=== PATIENT | male | born 1945 | race Caucasian/White ===

== ENCOUNTER 2016-10-18 18:37 | Inpatient (IN) ==
[2016-10-18] MEDS ORDERED: 0.9 % Sodium Chloride 1,000 ML IVC ONE (18:53)
[2016-10-18 19:10] LABS: Basophils # 0.1 K/mcL (0.0-0.2); Basophils % 0.4 %; Eosinophils # 0.1 K/mcL (0.0-0.6); Eosinophils % 0.6 %; Hematocrit 34.2 % (37.5-50.1); Hemoglobin 11.6 g/dL (12.9-16.9); Immature Granulocytes % 0.7 % (0-4); Mean Corpuscular HGB Conc 33.9 g/dL (31.6-35.5); Mean Corpuscular Hemoglobin 29.2 pg (28.0-33.3); Mean Corpuscular Volume 86.1 fL (83.0-100.0); Mean Platelet Volume 9.6 fL (9.4-12.4); Monocytes # 1.3 K/mcL (0.0-1.3); Monocytes % 10.4 %; Platelet Count 388 K/mcL (140-400); Red Blood Count 3.97 M/mcL (4.19-5.50); Red Cell Distribution Width 19.1 % (11.5-14.5); Segmented Neutrophils % 79.9 %
[2016-10-18 19:15] LABS: INR 1.2; Prothrombin Time 12.7 Seconds (9.4-12.1)
[2016-10-18 19:18] LABS: Activated Partial Thrombo Time 31.5 Seconds (26.0-36.0)
[2016-10-18 19:29] LABS: Alanine Aminotransferase 184 Units/L (0-55); Albumin/Globulin Ratio 0.5 (1.1-2.2); Alkaline Phosphatase 1223 Units/L (38-126); Amylase 83 Units/L (25-125); Aspartate Amino Transferase 176 Units/L (5-34); BUN/Creatinine Ratio 30 (6-26); Bilirubin,Direct 13.4 mg/dL (0.0-0.5); Bilirubin,Indirect 4.9 mg/dL (0.0-1.2); Bilirubin,Total 18.3 mg/dL (0.2-1.2); Blood Urea Nitrogen 30 mg/dL (8-26); Calcium 9.1 mg/dL (8.6-10.8); Carbon Dioxide 21 mEq/L (19-29); Chloride 102 mEq/L (98-109); Globulin 4.4 g/dL (2.4-3.5); Glucose 223 mg/dL (70-99); Lipase 175 Units/L (8-78); Osmolality,Calculated 283 (280-300); Sodium 130 mEq/L (136-145); Total Protein 6.4 g/dL (6.0-8.3); eGFR For African Americans > 60 (> 60); eGFR For Non-African Americans > 60 (> 60)
--- NOTE | 2016-10-18 20:09 | Emergency Department Note ---
Disposition Clinical Impression: Transaminitis, Jaundice Disposition: Admitted As Inpatient Condition: Critical [facility] Care Provider[facility] - Forms: ED Satisfaction Letter General Adult HPI - General Chief complaint: ED Recheck/Abnormal Lab/Rx Stated complaint: abnormal labs, ill Time Seen by Provider: 10/18/16 18:45 Source: patient Nursing Notes Reviewed: Yes Vital Signs Reviewed: Yes - History of Present Illness HPI Narrative: 71-year-old male who presents with concern for painless jaundice. Apparently he has been monitored at the [facility] for painless jaundice which has been worsening for approximately one month. He has no abdominal pain at this time. His family actually reported that his blood work has been worsening and the family does have a physician who reviewed the lab work and recommended the patient come to the emergency department. The patient is significantly jaundiced on arrival, pain free, vital signs stable. Pain Scale: 0 - Related Data Allergies Allergy/AdvReac Type Severity Reaction Status Date / Time No Known Allergies Allergy Verified 10/18/16 18:43 All systems ED: reviewed and negative except as stated. Past Medical History - Past Medical History Medical history: Reports: diabetes, hypertension Psychiatric history: Reports: no psych history - Social History Smoking Status: Current every day smoker Alcohol use: Reports: heavy Physical Exam Pupils equal round reactive to light extract illness movements normal Mucous membranes are moist Trachea is midline Cardiovascular exam is without murmur, rub, gallop Pulmonary exams without rales, rhonchi, wheezing Abdomen is soft and nontender without peritonitis Extremities are well perfused without edema Neurologic exams without focal neurological deficit Systemic jaundice noted scleral icterus noted - General General appearance: alert, in no apparent distress Course Vital Signs Temperature 97.4 F L 10/18/16 18:38 Pulse Rate 104 10/18/16 18:38 Respiratory Rate 14 10/18/16 18:38 Blood Pressure 145/79 10/18/16 18:38 O2 Sat by Pulse Oximetry 99 10/18/16 18:38 Temperature 97.4 F L 10/18/16 18:38 Pulse Rate 88 10/18/16 21:47 Respiratory Rate 16 10/18/16 21:47 Blood Pressure 158/72 10/18/16 21:47 O2 Sat by Pulse Oximetry 97 10/18/16 21:47 Oxygen Delivery Oxygen Delivery Room Air Medical Decision Making - MDM Narrative Medical decision making narrative: Systemic jaundice, concern for pancreatic mass, etiology is broad but could include stricture versus pancreatic cancer versus gallbladder dysfunction. I am concerned about possible pancreatic mass at this point. He does have significant transaminitis and elevated bilirubin levels. IV fluids were provided. CT scan shows mass versus stricture. There is ongoing transaminitis. Patient will need admission for MRCP. Discussed results with family. - Lab Data Result diagrams: 10/18/16 19:01 10/18/16 19:01 Lab Results 10/18/16 10/18/16 10/18/16 Range/Units 19:01 19:01 19:01 WBC 12.6 H (4.3-11.1) K/mcL RBC 3.97 L (4.19-5.50) M/mcL Hgb 11.6 L (12.9-16.9) g/dL Hct 34.2 L (37.5-50.1) % MCV 86.1 (83.0-100.0) fL MCH 29.2 (28.0-33.3) pg MCHC 33.9 (31.6-35.5) g/dL RDW 19.1 H (11.5-14.5) % Plt Count 388 (140-400) K/mcL MPV 9.6 (9.4-12.4) fL Immature Gran % 0.7 (0-4) % Seg Neutrophils % 79.9 % Lymphocytes % 8.0 % Monocytes % 10.4 % Eosinophils % 0.6 % Basophils % 0.4 % Neutrophils # 10.0 H (1.6-8.9) K/mcL Lymphocytes # 1.0 (0.6-4.6) K/mcL Monocytes # 1.3 (0.0-1.3) K/mcL Eosinophils # 0.1 (0.0-0.6) K/mcL Basophils # 0.1 (0.0-0.2) K/mcL PT 12.7 H (9.4-12.1) Seconds INR 1.2 APTT 31.5 (26.0-36.0) Seconds Sodium 130 L (136-145) mEq/L Potassium 4.0 (3.5-4.5) mEq/L Chloride 102 (98-109) mEq/L Carbon Dioxide 21 (19-29) mEq/L BUN 30 H (8-26) mg/dL Creatinine 1.00 (0.72-1.25) mg/dL Est GFR ( Amer) > 60 (> 60) Est GFR (Non-Af Amer) > 60 (> 60) BUN/Creatinine Ratio 30 H (6-26) Glucose 223 H (70-99) mg/dL Calculated Osmolality 283 (280-300) Lactic Acid (0.5-2.2) mmol/L Calcium 9.1 (8.6-10.8) mg/dL Total Bilirubin 18.3 H (0.2-1.2) mg/dL Direct Bilirubin 13.4 H (0.0-0.5) mg/dL Indirect Bilirubin 4.9 H (0.0-1.2) mg/dL AST 176 H (5-34) Units/L ALT 184 H (0-55) Units/L Alkaline Phosphatase 1223 H (38-126) Units/L Ammonia (18-72) mcmol/L Troponin I (0-0.03) ng/mL Serum Total Protein 6.4 (6.0-8.3) g/dL Albumin 2.0 L (3.5-5.0) g/dL Globulin 4.4 H (2.4-3.5) g/dL Albumin/Globulin Ratio 0.5 L (1.1-2.2) Amylase 83 (25-125) Units/L Lipase 175 H (8-78) Units/L Urine Color (Yellow) Urine Clarity (Clear) Urine pH (5.0-8.0) pH Units Ur Specific Milton (1.010-1.025) Urine Protein (Neg-Trace) mg/dL Urine Glucose (UA) (Normal) mg/dL Urine Ketones (Negative) mg/dL Urine Blood (Negative) Urine Nitrite (Negative) Urine Bilirubin (Negative) Urine Urobilinogen (Normal) mg/dL Ur Leukocyte Esterase (Negative) Urine Microscopic RBC (0-3) per hpf Urine Microscopic WBC (0-3) per hpf Ur Squamous Epith Cells (None-Few) per lpf Ur Transition Epith Cell (None-Few) per hpf Ur Renal Epithelial Cell (None-Few) per hpf Urine Bacteria (None-Few) per hpf Hyaline Casts (None-Few) per lpf Urine Mucus (Few) Ur Culture Indicated? (NO) 03/26/17 03/26/17 03/26/17 Range/Units 19:01 19:01 19:01 WBC (4.3-11.1) K/mcL RBC (4.19-5.50) M/mcL Hgb (12.9-16.9) g/dL Hct (37.5-50.1) % MCV (83.0-100.0) fL MCH (28.0-33.3) pg MCHC (31.6-35.5) g/dL RDW (11.5-14.5) % Plt Count (140-400) K/mcL MPV (9.4-12.4) fL Immature Gran % (0-4) % Seg Neutrophils % % Lymphocytes % % Monocytes % % Eosinophils % % Basophils % % Neutrophils # (1.6-8.9) K/mcL Lymphocytes # (0.6-4.6) K/mcL Monocytes # (0.0-1.3) K/mcL Eosinophils # (0.0-0.6) K/mcL Basophils # (0.0-0.2) K/mcL PT (9.4-12.1) Seconds INR APTT (26.0-36.0) Seconds Sodium (136-145) mEq/L Potassium (3.5-4.5) mEq/L Chloride (98-109) mEq/L Carbon Dioxide (19-29) mEq/L BUN (8-26) mg/dL Creatinine (0.72-1.25) mg/dL Est GFR ( Amer) (> 60) Est GFR (Non-Af Amer) (> 60) BUN/Creatinine Ratio (6-26) Glucose (70-99) mg/dL Calculated Osmolality (280-300) Lactic Acid 0.6 (0.5-2.2) mmol/L Calcium (8.6-10.8) mg/dL Total Bilirubin (0.2-1.2) mg/dL Direct Bilirubin (0.0-0.5) mg/dL Indirect Bilirubin (0.0-1.2) mg/dL AST (5-34) Units/L ALT (0-55) Units/L Alkaline Phosphatase (38-126) Units/L Ammonia 17 L (18-72) mcmol/L Troponin I 0.00 (0-0.03) ng/mL Serum Total Protein (6.0-8.3) g/dL Albumin (3.5-5.0) g/dL Globulin (2.4-3.5) g/dL Albumin/Globulin Ratio (1.1-2.2) Amylase (25-125) Units/L Lipase (8-78) Units/L Urine Color (Yellow) Urine Clarity (Clear) Urine pH (5.0-8.0) pH Units Ur Specific Milton (1.010-1.025) Urine Protein (Neg-Trace) mg/dL Urine Glucose (UA) (Normal) mg/dL Urine Ketones (Negative) mg/dL Urine Blood (Negative) Urine Nitrite (Negative) Urine Bilirubin (Negative) Urine Urobilinogen (Normal) mg/dL Ur Leukocyte Esterase (Negative) Urine Microscopic RBC (0-3) per hpf Urine Microscopic WBC (0-3) per hpf Ur Squamous Epith Cells (None-Few) per lpf Ur Transition Epith Cell (None-Few) per hpf Ur Renal Epithelial Cell (None-Few) per hpf Urine Bacteria (None-Few) per hpf Hyaline Casts (None-Few) per lpf Urine Mucus (Few) Ur Culture Indicated? (NO) 10/18/16 Range/Units 20:42 WBC (4.3-11.1) K/mcL RBC (4.19-5.50) M/mcL Hgb (12.9-16.9) g/dL Hct (37.5-50.1) % MCV (83.0-100.0) fL MCH (28.0-33.3) pg MCHC (31.6-35.5) g/dL RDW (11.5-14.5) % Plt Count (140-400) K/mcL MPV (9.4-12.4) fL Immature Gran % (0-4) % Seg Neutrophils % % Lymphocytes % % Monocytes % % Eosinophils % % Basophils % % Neutrophils # (1.6-8.9) K/mcL Lymphocytes # (0.6-4.6) K/mcL Monocytes # (0.0-1.3) K/mcL Eosinophils # (0.0-0.6) K/mcL Basophils # (0.0-0.2) K/mcL PT (9.4-12.1) Seconds INR APTT (26.0-36.0) Seconds Sodium (136-145) mEq/L Potassium (3.5-4.5) mEq/L Chloride (98-109) mEq/L Carbon Dioxide (19-29) mEq/L BUN (8-26) mg/dL Creatinine (0.72-1.25) mg/dL Est GFR ( Amer) (> 60) Est GFR (Non-Af Amer) (> 60) BUN/Creatinine Ratio (6-26) Glucose (70-99) mg/dL Calculated Osmolality (280-300) Lactic Acid (0.5-2.2) mmol/L Calcium (8.6-10.8) mg/dL Total Bilirubin (0.2-1.2) mg/dL Direct Bilirubin (0.0-0.5) mg/dL Indirect Bilirubin (0.0-1.2) mg/dL AST (5-34) Units/L ALT (0-55) Units/L Alkaline Phosphatase (38-126) Units/L Ammonia (18-72) mcmol/L Troponin I (0-0.03) ng/mL Serum Total Protein (6.0-8.3) g/dL Albumin (3.5-5.0) g/dL Globulin (2.4-3.5) g/dL Albumin/Globulin Ratio (1.1-2.2) Amylase (25-125) Units/L Lipase (8-78) Units/L Urine Color Alexander A (Yellow) Urine Clarity Clear (Clear) Urine pH 6.0 (5.0-8.0) pH Units Ur Specific Milton 1.022 (1.010-1.025) Urine Protein 30 H (Neg-Trace) mg/dL Urine Glucose (UA) 500 H (Normal) mg/dL Urine Ketones Negative (Negative) mg/dL Urine Blood Negative (Negative) Urine Nitrite Negative (Negative) Urine Bilirubin Large H (Negative) Urine Urobilinogen Normal (Normal) mg/dL Ur Leukocyte Esterase Negative (Negative) Urine Microscopic RBC 3-5 H (0-3) per hpf Urine Microscopic WBC 0-3 (0-3) per hpf Ur Squamous Epith Cells Moderate H (None-Few) per lpf Ur Transition Epith Cell Few (None-Few) per hpf Ur Renal Epithelial Cell Few (None-Few) per hpf Urine Bacteria Few (None-Few) per hpf Hyaline Casts None Seen (None-Few) per lpf Urine Mucus Few (Few) Ur Culture Indicated? NO (NO) Critical Care Time Total Critical Care Time: 31 Attestation: I spent greater than 31 minutes resuscitating this acutely L and injured male suffering from hepatic failure and biliary obstruction. He had significant transaminitis, systemic jaundice, critical care time was excluding billable procedures. He remains in critical condition with a high potential for life- threatening deterioration.
[2016-10-18 20:50] LABS: Bilirubin,Urine Large (Negative); Blood,Urine Negative (Negative); Color,Urine Orange (Yellow); Glucose,Urine (UA) 500 mg/dL (Normal); Ketones,Urine Negative (Negative); Leukocyte Esterase,Urine Negative (Negative); Nitrite,Urine Negative (Negative); Protein,Urine 30 mg/dL (Neg-Trace); Specific Gravity,Urine 1.022 (1.010-1.025); Urobilinogen,Urine Normal (Normal)
[2016-10-18 20:52] LABS: Hyaline Casts,Urine None Seen per lpf (None-Few); Squamous Epithelial Cell,Urine Moderate per lpf (None-Few); WBC,Urine 0-3 per hpf (0-3)
[2016-10-18 20:53] LABS: Clarity,Urine Clear (Clear)
[2016-10-18 21:10] LABS: Mucus,Urine Few (Few)
[2016-10-18 21:11] LABS: Bacteria,Urine Few per hpf (None-Few); Renal Epithelial Cells,Urine Few per hpf (None-Few); Transitional Epi Cells,Urine Few per hpf (None-Few)
[2016-10-19] MEDS ORDERED: *HR* HYDROmorphone (PF) 1 MG/ML SYRINGE IVP ONE (00:18)
[2016-10-19] MEDS ORDERED: Naloxone 0.4 MG/ML INJ IVP PRN (01:47)
[2016-10-19] MEDS ORDERED: Dextrose Gel 15 GM PO PRN ×2 (02:01)
[2016-10-19] MEDS ORDERED: D5% in Water 1,000 ML IVC PRN (02:01)
--- NOTE | 2016-10-19 02:06 | Internal Med History&Physical ---
Date of Encounter: 10/19/16 Time of Encounter: 01:46 Assessment and Plan (1) Obstructive jaundice Current visit: Yes Status: Acute Painless jaundice and labs showed total bilirubin of 18.3, ALT 184, AST 176, Alkaline phosphatase 1223. CT scan of abdomen showed Prominent dilatation of the biliary and pancreatic ducts - Mass versus stricture at the level of the distal common bile duct. Heterogeneity at the pancreatic head with parenchymal calcifications. Will obtain MRCP for further evaluation; GI consultation. No concern for cholangitis at this time, hence no antibiotics started. (2) COPD (chronic obstructive pulmonary disease) Current visit: Yes Status: Chronic Duonebs PRN Qualifiers: COPD type: unspecified COPD Qualified Code(s): J44.9 - Chronic obstructive pulmonary disease, unspecified (3) Diabetes mellitus Current visit: Yes Status: Chronic Sliding scale insulin Qualifiers: Diabetes mellitus type: type 2 Diabetes mellitus complication status: with unspecified complications Diabetes mellitus long-term insulin use: without long-term use Qualified Code(s): E11.8 - Type 2 diabetes mellitus with unspecified complications Internal Medicine - H&P: HPI Chief complaint: Jaundice Admitted From: Emergency Dept Plans for Post Hospital Care: Home History of present illness: Mr. Thurston is a 71 year old male with past medical h/o diabetes mellitus, hypertension, COPD. He apparently was noted to have jaundice about a month ago. He was being investigated at [facility]. He apparently was noted to have jaundice about a month ago. He apparently had a CT scan of the abdomen and apparently was referred to for further evaluation. His family members visited him yesterday and were concerned about his jaundice and wanted him to be evaluated in the ER. He was evaluated in the ER and the labs showed total bilirubin of 18.3, ALT 184, AST 176, Alkaline phosphatase 1223. CT scan of abdomen showed Prominent dilatation of the biliary and pancreatic ducts - Mass versus stricture at the level of the distal common bile duct. Heterogeneity at the pancreatic head with parenchymal calcifications. Pt is very hard of hearing. His is at the bedside and is able to give the clinical details. Yellowish discoloration of the skin for about a month. He has dark urine. Stool apparently floats when flushed. Denies abdominal pain. No significant nausea or vomiting. Has good appetite. No significant weight loss. No fever, chills, chest pain, shortness of breath, no change in the cough. He has diarrhea. No dysuria or hematuria. Family Hx reviewed and is non-contributory to current admission. Past Med Surg Social Fam HX - Past Medical History Medical history: COPD, diabetes, hyperlipidemia, hypertension Psychiatric history: no psych history - Social History Smoking Status: Current every day smoker Packs per day: 1 Smokeless Tobacco Status: No Alcohol use: none Drug use: none Internal Medicine - H&P: Meds Allergies No Known Allergies Allergy (Verified 10/18/16 18:43) All Systems PM: A 10-system review of systems was performed and is negative for pertinent findings except as documented above in the HPI. - Constitutional Vitals: Temp Pulse Resp BP Pulse Ox 97.6 F 106 14 167/77 97 10/19/16 01:09 10/19/16 01:09 10/19/16 01:09 10/19/16 01:09 10/19/16 01:09 Exam: General: Not in acute distress at the time of my evaluation. HEENT: Oral mucosa is dry. Scleral icterus present Neck: No obvious neck swellings Lungs: Clear to auscultation Cardiac: Regular rate and rhythm. No significant murmurs Abdomen: Soft, non tender. Bowel sounds present Genitourinary: No chun catheter Neurological: Alert and oriented. No gross localizing deficits. Very hard of renetta Psych: Not aggressive or agitated Extremities: no significant leg edema Skin: Lemon yellow discoloration of skin present. Spider nevi present Internal Med - H&P Results - Labs CBC & Chem 7: 10/18/16 19:01 10/18/16 19:01 - EKG Data -: EKG Interpreted by Myself EKG shows normal: sinus rhythm Rate: normal - Impressions Impressions Abdomen/Pelvis CT 10/18/16 21:41 IMPRESSION: 1. Prominent dilatation of the biliary and pancreatic ducts. Mass versus stricture at the level of the distal common bile duct. Recommend follow-up evaluation with ERCP or MRI/MRCP. 2. Heterogeneity at the pancreatic head with parenchymal calcifications. This may be sequela of chronic pancreatitis. Please correlate with any potential history. An underlying pancreatic mass cannot be excluded. 3. No CT evidence of metastatic disease in the abdomen or pelvis. D/ / Tushar Rodrigues MD / Tushar Rodrigues MD Interpreting Provider: Tushar Rodrigues MD
[2016-10-19] MEDS ORDERED: Ipratropium/Albuterol Neb 3 ML IH PRN (02:17)
[2016-10-19] MEDS: 0.9 % Sodium Chloride 1,000 ML IVC SCH ×2 (02:29→09:55)
[2016-10-19] MEDS ORDERED: *HR* Morphine 2 MG/ML SYRINGE IVP ONE (03:58)
[2016-10-19] MEDS: *HR* Dextrose 50 % in Water (Syg) 50 ML SYRINGE IVP PRN ×2 (05:33→11:46)
[2016-10-19] MEDS: Insulin LISPRO 300 UNITS/3 ML VIAL SQ SCH ×3 (05:36→16:19)
[2016-10-19] MEDS ORDERED: *HR* Morphine 2 MG/ML SYRINGE IVP PRN (07:33)
--- NOTE | 2016-10-19 07:48 | Event Note ---
Date of Encounter: 10/19/16 Time of Encounter: 07:45 patient with history of diabetes, htn and copd being evaluated at [facility] for obstructive jaundice brought in by family due to worsening jaundice and weight loss bilirubin 18.3 and alk 1223 currently in lots of pain Gi consulted ct shows CBD dilatation and mass at head of pancrease GI evaluation pending
[2016-10-19] MEDS: *HR* HYDROmorphone (PF) 1 MG/ML SYRINGE IVP PRN ×3 (08:00→17:05)
[2016-10-19 10:03] LABS: Basophils % 0.2 %; Eosinophils % 0.2 %; Hematocrit 30.7 % (37.5-50.1); Hemoglobin 10.5 g/dL (12.9-16.9); Immature Granulocytes % 0.9 % (0-4); Lymphocytes # 1.1 K/mcL (0.6-4.6); Mean Corpuscular HGB Conc 34.2 g/dL (31.6-35.5); Mean Corpuscular Hemoglobin 29.3 pg (28.0-33.3); Mean Corpuscular Volume 85.8 fL (83.0-100.0); Mean Platelet Volume 9.4 fL (9.4-12.4); Monocytes # 1.6 K/mcL (0.0-1.3); Monocytes % 8.5 %; Neutrophils # 15.3 K/mcL (1.6-8.9); Platelet Count 388 K/mcL (140-400); Red Blood Count 3.58 M/mcL (4.19-5.50); Red Cell Distribution Width 19.2 % (11.5-14.5); Segmented Neutrophils % 84.2 %
[2016-10-19 11:36] LABS: Alanine Aminotransferase 164 Units/L (0-55); Albumin/Globulin Ratio 0.5 (1.1-2.2); Alkaline Phosphatase 1131 Units/L (38-126); Aspartate Amino Transferase 174 Units/L (5-34); BUN/Creatinine Ratio 27 (6-26); Calcium 8.6 mg/dL (8.6-10.8); Carbon Dioxide 18 mEq/L (19-29); Chloride 108 mEq/L (98-109); Osmolality,Calculated 274 (280-300); Potassium 3.8 mEq/L (3.5-4.5); Sodium 133 mEq/L (136-145); Total Protein 5.8 g/dL (6.0-8.3); eGFR For African Americans > 60 (> 60); eGFR For Non-African Americans > 60 (> 60)
[2016-10-19 11:38] LABS: Blood Urea Nitrogen 18 mg/dL (8-26)
[2016-10-19 11:39] LABS: Albumin 1.8 g/dL (3.5-5.0); Glucose 37 mg/dL (70-99)
--- NOTE | 2016-10-19 12:57 | Gastroenterology Consult Note ---
<Rai Urena - Last Filed: 10/19/16 12:54> Date of Encounter: 10/19/16 Time of Encounter: 11:45 - Assessment and plan (1) Obstructive jaundice Current Visit: Yes Status: Acute Assessment and plan: CT A/P with prominent dilation of the CBD proximally to 13 mm with abrupt narrowing of the mid CBD. Pancreatic duct stump dilated to 7 mm. Heterogeneity at the pancreatic head with parenchymal calcifications, underlying pancreatic mass cannot be excluded. MRI with suspected pancreatic head mass measuring 2 x 1.5 cm causing biliary and pancreatic ductal obstruction. Plan for EUS and ERCP today. CEA normal at 3.6, CA 19-9 pending. (2) COPD (chronic obstructive pulmonary disease) Current Visit: Yes Status: Chronic Assessment and plan: Management per primary team. Qualifiers: COPD type: unspecified COPD Qualified Code(s): J44.9 - Chronic obstructive pulmonary disease, unspecified - Time Spent With Patient Total time spent is greater than 50% in coordination of care (as documented) at patient's floor/unit and/or counseling patient: GI History of Present Illness - Data of Consult Patient: new to practice Consult date: 10/19/16 Requesting Physician: Mounika Jones - Consult Narrative Reason for consult: Obstructive jaundice History of present illness: Mr. Thurston is a 71 year old male with PMHx of COPD, DM, HLD, HTN [facility]. In the ED, TB 18.3, DB 13.4, AST 176, ALT 184, Alk phos 1223. CT A/P showed promintent dilation of the biliary and pancreatic ducts, mass vs stricture at the distal CBD, heterogeneity at the pancreatic head with panenchymal calcifications. Pt is very hard of hearing. Pt very sleepy, and unable to open eyes due to sedation for MRI.History obtained from medical records and . No fever, chills, chest pain, SOB, abdominal pain , nausea, vomiting, or weight loss. Procedures: None NSAIDs: None Anticoagulation: None Past Med Surg Social Fam HX - Past Medical History Medical history: COPD, diabetes, hyperlipidemia, hypertension Psychiatric history: no psych history - Social History Smoking Status: Current every day smoker Packs per day: 1 Smokeless Tobacco Status: No Alcohol use: none Drug use: none ROS unobtainable: other (Sedation from MRI) - Constitutional Vitals: Temp Pulse Resp BP Pulse Ox 97.4 F L 93 14 165/70 97 10/19/16 11:47 10/19/16 11:47 10/19/16 11:47 10/19/16 11:47 10/19/16 11:47 General appearance: Present: cooperative, A&O X 3, no acute distress, answers questions appropriately - Head Head exam: Present: atraumatic, normocephalic - Eye Eye exam: Present: scleral icterus - ENT ENT exam: Present: mucous membranes dry - Neck Neck exam general surgery: Present: normal inspection, trachea midline - Respiratory Respiratory exam: Present: decreased breath sounds, CTAB - Cardiovascular Cardiovascular exam: Present: RRR, +S1, +S2 - GI/Abdominal GI/Abdominal exam: Present: soft, no peritoneal signs. Absent: distended, firm , tenderness - Rectal Rectal exam: Present: deferred - Extremities Exam Extremities exam: Present: warm - Neurological Exam Neurological exam: Present: no focal deficits - Psychiatric Psychiatric exam: Present: normal affect, normal mood - Skin Skin exam: Present: dry, intact, warm. Absent: normal color (Jaundice) Results - Labs CBC & Chem 7: 10/19/16 09:53 10/19/16 09:53 Labs: Last Result Calcium 8.6 mg/dL (8.6-10.8) 10/19/16 09:53 Troponin I 0.00 ng/mL (0-0.03) 10/18/16 19:01 Entire Visit Hgb 10.5 g/dL (12.9-16.9) L 10/19/16 09:53 Hct 30.7 % (37.5-50.1) L 10/19/16 09:53 PT 12.7 Seconds (9.4-12.1) H 10/18/16 19:01 Total Bilirubin 17.0 mg/dL (0.2-1.2) H 10/19/16 09:53 AST 174 Units/L (5-34) H 10/19/16 09:53 ALT 164 Units/L (0-55) H 10/19/16 09:53 Ammonia 17 mcmol/L (18-72) L 10/18/16 19:01 Amylase 83 Units/L (25-125) 10/18/16 19:01 Lipase 175 Units/L (8-78) H 10/18/16 19:01 Carcinoembryonic Ag 3.6 ng/mL (0-5.0) 10/19/16 09:53 - ABG ABG results: PT/INR, D-dimer PT 12.7 Seconds (9.4-12.1) H 10/18/16 19:01 - Impressions Impressions Abdomen MRI 10/19/16 01:58 IMPRESSION: 1. Suspected pancreatic head mass measuring 2.0 x 1.5 cm causing biliary and pancreatic ductal obstruction. Lack of intravenous contrast limits evaluation. 2. No evidence of cholelithiasis but there is mild gallbladder wall thickening and pericholecystic edema which is nonspecific. If there is concern for acute cholecystitis, HIDA scan can be performed. D/ / Wes Collins MD / Wes Collins MD Interpreting Provider: Wes Collins MD Consult Discharge Plan - Plan [facility]errals: [facility] [Primary Care Provider[facility] - <Jose Raul Jaffe - Last Filed: 10/19/16 21:05> Time of Encounter: 14:00 - Time Spent With Patient Total time spent is greater than 50% in coordination of care (as documented) at patient's floor/unit and/or counseling patient: GI History of Present Illness - Data of Consult Requesting Physician: Mounika Jones - Consult Narrative History of present illness: Mr. Thurston is a 71 year old male - Constitutional Vitals: Temp Pulse Resp BP Pulse Ox 98.3 F 95 16 155/71 95 10/19/16 19:09 10/19/16 19:09 10/19/16 19:09 10/19/16 19:09 10/19/16 19:42 Results - Labs CBC & Chem 7: 10/19/16 09:53 10/19/16 09:53 Labs: Last Result Calcium 8.6 mg/dL (8.6-10.8) 10/19/16 09:53 Troponin I 0.00 ng/mL (0-0.03) 10/18/16 19:01 Entire Visit Hgb 10.5 g/dL (12.9-16.9) L 10/19/16 09:53 Hct 30.7 % (37.5-50.1) L 10/19/16 09:53 PT 12.7 Seconds (9.4-12.1) H 10/18/16 19:01 Total Bilirubin 17.0 mg/dL (0.2-1.2) H 10/19/16 09:53 AST 174 Units/L (5-34) H 10/19/16 09:53 ALT 164 Units/L (0-55) H 10/19/16 09:53 Ammonia 17 mcmol/L (18-72) L 10/18/16 19:01 Amylase 83 Units/L (25-125) 10/18/16 19:01 Lipase 175 Units/L (8-78) H 10/18/16 19:01 Carcinoembryonic Ag 3.6 ng/mL (0-5.0) 10/19/16 09:53 - ABG ABG results: PT/INR, D-dimer PT 12.7 Seconds (9.4-12.1) H 10/18/16 19:01 - Impressions Impressions Abdomen MRI 10/19/16 01:58 IMPRESSION: 1. Suspected pancreatic head mass measuring 2.0 x 1.5 cm causing biliary and pancreatic ductal obstruction. Lack of intravenous contrast limits evaluation. 2. No evidence of cholelithiasis but there is mild gallbladder wall thickening and pericholecystic edema which is nonspecific. If there is concern for acute cholecystitis, HIDA scan can be performed. D/ / Wes Collins MD / Wes Collins MD Interpreting Provider: Wes Collins MD - Attending Attestation I examined this patient and my medical decision-making was reviewed with the LOTTERIES AGENT/PA/Advanced Practice Nurse/Resident Physician. I agree with the documented findings, disposition and treatment plan as described except to the extent set forth below.
[2016-10-20] MEDS: *HR* Dextrose 50 % in Water (Syg) 50 ML SYRINGE IVP PRN (00:33)
--- NOTE | 2016-10-20 01:02 | Anesthesia Evaluation PreOp ---
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 HX Other Medical History: Diabetes Type II, Other (Obstructive Jaundice) Alcohol Use: none Drug use: none Medications and Allergies Aspirin 81 mg PO DAILY 10/19/16 [History] Atorvastatin Calcium [Lipitor] 20 mg PO DAILY 10/19/16 [History] Cholecalciferol (Vitamin D3) [Vitamin D] 2,000 unit PO DAILY 10/19/16 [History] Insulin Glargine [Lantus] 25 unit SQ DAILY 10/19/16 [History] Lisinopril [Zestril] 5 mg PO DAILY 10/19/16 [History] Loperamide HCl [Imodium A-D] 2 mg PO BID PRN 10/19/16 [History] Allergies No Known Allergies Allergy (Verified 10/19/16 10:16) - Meds/Allergy Pre-op Review Medications Reviewed: Yes Allergies Reviewed: Yes Beta Blockers on Current Med List: No Anesthesia Results - Labs 10/19/16 09:53 10/19/16 09:53 - Imaging EKG: report reviewed (NSR according to internal Med H&P) Anesthesia Exam O2 Sat Weight 57.8 kg Weight 57.833 kg O2 Sat by Pulse Oximetry 94 O2 Sat by Pulse Oximetry 95 O2 Sat by Pulse Oximetry 95 O2 Sat by Pulse Oximetry 95 O2 Sat by Pulse Oximetry 97 O2 Sat by Pulse Oximetry 95 O2 Sat by Pulse Oximetry 97 Vital Signs Temp Pulse Resp BP Pulse Ox 97.4 F L 104 14 145/79 99 10/18/16 18:38 10/18/16 18:38 10/18/16 18:38 10/18/16 18:38 10/18/16 18:38 Vital Signs/O2 Sat, Most Current Temp Pulse Resp BP Pulse Ox 98.1 F 86 18 126/60 94 L 10/20/16 00:28 10/20/16 00:28 10/20/16 00:28 10/20/16 00:28 10/20/16 00:28 Height: 5'7'' Weight: 127# NPO (# of Hours): > 8 hrs <Virgie Parker M - Last Filed: 10/20/16 12:30> - Past History 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 Stricture at distal CBD) Anesthesia Results - Labs 10/20/16 04:50 10/20/16 04:50 Laboratory Results Impressions Abdomen/Pelvis CT 10/18/16 21:41 IMPRESSION: 1. Prominent dilatation of the biliary and pancreatic ducts. Mass versus stricture at the level of the distal common bile duct. Recommend follow-up evaluation with ERCP or MRI/MRCP. 2. Heterogeneity at the pancreatic head with parenchymal calcifications. This may be sequela of chronic pancreatitis. Please correlate with any potential history. An underlying pancreatic mass cannot be excluded. 3. No CT evidence of metastatic disease in the abdomen or pelvis. D/ / Tushar Rodrigues MD / Tushar Rodrigues MD Interpreting Provider: Tushar Rodrigues MD Abdomen MRI 10/19/16 01:58 IMPRESSION: 1. Suspected pancreatic head mass measuring 2.0 x 1.5 cm causing biliary and pancreatic ductal obstruction. Lack of intravenous contrast limits evaluation. 2. No evidence of cholelithiasis but there is mild gallbladder wall thickening and pericholecystic edema which is nonspecific. If there is concern for acute cholecystitis, HIDA scan can be performed. D/ / Wes Collins MD / Wes Collins MD Interpreting Provider: Wes Collins MD Laboratory Tests 10/18/16 10/20/16 10/20/16 19:01 04:50 05:35 PT 12.7 H INR 1.2 APTT 31.5 Est GFR (Non-Af Amer) > 60 POC Glucose 75 Calcium 8.1 L Magnesium 1.2 L Anesthesia Exam Vital Signs Temp Pulse Resp BP Pulse Ox 10/20/16 08:06 98.0 F 89 22 152/72 95 10/20/16 06:54 96 10/20/16 03:54 97.9 F 103 18 160/72 96 10/20/16 00:28 98.1 F 86 18 126/60 94 L 10/19/16 19:42 95 10/19/16 19:09 98.3 F 95 16 155/71 95 10/19/16 15:18 97.6 F 97 14 129/66 95 Intake and Output 10/19/16 10/20/16 10/20/16 23:59 07:59 15:59 Intake Total 1360 / 1360 500 / 500 871 / 871 Output Total 400 / 400 125 / 125 100 / 100 Balance 960 / 960 375 / 375 771 / 771 Intake: IV Fluids 1000 / 1000 500 / 500 331 / 331 0.9 % Sodium Chloride 1, 1000 / 1000 500 / 500 125 / 125 000 ML @ 100 mls/hr IVC . Q10H MESERET Rx#:[id number] Magnesium Sulfate 1 GM In 206 / 206 Dextrose 5% 100 ML @ 100 mls/hr IVPB ONCE ONE Rx# :[id number] Oral 360 / 360 540 / 540 Output: Urine 400 / 400 125 / 125 100 / 100 Other: Meal Dinner Breakfast Percent of Meal Consumed 25% # Voids 1 1 Blood Glucose* 78 75 - HEENT Pupil (Motor): Pupils equal, EOMI Mallampati: II Teeth: Edentulous Oral Opening: Greater than 3 - PIPE TESTING TECHNICIAN LOC: Oriented PIPE TESTING TECHNICIAN Motor: Normal RUE, Normal LUE, Normal RLE, Normal LLE, Normal Face PIPE TESTING TECHNICIAN Sensory: Normal: RUE, LUE, RLE, LLE, Face - Cardiac Rhythm: Regular Murmur: Systolic JVD: No - Pulmonary Breath Sounds: bilateral Clear Respiratory Effort: Symmetrical Anesthesia Assess/Plan ASA Score: 3 (Obstructive Jaundice, COPD, DM, HTN) Modified Arlene Scale for Level of Consciousness: Cooperative, oriented, and tranquil Anesthetic Plan: General Monitoring Plan: Standard Monitors Recovery Plan: PACU Anes Supervising Prov Stmt: Pt seen/evaluated, Anesthesia Pre-op by MD Jose Armando reviewed. Agree w/plan for GETA. Pt agrees to proceed. Consent obtained. - MD Antonio
[2016-10-20] MEDS: *HR* HYDROmorphone (PF) 1 MG/ML SYRINGE IVP PRN ×3 (03:58→20:38)
[2016-10-20] MEDS: 0.9 % Sodium Chloride 1,000 ML IVC SCH ×2 (04:00→07:48)
[2016-10-20 05:20] LABS: Hematocrit 26.6 % (37.5-50.1); Hemoglobin 9.2 g/dL (12.9-16.9); Mean Corpuscular HGB Conc 34.6 g/dL (31.6-35.5); Mean Corpuscular Hemoglobin 30.2 pg (28.0-33.3); Mean Corpuscular Volume 87.2 fL (83.0-100.0); Mean Platelet Volume 10.4 fL (9.4-12.4); Platelet Count 343 K/mcL (140-400); Red Blood Count 3.05 M/mcL (4.19-5.50)
[2016-10-20 05:32] LABS: BUN/Creatinine Ratio 21 (6-26); Blood Urea Nitrogen 16 mg/dL (8-26); Calcium 8.1 mg/dL (8.6-10.8); Carbon Dioxide 18 mEq/L (19-29); Chloride 106 mEq/L (98-109); Glucose 83 mg/dL (70-99); Magnesium 1.2 mg/dL (1.6-2.6); Osmolality,Calculated 272 (280-300); Potassium 3.7 mEq/L (3.5-4.5); Sodium 131 mEq/L (136-145); eGFR For African Americans > 60 (> 60); eGFR For Non-African Americans > 60 (> 60)
[2016-10-20] MEDS: Insulin LISPRO 300 UNITS/3 ML VIAL SQ SCH ×4 (06:10→17:53)
[2016-10-20] MEDS ORDERED: Magnesium Sulfate 2 GM in D5% in Water 100 ML IVPB STA (07:21)
--- NOTE | 2016-10-20 08:18 | Electrocardiograph Report ---
[place] [id number] Test Date: 2016-10-18 Pat Name: Elias Thurston Department: 103 Room: 3A42 Gender: M Regional Medical Director: EMELYN : 1945 Requested By: Mounika Jones Order Number: [id number] Reading MD: Zach Coyle MD Measurements Intervals [place] Rate: 100 P: 43 NE: 194 QRS: 47 QRSD: 76 T: 60 QT: 340 QTc: 397 Interpretive Statements SINUS TACHYCARDIA Electronically Signed On 10-20-2016 8:17:16 EDT by Zach Coyle MD
[2016-10-20] MEDS ORDERED: Magnesium Sulfate 1 GM in D5% in Water 100 ML IVPB ONE (12:00)
[2016-10-20] MEDS: *HR* Heparin 5,000 UNIT/ML VIAL SQ SCH ×2 (12:06→17:58)
[2016-10-20] MEDS ORDERED: *HR* Succinylcholine 200 MG/10 ML VIAL IVP ONE (13:06)
[2016-10-20] MEDS ORDERED: Lidocaine -MPF 4% 5 ML AMPUL TP ONE (13:06)
[2016-10-20] MEDS ORDERED: *HR* Propofol 200 MG/20 ML VIAL IVP ONE (13:06)
[2016-10-20] MEDS ORDERED: *HR* FentaNYL (PF) 100 MCG/2 ML VIAL ONE (13:36)
--- NOTE | 2016-10-20 13:49 | Internal Med Progress Note ---
Date of Encounter: 10/20/16 Time of Encounter: 10:30 (He said he) - Assessment and plan (1) Abdominal pain Current Visit: Yes Status: Acute Assessment and plan: secondary to suspected pancreatic mass. pain control with dilaudid. may need palliative consult to address pain. Qualifiers: Abdominal location: upper abdomen, unspecified Qualified Code(s): R10.10 - Upper abdominal pain, unspecified (2) Obstructive jaundice Current Visit: Yes Status: Acute Assessment and plan: Bilirrubin on admission was 18. CT scan of abdomen showed Prominent dilatation of the biliary and pancreatic ducts - Mass versus stricture at the level of the distal common bile duct. Heterogeneity at the pancreatic head with parenchymal calcifications. MRCP of abdomen shows suspected pancreatic head mass 1x1.5 causing biliary and pancreatic ductal obstruction. Appreciate GI help. ERCP today. (3) Hyponatremia Current Visit: Yes Status: Acute Assessment and plan: Na 131. could be dehydration from poor oral intake. IVF (4) Hypomagnesemia Current Visit: Yes Status: Acute Assessment and plan: replete (5) Hypoalbuminemia Current Visit: Yes Status: Acute (6) Transaminitis Current Visit: Yes Status: Acute Assessment and plan: secondary to obstructive jaundice. close monitor. (7) COPD (chronic obstructive pulmonary disease) Current Visit: Yes Status: Chronic Assessment and plan: stable. nebs prn Qualifiers: COPD type: unspecified COPD Qualified Code(s): J44.9 - Chronic obstructive pulmonary disease, unspecified (8) Diabetes mellitus Current Visit: Yes Status: Chronic Assessment and plan: fasting glucose is 78. accucheck. 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 He reports some abdominal pain. no nausea. - Constitutional Vitals: Temp Pulse Resp BP Pulse Ox 98.0 F 98 20 139/113 94 L 10/20/16 08:06 10/20/16 12:55 10/20/16 12:55 10/20/16 12:55 10/20/16 12:55 General appearance: Present: A&O X 3 - Eye Eye exam: Present: PERRL, scleral icterus - Respiratory Respiratory exam: Present: CTAB - Cardiovascular Cardiovascular exam: Present: RRR - GI/Abdominal GI/Abdominal exam: Present: normal bowel sounds, soft. Absent: distended, tenderness - Extremities Exam Extremities exam: Present: pedal edema - Neurological Exam Neurological exam: Present: alert, oriented X3, strengths equal and symetr throughout. Absent: facial droop, speech deficit Internal Medicine: Result - Labs CBC & Chem 7: 10/20/16 04:50 10/20/16 04:50 Labs: Short CBC 10/20/16 Range/Units 04:50 WBC 12.0 H (4.3-11.1) K/mcL Hgb 9.2 L (12.9-16.9) g/dL Hct 26.6 L (37.5-50.1) % Plt Count 343 (140-400) K/mcL BMP 10/20/16 04:50 Sodium 131 L Potassium 3.7 Chloride 106 Carbon Dioxide 18 L BUN 16 Creatinine 0.78 Glucose 83 Calcium 8.1 L - ABG Interpretation ABG results: PT/INR, D-dimer PT 12.7 Seconds (9.4-12.1) H 10/18/16 19:01 Consult Discharge Plan - Plan [facility] Provider[facility] -
[2016-10-20] MEDS ORDERED: Indomethacin 50 MG SUPP.RECT RC ONE (16:32)
[2016-10-20] MEDS ORDERED: *HR* Promethazine 25 MG/ML VIAL ONE (17:17)
[2016-10-20] MEDS ORDERED: *HR* Promethazine 25 MG/ML VIAL IVP ONE (17:19)
--- NOTE | 2016-10-20 17:34 | Anesthesia Evaluation Post Op ---
Date of Encounter: 10/20/16 Time of Encounter: 17:30 - Vital Signs Vital Signs: Vital Signs/O2 Sat/Glucose, Most Recent Temp Pulse Resp BP Pulse Ox 98.0 F 91 18 156/69 98 10/20/16 17:08 10/20/16 17:08 10/20/16 17:08 10/20/16 17:08 10/20/16 17:08 Blood Glucose* 75 - Lungs Lungs: Clear Ascult./Percussion - Airway Airway: Non-obstructed - Cardiovascular Regular Rate - Mental Status Mental Status: Alert & Oriented, Answers Appropriately - Pain Pain Scale: 0 Pain Scale used: Numeric (1 - 10) - Nausea Vomiting Nausea Vomiting: Responds to treatment with IV Meds - Hydration Hydration: NPO, Has not voided Notes: 10/20/16 17:32 AAOx3,VSS, Patient given Phenergran 12.5mg IV per endoscopy nurse with moderate relief of symptoms at this time - Discharge PostOp Status: Transfer Patient to floor
[2016-10-21] MEDS: Insulin LISPRO 300 UNITS/3 ML VIAL SQ SCH ×2 (00:10→05:28)
[2016-10-21] MEDS: 0.9 % Sodium Chloride 1,000 ML IVC SCH ×2 (02:47→08:00)
[2016-10-21 04:54] LABS: Hematocrit 28.3 % (37.5-50.1); Hemoglobin 9.8 g/dL (12.9-16.9); Red Blood Count 3.25 M/mcL (4.19-5.50)
[2016-10-21 04:55] LABS: Basophils # 0.1 K/mcL (0.0-0.2); Basophils % 0.5 %; Eosinophils # 0.2 K/mcL (0.0-0.6); Eosinophils % 1.4 %; Immature Granulocytes % 0.5 % (0-4); Lymphocytes # 1.1 K/mcL (0.6-4.6); Lymphocytes % 9.7 %; Mean Corpuscular HGB Conc 34.6 g/dL (31.6-35.5); Mean Corpuscular Hemoglobin 30.2 pg (28.0-33.3); Mean Corpuscular Volume 87.1 fL (83.0-100.0); Mean Platelet Volume 10.6 fL (9.4-12.4); Monocytes # 1.4 K/mcL (0.0-1.3); Neutrophils # 8.2 K/mcL (1.6-8.9); Platelet Count 371 K/mcL (140-400); Red Cell Distribution Width 17.4 % (11.5-14.5); Segmented Neutrophils % 74.9 %
[2016-10-21 05:14] LABS: Alanine Aminotransferase 149 Units/L (0-55); Albumin/Globulin Ratio 0.4 (1.1-2.2); Alkaline Phosphatase 1091 Units/L (38-126); Aspartate Amino Transferase 148 Units/L (5-34); BUN/Creatinine Ratio 18 (6-26); Bilirubin,Indirect 3.7 mg/dL (0.0-1.2); Blood Urea Nitrogen 15 mg/dL (8-26); Calcium 8.1 mg/dL (8.6-10.8); Carbon Dioxide 20 mEq/L (19-29); Chloride 104 mEq/L (98-109); Globulin 3.6 g/dL (2.4-3.5); Glucose 236 mg/dL (70-99); Magnesium 1.6 mg/dL (1.6-2.6); Osmolality,Calculated 276 (280-300); Potassium 3.7 mEq/L (3.5-4.5); Sodium 129 mEq/L (136-145); Total Protein 5.1 g/dL (6.0-8.3); eGFR For African Americans > 60 (> 60); eGFR For Non-African Americans > 60 (> 60)
[2016-10-21 05:21] LABS: Albumin 1.5 g/dL (3.5-5.0); Bilirubin,Direct 11.2 mg/dL (0.0-0.5); Bilirubin,Total 14.9 mg/dL (0.2-1.2)
[2016-10-21] MEDS: *HR* Heparin 5,000 UNIT/ML VIAL SQ SCH (05:32)
[2016-10-21] MEDS: *HR* HYDROmorphone (PF) 1 MG/ML SYRINGE IVP PRN (08:04)
[2016-10-21] MEDS ORDERED: *HR* OxyCODONE/APAP 5/325 TABLET PO PRN (10:53)
--- NOTE | 2016-10-21 10:59 | Gastroenterology Progress Note ---
<Rai Urena - Last Filed: 10/21/16 10:57> Date of Encounter: 10/21/16 Time of Encounter: 10:05 - Assessment and plan (1) Obstructive jaundice Current Visit: Yes Status: Acute Assessment and plan: CT A/P with prominent dilation of the CBD proximally to 13 mm with abrupt narrowing of the mid CBD. Pancreatic duct stump dilated to 7 mm. Heterogeneity at the pancreatic head with parenchymal calcifications, underlying pancreatic mass cannot be excluded. MRI with suspected pancreatic head mass measuring 2 x 1.5 cm causing biliary and pancreatic ductal obstruction. CEA normal at 3.6, CA 19-9 elevated at 476 . EUS with pancreatic mass-biopsied. ERCP localized biliary stricture, biliary sphincterotomy, temporary stent placed in CBD. Concern for cancer, may need to repeat EUS as outpatient. Ok to discharge. (2) COPD (chronic obstructive pulmonary disease) Current Visit: Yes Status: Chronic Assessment and plan: Management per primary team. Qualifiers: COPD type: unspecified COPD Qualified Code(s): J44.9 - Chronic obstructive pulmonary disease, unspecified - Time Spent With Patient Total time spent is greater than 50% in coordination of care (as documented) at patient's floor/unit and/or counseling patient: - Subjective Interval history: The patient sitting on side of bed. He is very hard of hearing. He denies abdominal pain, nausea, or vomiting. - Constitutional Vitals: Temp Pulse Resp BP Pulse Ox 97.9 F 76 14 159/71 96 10/21/16 07:22 10/21/16 07:22 10/21/16 07:22 10/21/16 07:22 10/21/16 08:07 General appearance: Present: cooperative, A&O X 3, no acute distress, answers questions appropriately - Head Head exam: Present: atraumatic, normocephalic - Eye Eye exam: Present: scleral icterus. Absent: normal appearance - ENT ENT exam: Present: mucous membranes moist - Neck Neck exam general surgery: Present: normal inspection, trachea midline - Respiratory Respiratory exam: Present: decreased breath sounds, CTAB - Cardiovascular Cardiovascular exam: Present: RRR, +S1, +S2 - GI/Abdominal GI/Abdominal exam: Present: soft, no peritoneal signs. Absent: distended, firm , guarding, tenderness - Rectal Rectal exam: Present: deferred - Extremities Exam Extremities exam: Present: pedal edema, warm - Neurological Exam Neurological exam: Present: no focal deficits - Psychiatric Psychiatric exam: Present: normal affect, normal mood - Skin Skin exam: Present: dry, intact, normal color, warm Results - Labs CBC & Chem 7: 10/21/16 04:35 10/21/16 04:35 Labs: Last Result Calcium 8.1 mg/dL (8.6-10.8) L 10/21/16 04:35 Troponin I 0.00 ng/mL (0-0.03) 10/18/16 19:01 Entire Visit Hgb 9.8 g/dL (12.9-16.9) L 10/21/16 04:35 Hct 28.3 % (37.5-50.1) L 10/21/16 04:35 PT 12.7 Seconds (9.4-12.1) H 10/18/16 19:01 Total Bilirubin 14.9 mg/dL (0.2-1.2) H 10/21/16 04:35 AST 148 Units/L (5-34) H 10/21/16 04:35 ALT 149 Units/L (0-55) H 10/21/16 04:35 Ammonia 17 mcmol/L (18-72) L 10/18/16 19:01 Amylase 83 Units/L (25-125) 10/18/16 19:01 Lipase 175 Units/L (8-78) H 10/18/16 19:01 Carcinoembryonic Ag 3.6 ng/mL (0-5.0) 10/19/16 09:53 CA 19-9 Antigen 476 U/mL (0-37) H 10/19/16 09:53 - ABG ABG results: PT/INR, D-dimer PT 12.7 Seconds (9.4-12.1) H 10/18/16 19:01 - Impressions Impressions Cath/Invasive Procedure 10/20/16 15:12 IMPRESSION: Fluoroscopy provided for ERCP procedure. Please see the intraoperative note for complete details. D/ / Jake Heaton MD / Jake Heaton MD Interpreting Provider: Jake Heaton MD Consult Discharge Plan - Plan Referrals: [facility] [Outside] - 10/30/16 10:30 am <Jose Rual Jaffe - Last Filed: 10/21/16 12:18> Time of Encounter: 11:30 - Time Spent With Patient Total time spent is greater than 50% in coordination of care (as documented) at patient's floor/unit and/or counseling patient: - Constitutional Vitals: Temp Pulse Resp BP Pulse Ox 98.0 F 98 18 161/71 96 10/21/16 11:42 10/21/16 11:42 10/21/16 11:42 10/21/16 11:42 10/21/16 11:42 Results - Labs CBC & Chem 7: 10/21/16 04:35 10/21/16 04:35 Labs: Last Result Calcium 8.1 mg/dL (8.6-10.8) L 10/21/16 04:35 Troponin I 0.00 ng/mL (0-0.03) 10/18/16 19:01 Entire Visit Hgb 9.8 g/dL (12.9-16.9) L 10/21/16 04:35 Hct 28.3 % (37.5-50.1) L 10/21/16 04:35 PT 12.7 Seconds (9.4-12.1) H 10/18/16 19:01 Total Bilirubin 14.9 mg/dL (0.2-1.2) H 10/21/16 04:35 AST 148 Units/L (5-34) H 10/21/16 04:35 ALT 149 Units/L (0-55) H 10/21/16 04:35 Ammonia 17 mcmol/L (18-72) L 10/18/16 19:01 Amylase 83 Units/L (25-125) 10/18/16 19:01 Lipase 175 Units/L (8-78) H 10/18/16 19:01 Carcinoembryonic Ag 3.6 ng/mL (0-5.0) 10/19/16 09:53 CA 19-9 Antigen 476 U/mL (0-37) H 10/19/16 09:53 - ABG ABG results: PT/INR, D-dimer PT 12.7 Seconds (9.4-12.1) H 10/18/16 19:01 - Impressions Impressions Cath/Invasive Procedure 10/20/16 15:12 IMPRESSION: Fluoroscopy provided for ERCP procedure. Please see the intraoperative note for complete details. D/ / Jake Heaton MD / Jake Heaton MD Interpreting Provider: Jake Heaton MD - Attending Attestation I examined this patient and my medical decision-making was reviewed with the PROVIDER NETWORK MGR/PA/Advanced Practice Nurse/Resident Physician. I agree with the documented findings, disposition and treatment plan as described except to the extent set forth below.
[2016-10-21] MEDS ORDERED: Insulin LISPRO 300 UNITS/3 ML VIAL SQ SCH ×2 (11:30→21:00)
[2016-10-21 11:48] VITALS: BP 161/71
--- NOTE | 2016-10-21 13:26 | Discharge Summary ---
Date of Encounter: 10/21/16 Time of Encounter: 13:24 - Discharge Diagnosis (1) Obstructive jaundice Priority: Primary Status: Acute Comments: From biliary stricture status post biliary sphincterotomy and temporary stent in CBD (2) Transaminitis Priority: Secondary Status: Acute (3) COPD (chronic obstructive pulmonary disease) Priority: Secondary Status: Chronic Qualifiers: COPD type: unspecified COPD Qualified Code(s): J44.9 - Chronic obstructive pulmonary disease, unspecified (4) Diabetes mellitus Priority: Secondary Status: Chronic Qualifiers: Diabetes mellitus type: type 2 Diabetes mellitus complication status: with unspecified complications 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 - Discharge Medications Prescriptions: OxyCODONE/APAP 5/325 [Percocet 5/325 MG] 1 each PO Q6HR PRN #14 tablet PRN Reason: Pain Home Medications: Aspirin 81 mg PO DAILY 10/19/16 [History] Atorvastatin Calcium [Lipitor] 20 mg PO DAILY 10/19/16 [History] Cholecalciferol (Vitamin D3) [Vitamin D3] 2,000 unit PO DAILY 10/19/16 [History] Insulin Glargine [Lantus] 25 unit SQ DAILY 10/19/16 [History] Lisinopril [Zestril] 5 mg PO DAILY 10/19/16 [History] Loperamide HCl [Imodium A-D] 2 mg PO BID PRN 10/19/16 [History] OxyCODONE/APAP 5/325 [Percocet 5/325 MG] 1 each PO Q6HR PRN #14 tablet 10/21/16 [Rx] Allergies/Adverse Reactions: Allergies No Known Allergies Allergy (Verified 10/19/16 10:16) Procedures/tests Complete & Pending: Procedures Performed prior 72 hours Category Date Time Status MR abdomen wo con [MR] Stat MRI 10/19/16 01:58 Completed ECG 12 lead ECG [ECG] Routine Y 10/18/16 13:24 Completed Date of admission: 10/19/16 00:12 Primary care physician: PCP PA Consults: 10/19/16 01:37 Consult to Plastics Technician [CONS] Routine Reason for Consult: potential home health. PA patient. Lives at home. POA form 10/19/16 02:00 Consult to Gastroenterology [CONS] Routine Consulting Provider: Donald Bernstein Reason for Consult: Obstructive Jaundice Call Completed: No Discharging clinician: Gina Villegas Anticipated date of discharge: 10/21/16 - Patient Status Disposition: Home, Self-Care Condition: Good Functional capacity at discharge: independent ambulation Overall status at discharge: patient is progressing back to baseline - Discharge Instructions Follow Up With: [facility] [Outside] - 10/30/16 10:30 am Forms: Work/School Release Additional Instructions: With GI in 1-2 weeks - Diet and Activity Activity: increase activity as tolerated Diet: diabetic diet, low fat, low cholesterol, low salt diet Hospital course: Mr. Thurston is a 71 year old male with history of COPD was admitted here with abdominal pain and multiple electrolyte abnormalities. CT scan of the abdomen had shown possible biliary obstruction and mass in the pancreatic head. GI was consulted. Patient underwent upper GI endoscopy and ERCP with endoscopic ultrasound yesterday. Patient was found to have biliary stricture and underwent sphincterotomy and biliary stent placement. Pancreatic mass was also biopsied. Pathology is currently pending. Patient is feeling much better today and this is tolerating oral diet well. He is stable for discharge from medical and GI standpoint. He will follow up with gastroenterology for further management and for follow-up on results of his biopsy. - Time Spent with Patient Total time spent providing and/or coordinating discharge services: Less than 30 minutes (25 min) - Constitutional Vitals: Temp Pulse Resp BP Pulse Ox 98.0 F 98 18 161/71 96 10/21/16 11:42 10/21/16 11:42 10/21/16 11:42 10/21/16 11:42 10/21/16 11:42 General appearance: Present: cooperative, mild distress, A&O X 3, answers questions appropriately - Eye Eye exam: Present: scleral icterus - Neck Neck exam general surgery: Present: supple, trachea midline. Absent: lymphadenopathy - Respiratory Respiratory exam: Present: CTAB. Absent: accessory muscle use, rales, rhonchi, wheezes - Cardiovascular Cardiovascular exam: Present: RRR, +S1, +S2. Absent: diastolic murmur, gallop, rubs, systolic murmur - GI/Abdominal GI/Abdominal exam: Present: normal bowel sounds, soft, no peritoneal signs. Absent: distended, tenderness - Extremities Exam Extremities exam: Present: warm, radial pulses palpable and symetrical. Absent : calf tenderness, cyanotic, pedal edema - Neurological Exam Neurological exam: Present: alert, oriented X3, no focal deficits. Absent: facial droop, speech deficit - Skin Additional comments: Jaundice - Attending Attestation This document has been at least partially created by [employer] recognition technology by Dr. Villegas. Errors in grammar, wording or other phrases may exist. If errors are found after the documentation is signed, they will be addressed individually in the addendum section of this document when appropriate.
== END 2016-10-21 14:19 | disposition home or self-care (01) | DRG 445 ==
LOC: EMEROO 18:37 → SUATTDRO 10-19 00:12 → 3ANU 10-19 00:12
PROVIDERS: ADMIT Internal Medicine; ATTEND Internal Medicine
PROC: ENDOEUS (2016-10-20 12:00)

== ENCOUNTER 2016-12-09 20:00 | Inpatient (IN) ==
[2016-12-09] MEDS ORDERED: 0.9 % Sodium Chloride 1,000 ML IVC ONE ×2 (20:13→21:03)
--- NOTE | 2016-12-09 20:28 | Emergency Department Note ---
Disposition Clinical Impression: UTI (urinary tract infection) Qualifiers: Urinary tract infection type: acute cystitis Hematuria presence: without hematuria Qualified Code(s): N30.00 - Acute cystitis without hematuria Sepsis Qualifiers: Sepsis type: sepsis due to unspecified organism Qualified Code(s): A41.9 - Sepsis, unspecified organism Disposition: Admitted As Inpatient Condition: Fair Fever HPI - General Chief Complaint: ED General Medical Stated Complaint: weakness, fever Time Seen by Provider: 12/09/16 20:03 Source: patient, family, EMS Limitations: no limitations, language barrier Nursing Notes Reviewed: Yes Vital Signs Reviewed: Yes - History of Present Illness HPI Narrative: 71-year-old male presents to the emergency department with a chief complaint of generalized weakness and fever. On November 24 he had a Whipple procedure due to pancreatic cancer. He has a history of COPD but is otherwise well. He had a Brewster catheter that was in place since the surgery and saw his surgeon today where the catheter was removed. They report hematuria for the last few days while the Brewster catheter was in place. They state earlier today at his appointment he was completely well and doing great. They received the call tonight as stated he was so weak he could barely get out of bed. Patient states he feels very rundown and warm. He has had no nausea or vomiting. He has had a dry cough but no production. He denies any dysuria at this time. He denies any new abdominal pain. Denies any numbness or weakness unilaterally. Denies any change in his voice, headache or change in vision. - Related Data Home Medications Medication Instructions Recorded Confirmed Aspirin 81 mg PO DAILY 10/19/16 10/19/16 Atorvastatin Calcium [Lipitor] 20 mg PO DAILY 10/19/16 10/19/16 Cholecalciferol (Vitamin D3) 2,000 unit PO DAILY 10/19/16 10/19/16 [Vitamin D3] Insulin Glargine [Lantus] 25 unit SQ DAILY 10/19/16 10/19/16 Lisinopril [Zestril] 5 mg PO DAILY 10/19/16 10/19/16 Loperamide HCl [Imodium A-D] 2 mg PO BID PRN 10/19/16 10/19/16 Previous Rx's Medication Instructions Recorded OxyCODONE/APAP 5/325 [Percocet 1 each PO Q6HR PRN #14 tablet 10/21/16 5/325 MG] Albuterol Sulfate [Albuterol 1 - 2 puff IH Q6HR PRN #1 10/25/16 Inhaler] hfa.aer.ad levoFLOXacin [Levaquin] 500 mg PO DAILY 7 Days 10/25/16 predniSONE [PredniSONE] 40 mg PO DAILY 5 Days 10/25/16 Allergies Allergy/AdvReac Type Severity Reaction Status Date / Time No Known Allergies Allergy Verified 10/19/16 10:16 All systems ED: reviewed and negative except as stated. Constitutional: Reports: fever, chills Cardiovascular: Denies: chest pain Respiratory: Reports: cough. Denies: dyspnea Gastrointestinal: Denies: abdominal pain, nausea, vomiting, hematochezia Genitourinary: Reports: hematuria. Denies: urgency, dysuria Musculoskeletal: Denies: back pain Integumentary: Denies: rash Neurological: Denies: headache, weakness, numbness Endocrine: Reports: fatigue Fever PMH - Past Medical History Medical history: Reports: COPD, diabetes, hyperlipidemia, hypertension, liver disease Psychiatric history: Reports: no psych history - Social History Smoking Status: Current every day smoker Alcohol use: Reports: none Drug use: Reports: none Physical Exam General: Patient appears chronically ill but is awake, alert and oriented 3 Cardiovascular: Tachycardic but regular S1, S2. No murmurs, rubs or gallops. Respiratory: Mild coarse breath sounds bilaterally but no wheezing. No coughing or respiratory distress Abdomen: Abdomen is soft without any guarding, rebound or rigidity. He does have some right upper quadrant discomfort with palpation without any palpable organomegaly. He has a large midline laparotomy incision that is well-healed without any erythema, drainage or discharge. Eyes: Conjunctiva clear without any scleral icterus HENT: Mucous membranes appear somewhat dry but there are no abnormal oral mucosal lesions Neuro: Cranial nerves intact. No motor or sensory deficit. Musculoskeletal: No joint tenderness or swelling Skin: Skin feels warm without any diaphoresis. No abnormal lesions. Psych: Appropriate - General Limitations: no limitations, language barrier General appearance: alert Course Course Narrative: Presents with generalized fevers and malaise at home. He was initially tachycardic but not hypotensive. Sepsis order set was ordered. Labs reveal a white count of 31.7 with a lactate of 2.1. After 2 L of fluids this did decrease to 1.7. He had a mild elevation in his alkaline phosphatase as well as his bilirubin. His chest x-ray showed no evidence of infection or abnormality. His blood cultures are pending. CT scan of the abdomen shows some postsurgical changes but no evidence of abscess or infection. His urinalysis showed nitrite positive, leukocyte esterase positive with white blood cells and I feel this is the source of the infection. He was initially started on broad-spectrum antibiotics when the source was not known, vancomycin and Zosyn. This can be more directed towards therapy on the floor. Heart rate into the 90s after 2 L of fluid and I feel this is adequate hydration. Blood pressure stable. Discussed with the on-call hospitalist, Dr. Farnsworth sets for admission, patient will be admitted to the stepdown unit. Vital Signs Temperature 99.0 F 12/09/16 20:07 Pulse Rate 124 12/09/16 20:07 Respiratory Rate 22 12/09/16 20:07 Blood Pressure 114/57 12/09/16 20:07 O2 Sat by Pulse Oximetry 96 12/09/16 20:07 Temperature 99.1 F 12/09/16 22:48 Pulse Rate 94 12/09/16 22:48 Respiratory Rate 18 12/09/16 22:48 Blood Pressure 108/52 12/09/16 22:48 O2 Sat by Pulse Oximetry 98 12/09/16 22:48 Oxygen Delivery Oxygen Delivery Room Air Fever - Lab Data Result diagrams: 12/09/16 20:27 12/09/16 20:27 Lab Results 12/09/16 12/09/16 12/09/16 Range/Units 20:27 20:27 20:27 WBC 31.7 H* (4.3-11.1) K/mcL RBC 3.71 L (4.19-5.50) M/mcL Hgb 11.0 L (12.9-16.9) g/dL Hct 33.3 L (37.5-50.1) % MCV 89.8 (83.0-100.0) fL MCH 29.6 (28.0-33.3) pg MCHC 33.0 (31.6-35.5) g/dL RDW 13.3 (11.5-14.5) % Plt Count 402 H (140-400) K/mcL MPV 8.9 L (9.4-12.4) fL Seg Neutrophils % 90.0 % Band Neutrophils % 6.0 H (0-4) % Lymphocytes % 2.0 % Monocytes % 2.0 % Neutrophils # 30.4 H (1.6-8.9) K/mcL Lymphocytes # 0.6 (0.6-4.6) K/mcL Monocytes # 0.6 (0.0-1.3) K/mcL Platelet Estimate Normal (Normal) Sodium 136 (136-145) mEq/L Potassium 3.9 (3.5-4.5) mEq/L Chloride 107 (98-109) mEq/L Carbon Dioxide 20 (19-29) mEq/L BUN 12 (8-26) mg/dL Creatinine 0.95 (0.72-1.25) mg/dL Est GFR ( Amer) > 60 (> 60) Est GFR (Non-Af Amer) > 60 (> 60) BUN/Creatinine Ratio 13 (6-26) Glucose 118 H (70-99) mg/dL Calculated Osmolality 283 (280-300) Lactic Acid 2.1 (0.5-2.2) mmol/L Calcium 7.7 L (8.6-10.8) mg/dL Total Bilirubin 1.1 (0.2-1.2) mg/dL Direct Bilirubin 0.8 H (0.0-0.5) mg/dL Indirect Bilirubin 0.3 (0.0-1.2) mg/dL AST 38 H (5-34) Units/L ALT 27 (0-55) Units/L Alkaline Phosphatase 144 H (38-126) Units/L Troponin I (0-0.03) ng/mL Serum Total Protein 5.5 L (6.0-8.3) g/dL Albumin 2.3 L (3.5-5.0) g/dL Globulin 3.2 (2.4-3.5) g/dL Albumin/Globulin Ratio 0.7 L (1.1-2.2) Lipase (8-78) Units/L Urine Color (Yellow) Urine Clarity (Clear) Urine pH (5.0-8.0) pH Units Ur Specific [place] (1.010-1.025) Urine Protein (Neg-Trace) mg/dL Urine Glucose (UA) (Normal) mg/dL Urine Ketones (Negative) mg/dL Urine Blood (Negative) Urine Nitrite (Negative) Urine Bilirubin (Negative) Urine Urobilinogen (Normal) mg/dL Ur Leukocyte Esterase (Negative) Urine Microscopic RBC (0-3) per hpf Urine Microscopic WBC (0-3) per hpf Ur Squamous Epith Cells (None-Few) per lpf Urine Bacteria (None-Few) per hpf Hyaline Casts (None-Few) per lpf Ur Culture Indicated? (NO) 12/09/16 12/09/16 12/09/16 Range/Units 20:27 20:27 21:51 WBC (4.3-11.1) K/mcL RBC (4.19-5.50) M/mcL Hgb (12.9-16.9) g/dL Hct (37.5-50.1) % MCV (83.0-100.0) fL MCH (28.0-33.3) pg MCHC (31.6-35.5) g/dL RDW (11.5-14.5) % Plt Count (140-400) K/mcL MPV (9.4-12.4) fL Seg Neutrophils % % Band Neutrophils % (0-4) % Lymphocytes % % Monocytes % % Neutrophils # (1.6-8.9) K/mcL Lymphocytes # (0.6-4.6) K/mcL Monocytes # (0.0-1.3) K/mcL Platelet Estimate (Normal) Sodium (136-145) mEq/L Potassium (3.5-4.5) mEq/L Chloride (98-109) mEq/L Carbon Dioxide (19-29) mEq/L BUN (8-26) mg/dL Creatinine (0.72-1.25) mg/dL Est GFR ( Amer) (> 60) Est GFR (Non-Af Amer) (> 60) BUN/Creatinine Ratio (6-26) Glucose (70-99) mg/dL Calculated Osmolality (280-300) Lactic Acid 1.7 (0.5-2.2) mmol/L Calcium (8.6-10.8) mg/dL Total Bilirubin (0.2-1.2) mg/dL Direct Bilirubin (0.0-0.5) mg/dL Indirect Bilirubin (0.0-1.2) mg/dL AST (5-34) Units/L ALT (0-55) Units/L Alkaline Phosphatase (38-126) Units/L Troponin I 0.02 (0-0.03) ng/mL Serum Total Protein (6.0-8.3) g/dL Albumin (3.5-5.0) g/dL Globulin (2.4-3.5) g/dL Albumin/Globulin Ratio (1.1-2.2) Lipase < 4 L (8-78) Units/L Urine Color (Yellow) Urine Clarity (Clear) Urine pH (5.0-8.0) pH Units Ur Specific [place] (1.010-1.025) Urine Protein (Neg-Trace) mg/dL Urine Glucose (UA) (Normal) mg/dL Urine Ketones (Negative) mg/dL Urine Blood (Negative) Urine Nitrite (Negative) Urine Bilirubin (Negative) Urine Urobilinogen (Normal) mg/dL Ur Leukocyte Esterase (Negative) Urine Microscopic RBC (0-3) per hpf Urine Microscopic WBC (0-3) per hpf Ur Squamous Epith Cells (None-Few) per lpf Urine Bacteria (None-Few) per hpf Hyaline Casts (None-Few) per lpf Ur Culture Indicated? (NO) 12/09/16 Range/Units 22:21 WBC (4.3-11.1) K/mcL RBC (4.19-5.50) M/mcL Hgb (12.9-16.9) g/dL Hct (37.5-50.1) % MCV (83.0-100.0) fL MCH (28.0-33.3) pg MCHC (31.6-35.5) g/dL RDW (11.5-14.5) % Plt Count (140-400) K/mcL MPV (9.4-12.4) fL Seg Neutrophils % % Band Neutrophils % (0-4) % Lymphocytes % % Monocytes % % Neutrophils # (1.6-8.9) K/mcL Lymphocytes # (0.6-4.6) K/mcL Monocytes # (0.0-1.3) K/mcL Platelet Estimate (Normal) Sodium (136-145) mEq/L Potassium (3.5-4.5) mEq/L Chloride (98-109) mEq/L Carbon Dioxide (19-29) mEq/L BUN (8-26) mg/dL Creatinine (0.72-1.25) mg/dL Est GFR ( Amer) (> 60) Est GFR (Non-Af Amer) (> 60) BUN/Creatinine Ratio (6-26) Glucose (70-99) mg/dL Calculated Osmolality (280-300) Lactic Acid (0.5-2.2) mmol/L Calcium (8.6-10.8) mg/dL Total Bilirubin (0.2-1.2) mg/dL Direct Bilirubin (0.0-0.5) mg/dL Indirect Bilirubin (0.0-1.2) mg/dL AST (5-34) Units/L ALT (0-55) Units/L Alkaline Phosphatase (38-126) Units/L Troponin I (0-0.03) ng/mL Serum Total Protein (6.0-8.3) g/dL Albumin (3.5-5.0) g/dL Globulin (2.4-3.5) g/dL Albumin/Globulin Ratio (1.1-2.2) Lipase (8-78) Units/L Urine Color Yellow (Yellow) Urine Clarity Clear (Clear) Urine pH 6.0 (5.0-8.0) pH Units Ur Specific [place] 1.027 H (1.010-1.025) Urine Protein 30 H (Neg-Trace) mg/dL Urine Glucose (UA) 500 H (Normal) mg/dL Urine Ketones Negative (Negative) mg/dL Urine Blood Trace H (Negative) Urine Nitrite Positive A (Negative) Urine Bilirubin Negative (Negative) Urine Urobilinogen Normal (Normal) mg/dL Ur Leukocyte Esterase Small H (Negative) Urine Microscopic RBC 0-3 (0-3) per hpf Urine Microscopic WBC 15-30 H (0-3) per hpf Ur Squamous Epith Cells Moderate H (None-Few) per lpf Urine Bacteria Moderate H (None-Few) per hpf Hyaline Casts None Seen (None-Few) per lpf Ur Culture Indicated? YES A (NO) Attestation Statement - Attestation Attestation: I, Francisco Dodson, examined this patient and my medical decision-making was reviewed with the ASSISTANT CASINO SHIFT MANAGER/PA/Advanced Practice Nurse/Resident Physician. I agree with the documented findings, disposition and treatment plan as described except to the extent set forth below. 71-year-old male presents with concerns of weakness, fever. Patient recently had a Whipple procedure performed during and has been improving steadily. Patient had a Brewster catheter in place for multiple days which was removed yesterday. Patient reports mild pain to the suprapubic area. He had a fever upon arrival to the emergency department today. He denies changes in his medications. He is tachycardic in the emergency department. Patient is likely septic and he was started on sepsis protocol with vancomycin and Zosyn for antibiotics.
[2016-12-09 20:38] LABS: Hematocrit 33.3 % (37.5-50.1); Mean Corpuscular Hemoglobin 29.6 pg (28.0-33.3); Mean Corpuscular Volume 89.8 fL (83.0-100.0); Mean Platelet Volume 8.9 fL (9.4-12.4); Platelet Count 402 K/mcL (140-400); Red Blood Count 3.71 M/mcL (4.19-5.50); Red Cell Distribution Width 13.3 % (11.5-14.5)
[2016-12-09 20:55] LABS: Alanine Aminotransferase 27 Units/L (0-55); Albumin 2.3 g/dL (3.5-5.0); Albumin/Globulin Ratio 0.7 (1.1-2.2); Alkaline Phosphatase 144 Units/L (38-126); Aspartate Amino Transferase 38 Units/L (5-34); BUN/Creatinine Ratio 13 (6-26); Bilirubin,Direct 0.8 mg/dL (0.0-0.5); Bilirubin,Indirect 0.3 mg/dL (0.0-1.2); Bilirubin,Total 1.1 mg/dL (0.2-1.2); Blood Urea Nitrogen 12 mg/dL (8-26); Calcium 7.7 mg/dL (8.6-10.8); Carbon Dioxide 20 mEq/L (19-29); Chloride 107 mEq/L (98-109); Globulin 3.2 g/dL (2.4-3.5); Glucose 118 mg/dL (70-99); Osmolality,Calculated 283 (280-300); Potassium 3.9 mEq/L (3.5-4.5); Sodium 136 mEq/L (136-145); Total Protein 5.5 g/dL (6.0-8.3); eGFR For African Americans > 60 (> 60); eGFR For Non-African Americans > 60 (> 60)
[2016-12-09] MEDS ORDERED: Piperacillin/Tazobactam 3.375 GM in D5% in Water (Mini-Bag+) 100 ML IVPB ONE (21:03)
[2016-12-09 21:05] LABS: Lymphocytes # 0.6 K/mcL (0.6-4.6); Monocytes # 0.6 K/mcL (0.0-1.3); Neutrophils # 30.4 K/mcL (1.6-8.9)
[2016-12-09 21:06] LABS: Platelet Estimate Normal (Normal)
[2016-12-09] MEDS ORDERED: Vancomycin 1,250 MG in D5% in Water 250 ML IVPB ONE (22:00)
[2016-12-09 22:29] LABS: Bilirubin,Urine Negative (Negative); Blood,Urine Trace (Negative); Clarity,Urine Clear (Clear); Color,Urine Yellow (Yellow); Glucose,Urine (UA) 500 mg/dL (Normal); Ketones,Urine Negative (Negative); Leukocyte Esterase,Urine Small (Negative); Nitrite,Urine Positive (Negative); Protein,Urine 30 mg/dL (Neg-Trace); Specific Gravity,Urine 1.027 (1.010-1.025); Urobilinogen,Urine Normal (Normal)
[2016-12-09 22:31] LABS: Bacteria,Urine Moderate per hpf (None-Few); Hyaline Casts,Urine None Seen per lpf (None-Few); RBC,Urine 0-3 per hpf (0-3); Squamous Epithelial Cell,Urine Moderate per lpf (None-Few); WBC,Urine 15-30 per hpf (0-3)
[2016-12-09] MEDS ORDERED: Vancomycin 1,000 MG in D5% in Water 250 ML IVPB SCH (23:45)
[2016-12-09] MEDS ORDERED: Acetaminophen 325 MG TABLET PO PRN (23:49)
[2016-12-09] MEDS ORDERED: Ondansetron 4 MG/2 ML VIAL IVP PRN (23:49)
[2016-12-09] MEDS ORDERED: *HR* OxyCODONE Immed Rel 5 MG TABLET PO PRN (23:49)
[2016-12-09] MEDS ORDERED: *HR* Morphine 2 MG/ML SYRINGE IVP PRN (23:49)
[2016-12-09] MEDS ORDERED: Naloxone 0.4 MG/ML INJ IVP PRN (23:49)
[2016-12-10] MEDS: 0.9 % Sodium Chloride 1,000 ML IVC SCH ×2 (01:35→11:21)
[2016-12-10] MEDS: *HR* Heparin 5,000 UNIT/ML VIAL SQ SCH ×3 (01:35→16:20)
[2016-12-10 04:21] LABS: Hematocrit 29.3 % (37.5-50.1); Hemoglobin 9.7 g/dL (12.9-16.9); Lymphocytes # 1.9 K/mcL (0.6-4.6); Mean Corpuscular HGB Conc 33.1 g/dL (31.6-35.5); Mean Corpuscular Hemoglobin 29.8 pg (28.0-33.3); Mean Corpuscular Volume 89.9 fL (83.0-100.0); Mean Platelet Volume 9.7 fL (9.4-12.4); Platelet Count 378 K/mcL (140-400); Red Blood Count 3.26 M/mcL (4.19-5.50); Red Cell Distribution Width 13.4 % (11.5-14.5)
[2016-12-10] MEDS: Cefepime HCl 1,000 MG in D5% in Water (Mini-Bag+) 100 ML IVPB SCH ×2 (05:16→16:19)
[2016-12-10] MEDS ORDERED: D5% in Water 1,000 ML IVC PRN (05:28)
[2016-12-10] MEDS ORDERED: *HR* Dextrose 50 % in Water (Syg) 50 ML SYRINGE IVP PRN (05:28)
[2016-12-10] MEDS ORDERED: Dextrose Gel 15 GM PO PRN ×2 (05:28)
[2016-12-10 06:07] LABS: Monocytes # 0.9 K/mcL (0.0-1.3); Neutrophils # 44.4 K/mcL (1.6-8.9); Platelet Estimate Normal (Normal)
[2016-12-10 06:33] LABS: Alanine Aminotransferase 24 Units/L (0-55); Albumin/Globulin Ratio 0.8 (1.1-2.2); Alkaline Phosphatase 108 Units/L (38-126); Aspartate Amino Transferase 23 Units/L (5-34); BUN/Creatinine Ratio 16 (6-26); Blood Urea Nitrogen 12 mg/dL (8-26); Calcium 7.2 mg/dL (8.6-10.8); Carbon Dioxide 21 mEq/L (19-29); Chloride 109 mEq/L (98-109); Globulin 2.5 g/dL (2.4-3.5); Magnesium 1.5 mg/dL (1.6-2.6); Osmolality,Calculated 278 (280-300); Potassium 3.3 mEq/L (3.5-4.5); Sodium 136 mEq/L (136-145); Total Protein 4.4 g/dL (6.0-8.3); eGFR For African Americans > 60 (> 60); eGFR For Non-African Americans > 60 (> 60)
--- NOTE | 2016-12-10 06:41 | Internal Med History&Physical ---
Date of Encounter: 12/10/16 Time of Encounter: 01:45 Assessment and Plan (1) Sepsis Current visit: Yes Status: Acute Patient has fever, tachycardia, leukocytosis with possible UTI/urinary retention vs intra-abdominal source; CT abdomen shows edematous stomach and small bowel loops, likely reactive to surgery; start aggressive IV hydration; place Brewster catheter and monitor urine output closely; monitor WBC count closely ; received IV Vancomycin and Zosyn in the ER, will switch to IV Cefepime and Vancomycin for now; lactic acid WNL. F/up blood and urine cultures. High risk for complications. Qualifiers: Sepsis type: sepsis due to unspecified organism Qualified Code(s): A41.9 - Sepsis, unspecified organism (2) UTI (urinary tract infection) Current visit: Yes Status: Acute Continue IV antibiotics as above; bedside bladder scan shows 250cc urine; Qualifiers: Urinary tract infection type: acute cystitis Hematuria presence: without hematuria Qualified Code(s): N30.00 - Acute cystitis without hematuria (3) COPD (chronic obstructive pulmonary disease) Current visit: Yes Status: Chronic not in acute exacerbation; continue PRN bronchodilators and supplemental O2 as needed; Qualifiers: COPD type: emphysema Emphysema type: unspecified Qualified Code(s): J43.9 - Emphysema, unspecified (4) Tobacco abuse Current visit: Yes Status: Chronic (5) Essential (primary) hypertension Current visit: Yes Status: Chronic (6) Diabetes mellitus Current visit: Yes Status: Chronic [place] blood glucose monitoring; current blood sugars are low normal; we will check HbA1C; Qualifiers: Diabetes mellitus type: type 2 Diabetes mellitus complication status: with unspecified complications 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 Thurston is a 71 year old male with recent Whipple procedure, presents with c/ o- not feeling well and abdominal pain. Patient is extremely hard of hearing and history is obtained from ER records and review of previous records.Patient underwent Whipple procedure at [facility] about 2 weeks back and has been tolerating oral diet until earlier this evening, when he developed fever, chills, abdominal pain at the surgical site, associated with generalized weakness, malaise and nausea but no vomiting, diarrhea. Of note, he was discharged home on Brewster catheter that was removed yesterday and patient has questionable urine output. Adamantly refuses indwelling Brewster catheter at this time. Past Med Surg Social Fam HX - Past Medical History Medical history: COPD, diabetes, hyperlipidemia, hypertension Psychiatric history: no psych history - Past Surgical History Surgical History: other (Whipple procedure) - Social History Smoking Status: Current every day smoker Packs per day: 1.5 Smokeless Tobacco Status: No Alcohol use: none Drug use: none Occupational status: retired Current living situation: Home, With Family Activity Level: Independent ambulation Recent Out of Country Travel Within the Last 8 Weeks: No Exposure or Possible Exposure to Illness During Travel: No - Additional Family History Additional family history: cannot be obtained as patient is very hard of hearing ; no family at bedside; Internal Medicine - H&P: Meds Aspirin 81 mg PO DAILY 10/19/16 [History] Atorvastatin Calcium [Lipitor] 20 mg PO DAILY 10/19/16 [History] Cholecalciferol (Vitamin D3) [Vitamin D3] 2,000 unit PO DAILY 10/19/16 [History] Insulin Glargine [Lantus] 25 unit SQ DAILY 10/19/16 [History] Lisinopril [Zestril] 5 mg PO DAILY 10/19/16 [History] Loperamide HCl [Imodium A-D] 2 mg PO BID PRN 10/19/16 [History] OxyCODONE/APAP 5/325 [Percocet 5/325 MG] 1 each PO Q6HR PRN #14 tablet 10/21/16 [Rx] Albuterol Sulfate [Albuterol Inhaler] 1 - 2 puff IH Q6HR PRN #1 hfa.aer.ad 10/25 [Rx] levoFLOXacin [Levaquin] 500 mg PO DAILY 7 Days 10/25/16 [Rx] predniSONE [PredniSONE] 40 mg PO DAILY 5 Days 10/25/16 [Rx] Allergies No Known Allergies Allergy (Verified 10/19/16 10:16) All Systems PM: A 10-system review of systems was performed and is negative for pertinent findings except as documented above in the HPI. - Constitutional Constitutional: chills, fatigue, fever(s), malaise, weakness - EENT Eyes: no change in vision, no discharge, no pain, no photophobia Ears: no ear discharge, no ear pain, no tinnitus Nose, mouth and throat: no dysphagia, no nasal discharge, no neck pain, no sore throat - Cardiovascular Cardiovascular ROS IM: no chest pain, no diaphoresis, no dyspnea, no lightheadedness, no palpitations, no syncope - Respiratory Respiratory: no cough, no dyspnea, no wheezing, no excessive phlegm production - Gastrointestinal Gastrointestinal: abdominal pain - Musculoskeletal Musculoskeletal ROS IM: no numbness, no tingling - Integumentary Integumentary IM: no rash, no unusual bruising - Neurological Neurological ROS: no confusion, no convulsions, no focal weakness, no numbness, no tingling, no tremor(s) - Hematologic/Lymphatic Hematologic/Lymphatic: no easy bruising - Constitutional Vitals: Temp Pulse Resp BP Pulse Ox 99.1 F 100 12 110/54 96 12/10/16 04:33 12/10/16 04:33 12/10/16 04:33 12/10/16 04:33 12/10/16 04:33 General appearance: Present: mild distress, A&O X 3 - ENT Additional comments: very hard of hearing - Respiratory Respiratory exam: Present: CTAB. Absent: accessory muscle use, rales, rhonchi, wheezes - Cardiovascular Cardiovascular exam: Present: RRR, +S1, +S2. Absent: diastolic murmur, gallop, rubs, systolic murmur - GI/Abdominal GI/Abdominal exam: Present: normal bowel sounds, soft (midline vertical surgical incision healing well with surrounding and underlying edema/tenderness/ induration, no foul-smelling discharge), no peritoneal signs. Absent: distended , tenderness - Extremities Exam Extremities exam: Present: full ROM, warm, radial pulses palpable and symetrical. Absent: calf tenderness, cyanotic, pedal edema - Neurological Exam Neurological exam: Present: CN II-XII intact, oriented X3, no focal deficits. Absent: pronater drift, facial droop, speech deficit - Skin Skin exam: Present: dry, intact Internal Med - H&P Results - Labs CBC & Chem 7: 12/10/16 03:24 12/09/16 20:27
[2016-12-10 06:59] LABS: Albumin 1.9 g/dL (3.5-5.0)
[2016-12-10 07:00] LABS: Glucose 35 mg/dL (70-99)
[2016-12-10 07:21] LABS: Hemoglobin A1C 7.4 %
[2016-12-10] MEDS: Insulin LISPRO 300 UNITS/3 ML VIAL SQ SCH ×3 (07:29→16:21)
[2016-12-10] MEDS ORDERED: Magnesium Oxide 400 MG TABLET PO ONE (09:00)
[2016-12-10] MEDS: Vancomycin 1,000 MG in D5% in Water 250 ML IVPB SCH (11:14)
--- NOTE | 2016-12-10 11:15 | Event Note ---
<Lorenzo Jefferson - Last Filed: 12/10/16 19:02> Date of Encounter: 12/10/16 Time of Encounter: 08:40 Mr. Thurston is a 71 year old male, hard of hearing, that presented for difficulty to urinate x 2 weeks. Reported recent history 2 weeks ago of Whipple procedure for pancreatic cancer, he reports being discharged with a chun due to difficulty urinating and desired for discharge. Patient states he followed up with surgeon, Dr. Palma Coppola yesterday AM, was doing well at that time and chun was removed. He notes that afternoon at approximately 3 pm she felt weak with difficulty getting out of bed, was shaking, and unable to urinate. He states that family called EMS because he was "shaking". Upon arrival patient was found to be tachycardiac at 124, temp 99F, RR 22, BP 114/57 and O2 sat 96%. WBC 31.7->47.2->35.8. Lactic acid 2.1->1.7->1.0. UA positive for blood, nitrite , leukocyte esterase, bacteria, moderate epith cells. Patient had a CT abdomen reflective of post Whipple, some gastric distention with edematous changes, no obstruction; improving biliary dilatation and pancreatic duct dilatation; no free air, no abscess. Patient received one dose Vancomycin and Zosyn in the ED, continued on Cefepine and Vancomycin. He denies any abdominal pain, diarrhea, vomiting. Admits to nausea, burning with urination, difficulty urinating, chills/shaking, and weakness. Patient refusing chun catheter at this time. Only noting urination with bowel movements , notes history of blood in urine. No pain on palpation of abdomen, no erythema or discharge noted at midline incision. Lungs CTAB, no crackles, rales, rhochi on lung exam. No pain on palpation of chest, RRR. No acute distress, very hard of hearing. Spoke to Urology for consult, recommending increasing Flomax to 0.8mg. Spoke with Surgeon, Dr. Coppola from [facility] as family was concerned about need for transfer, discussed case with provider; we have agreed at this time patient can remain at [facility] as he is stable, we have infectious source, and WBC improved. Will consider transfer if patient's status changes. This was discussed with patient and family that is agreeable to current plan of care. Assessment and plan: 1.Catheter associated UTI: presentation and UA supportive for UTI, culture pending. Indwelling chun for 2 weeks, removed yesterday. Will continue IV antibiotics; cefepine & Vanc. Monitor patinet, vitals, CBC. Urology consulted. Increased Flomax to 0.8mg daily. Patient refusing chun catheter. 2.COPD-stable 3.HTN-may be able to back off on IVFs 4.DM-Currently on corrective scale, consider restarting home dose of 30units lantus daily. <Martin Finley - Last Filed: 12/11/16 14:05> Date of Encounter: 12/10/16 Pt was admitted earlier this AM with presumed UTI with profound leukocytosis. He has been improving during the day. Exam Alert. Comfortable Abd soft Continue current plan of care.
[2016-12-10 14:11] LABS: Mean Platelet Volume 9.6 fL (9.4-12.4); Red Cell Distribution Width 13.4 % (11.5-14.5)
[2016-12-10 14:13] LABS: Hematocrit 26.9 % (37.5-50.1); Hemoglobin 9.1 g/dL (12.9-16.9); Mean Corpuscular HGB Conc 33.8 g/dL (31.6-35.5); Mean Corpuscular Hemoglobin 30.6 pg (28.0-33.3); Mean Corpuscular Volume 90.6 fL (83.0-100.0); Platelet Count 328 K/mcL (140-400); Red Blood Count 2.97 M/mcL (4.19-5.50)
[2016-12-10 14:25] LABS: BUN/Creatinine Ratio 17 (6-26); Blood Urea Nitrogen 13 mg/dL (8-26); Carbon Dioxide 20 mEq/L (19-29); Chloride 108 mEq/L (98-109); Glucose 236 mg/dL (70-99); Osmolality,Calculated 284 (280-300); Potassium 3.9 mEq/L (3.5-4.5); Sodium 133 mEq/L (136-145); eGFR For African Americans > 60 (> 60); eGFR For Non-African Americans > 60 (> 60)
[2016-12-10 14:46] LABS: Lymphocytes # 2.9 K/mcL (0.6-4.6); Monocytes # 2.2 K/mcL (0.0-1.3); Neutrophils # 30.8 K/mcL (1.6-8.9)
[2016-12-10 14:47] LABS: Dohle Bodies Present (Not Present); Toxic Granulation Present (Not Present)
--- NOTE | 2016-12-10 18:42 | Electrocardiograph Report ---
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
[2016-12-11] MEDS: 0.9 % Sodium Chloride 1,000 ML IVC SCH (00:03)
[2016-12-11] MEDS: Insulin LISPRO 300 UNITS/3 ML VIAL SQ SCH ×5 (00:04→21:40)
[2016-12-11] MEDS: Vancomycin 1,000 MG in D5% in Water 250 ML IVPB SCH ×3 (00:05→21:40)
[2016-12-11] MEDS: *HR* Heparin 5,000 UNIT/ML VIAL SQ SCH ×4 (00:06→23:52)
[2016-12-11] MEDS: Cefepime HCl 1,000 MG in D5% in Water (Mini-Bag+) 100 ML IVPB SCH ×2 (04:02→17:23)
--- NOTE | 2016-12-11 07:15 | Urology - Consult Note ---
Date of Encounter: 12/11/16 Time of Encounter: 07:13 - Assessment and Plan (1) Urinary hesitancy Current Visit: Yes Status: Acute Assessment and plan: Recommend for patient to continue with 2 Flomax per day. Patient can follow-up with me in 2-3 weeks once discharged from hospital. (2) UTI (urinary tract infection) Current Visit: Yes Status: Acute Assessment and plan: Continue broad-spectrum antibiotic until culture results return. Qualifiers: Urinary tract infection type: acute cystitis Hematuria presence: without hematuria Qualified Code(s): N30.00 - Acute cystitis without hematuria Urology CN:HPI Consult date: 12/11/16 Reason for consult Urology: Other (urinary retention) Requesting physician: Lorenzo Jefferson History of present illness: Elias is a 71-year-old male with a history of recent Whipple procedure. Patient is admitted now secondary to likely urinary tract infection with elevated WBC. Patient had catheter removed prior to arrival to the hospital. He has been having some difficulty with voiding with post void residuals between 150-250. Patient has refused replacement of his catheter. His urine culture is presumptively positive for gram negatives. Patient states that he is also going to refuse any further blood draws. Past Med Surg Social Fam HX - Past Medical History Medical history: COPD, diabetes, hyperlipidemia, hypertension Psychiatric history: no psych history - Past Surgical History Surgical History: other (Whipple procedure) - Social History Smoking Status: Current every day smoker Packs per day: 1.5 Smokeless Tobacco Status: No Alcohol use: none Drug use: none Medications and Allergies Aspirin 81 mg PO DAILY 10/19/16 [History] Atorvastatin Calcium [Lipitor] 20 mg PO DAILY 10/19/16 [History] Cholecalciferol (Vitamin D3) [Vitamin D3] 2,000 unit PO DAILY 10/19/16 [History] Insulin Glargine [Lantus] 30 unit SQ DAILY 10/19/16 [History] Lisinopril [Zestril] 5 mg PO DAILY 10/19/16 [History] Docusate [Colace] 100 mg PO BID PRN 12/10/16 [History] Furosemide [Lasix] 20 mg PO DAILY 12/10/16 [History] Ibuprofen [Motrin] 400 mg PO DAILY PRN 12/10/16 [History] Metformin HCl [Metformin HCl ER] 1,000 mg PO DAILY 12/10/16 [History] Metoclopramide [Reglan] 10 mg PO QIDAC PRN 12/10/16 [History] Nicotine Patch [Nicoderm] 21 mg TD DAILY 12/10/16 [History] Omeprazole [PriLOSEC] 20 mg PO DAILY 12/10/16 [History] OxyCODONE/APAP 5/325 [Percocet 5/325 MG] 2 tab PO Q4H PRN 12/10/16 [History] Tamsulosin [Flomax] 0.4 mg PO DAILY 12/10/16 [History] Allergies No Known Allergies Allergy (Verified 10/19/16 10:16) Review of Systems - Constitutional no chills - EENT Nose, mouth and throat: no dizziness - Cardiovascular no chest pain - Respiratory no cough - Gastrointestinal abdominal pain - Genitourinary as per HPI Exam Initial Vital Signs Temp Pulse Resp BP Pulse Ox 99.0 F 124 22 114/57 96 12/09/16 20:07 12/09/16 20:07 12/09/16 20:07 12/09/16 20:07 12/09/16 20:07 - General physical appearance Present: well developed - Respiratory Present: normal respiratory effort - Cardiovascular Cardiovascular exam IM: RRR - Abdomen Abdomen: Present: soft Urology Results - Labs 12/10/16 13:39 12/10/16 13:39 Abnormal lab results WBC 35.8 K/mcL (4.3-11.1) H* 12/10/16 13:39 RBC 2.97 M/mcL (4.19-5.50) L 12/10/16 13:39 Hgb 9.1 g/dL (12.9-16.9) L 12/10/16 13:39 Hct 26.9 % (37.5-50.1) L 12/10/16 13:39 Neutrophils # 30.8 K/mcL (1.6-8.9) H 12/10/16 13:39 Monocytes # 2.2 K/mcL (0.0-1.3) H 12/10/16 13:39 Toxic Granulation Present (Not Present) A 12/10/16 13:39 Dohle Bodies Present (Not Present) A 12/10/16 13:39 Sodium 133 mEq/L (136-145) L 12/10/16 13:39 Glucose 236 mg/dL (70-99) H 12/10/16 13:39 POC Glucose 148 (58-89) H 12/10/16 19:32 Hemoglobin A1c 7.4 % (-5.6) H 12/10/16 03:24 Calcium 7.0 mg/dL (8.6-10.8) L 12/10/16 13:39 Magnesium 1.5 mg/dL (1.6-2.6) L 12/10/16 03:24 Direct Bilirubin 0.8 mg/dL (0.0-0.5) H 12/09/16 20:27 Serum Total Protein 4.4 g/dL (6.0-8.3) L 12/10/16 03:24 Albumin 1.9 g/dL (3.5-5.0) L 12/10/16 03:24 Albumin/Globulin Ratio 0.8 (1.1-2.2) L 12/10/16 03:24 Lipase < 4 Units/L (8-78) L 12/09/16 20:27 Ur Specific [place] 1.027 (1.010-1.025) H 12/09/16 22:21 Urine Protein 30 mg/dL (Neg-Trace) H 12/09/16 22:21 Urine Glucose (UA) 500 mg/dL (Normal) H 12/09/16 22:21 Urine Blood Trace (Negative) H 12/09/16 22:21 Urine Nitrite Positive (Negative) A 12/09/16 22:21 Ur Leukocyte Esterase Small (Negative) H 12/09/16 22:21 Urine Microscopic WBC 15-30 per hpf (0-3) H 12/09/16 22:21 Ur Squamous Epith Cells Moderate per lpf (None-Few) H 12/09/16 22:21 Urine Bacteria Moderate per hpf (None-Few) H 12/09/16 22:21 Ur Culture Indicated? YES (NO) A 12/09/16 22:21 Diabetes panel 12/10/16 Range/Units 13:39 Sodium 133 L (136-145) mEq/L Potassium 3.9 (3.5-4.5) mEq/L Chloride 108 (98-109) mEq/L Carbon Dioxide 20 (19-29) mEq/L BUN 13 (8-26) mg/dL Creatinine 0.77 (0.72-1.25) mg/dL Glucose 236 H (70-99) mg/dL Calcium 7.0 L (8.6-10.8) mg/dL Calcium panel 12/10/16 Range/Units 13:39 Calcium 7.0 L (8.6-10.8) mg/dL Pituitary panel 12/10/16 Range/Units 13:39 Sodium 133 L (136-145) mEq/L Potassium 3.9 (3.5-4.5) mEq/L Chloride 108 (98-109) mEq/L Carbon Dioxide 20 (19-29) mEq/L BUN 13 (8-26) mg/dL Creatinine 0.77 (0.72-1.25) mg/dL Glucose 236 H (70-99) mg/dL Calcium 7.0 L (8.6-10.8) mg/dL Adrenal panel 12/10/16 Range/Units 13:39 Sodium 133 L (136-145) mEq/L Potassium 3.9 (3.5-4.5) mEq/L Chloride 108 (98-109) mEq/L Carbon Dioxide 20 (19-29) mEq/L BUN 13 (8-26) mg/dL Creatinine 0.77 (0.72-1.25) mg/dL Glucose 236 H (70-99) mg/dL Calcium 7.0 L (8.6-10.8) mg/dL All other labs normal. Consult Discharge Plan - Plan [facility]errals: [facility] [Primary Care Provider[facility] -
[2016-12-11 09:17] LABS: Hematocrit 33.6 % (37.5-50.1); Hemoglobin 11.1 g/dL (12.9-16.9); Mean Corpuscular Hemoglobin 30.1 pg (28.0-33.3); Mean Corpuscular Volume 91.1 fL (83.0-100.0); Mean Platelet Volume 9.3 fL (9.4-12.4); Platelet Count 319 K/mcL (140-400); Red Blood Count 3.69 M/mcL (4.19-5.50); Red Cell Distribution Width 13.3 % (11.5-14.5)
[2016-12-11 10:08] LABS: Basophils # 0.5 K/mcL (0.0-0.2); Eosinophils # 0.5 K/mcL (0.0-0.6); Neutrophils # 21.9 K/mcL (1.6-8.9)
[2016-12-11 10:09] LABS: Platelet Estimate Normal (Normal)
--- NOTE | 2016-12-11 10:18 | Internal Med Progress Note ---
<Lorenzo Jefferson - Last Filed: 12/11/16 14:40> Date of Encounter: 12/11/16 Time of Encounter: 09:00 - Assessment and plan (1) Catheter-associated urinary tract infection Current Visit: Yes Status: Acute Assessment and plan: Present on admission. Two week history of indwelling chun for urinary hesitancy s/p Whipple procedure at [facility]. Gram negative bacteria on prelim Urine Culture, awaiting final culture to adjust medication. Will continue IV antibiotics; cefepine & Vanc. Monitor patient, vitals, CBC. Urology consulted recommended increasing Flomax from 0.4mg to 0.8mg daily. Bladder scan showing 150-250cc urine retained. Patient refused chun catheter, though urinary better today after flomax. Plan to restart Reglan and colace on discharge, currently holding inpatient to ensure loose stools are not related to infectious source. Qualifiers: Indwelling urinary catheter type: indwelling urethral catheter Encounter type: initial encounter Qualified Code(s): T83.511A - Infection and inflammatory reaction due to indwelling urethral catheter, initial encounter; N39.0 - Urinary tract infection, site not specified (2) Urinary hesitancy Current Visit: Yes Status: Acute Assessment and plan: See plan above. (3) COPD (chronic obstructive pulmonary disease) Current Visit: Yes Status: Chronic Assessment and plan: No acure exacerbation. Stable on room air. Qualifiers: COPD type: emphysema Emphysema type: unspecified Qualified Code(s): J43.9 - Emphysema, unspecified (4) Diabetes mellitus Current Visit: Yes Status: Chronic Assessment and plan: POC BG ranging from 89-296. Most recent BG 125. Patient on Lantus 30units daily at home. Currently on Corrective SSI as concern of BMP glucose 35 yesterday. Consider restarting home insulin dose. Qualifiers: Diabetes mellitus type: type 2 Diabetes mellitus complication status: with unspecified complications Diabetes mellitus long-term insulin use: without terminal worker use Qualified Code(s): E11.8 - Type 2 diabetes mellitus with unspecified complications (5) Essential (primary) hypertension Current Visit: Yes Status: Chronic Assessment and plan: Stable currently, last BP 155/62. (6) Tobacco abuse Current Visit: Yes Status: Chronic Assessment and plan: Spouse said patient on nicotine patch at home, will offer as prn, consider making this scheduled if patient stays longer. (7) Hypoalbuminemia Current Visit: No Status: Acute Assessment and plan: Protein malnutrition, possible dilution from IVFs. Cont to Monitor. (8) Hypomagnesemia Current Visit: No Status: Acute Assessment and plan: Mg 1.5>1.1 Replacing today (9) Hyponatremia Current Visit: No Status: Acute Assessment and plan: Hx of hyponatremia, Na was 129 on 10/21/16 consider mild SIADH as Na appears to decline with hydration. IVFs d/c. Continue to monitor - Time Spent With Patient 25 - 35 minutes - Subjective Interval history: Patient states he is urinating every 15mins, without difficulty. He states he feels better and is ready to go home, present in the afternoon. I discussed care plan with patient and spouse who agrees to continue course and see about possible discharge tomorrow pending MA labs. - Constitutional Vitals: Temp Pulse Resp BP Pulse Ox 98.0 F 87 14 161/106 95 12/11/16 06:37 12/11/16 06:37 12/11/16 06:37 12/11/16 06:37 12/11/16 08:00 General appearance: Present: mild distress, A&O X 3, no acute distress, answers questions appropriately - Head Head exam: Present: atraumatic, normocephalic - Eye Eye exam: Present: EOMI - ENT ENT exam: Present: mucous membranes dry - Neck Neck exam general surgery: Present: full ROM - Respiratory Respiratory exam: Present: decreased breath sounds, CTAB - Cardiovascular Cardiovascular exam: Present: RRR - GI/Abdominal GI/Abdominal exam: Present: soft. Absent: firm, guarding, tenderness Additional comments: midline incision - Extremities Exam Extremities exam: Present: warm. Absent: pedal edema, tenderness - Neurological Exam Neurological exam: Present: alert, no focal deficits - Psychiatric Psychiatric exam: Present: agitated - Skin Skin exam: Present: dry, normal color, warm. Absent: cyanosis, rash Internal Medicine: Result - Labs CBC & Chem 7: 12/11/16 09:07 12/11/16 09:07 Labs: Short CBC 12/10/16 12/11/16 Range/Units 13:39 09:07 WBC 35.8 H* 24.9 H (4.3-11.1) K/mcL Hgb 9.1 L 11.1 L D (12.9-16.9) g/dL Hct 26.9 L 33.6 L (37.5-50.1) % Plt Count 328 319 (140-400) K/mcL Neutrophils # 30.8 H 21.9 H (1.6-8.9) K/mcL BMP 12/10/16 13:39 Sodium 133 L Potassium 3.9 Chloride 108 Carbon Dioxide 20 BUN 13 Creatinine 0.77 Glucose 236 H Calcium 7.0 L Consult Discharge Plan - Plan [facility]errals: [facility] [Primary Care Provider] - <Martin Finley - Last Filed: 12/11/16 16:02> Date of Encounter: 12/11/16 - Assessment and plan (1) Catheter-associated urinary tract infection Current Visit: Yes Status: Acute Qualifiers: Indwelling urinary catheter type: indwelling urethral catheter Encounter type: subsequent encounter Qualified Code(s): T83.511D - Infection and inflammatory reaction due to indwelling urethral catheter, subsequent encounter ; N39.0 - Urinary tract infection, site not specified (2) Sepsis Current Visit: Yes Status: Acute Assessment and plan: Urine cx positive. Blood cx neg thus far. Awaiting final ID and sensitivity Qualifiers: Sepsis type: sepsis due to unspecified organism Qualified Code(s): A41.9 - Sepsis, unspecified organism (3) Essential (primary) hypertension Current Visit: Yes Status: Chronic (4) Diabetes mellitus Current Visit: Yes Status: Chronic Qualifiers: Diabetes mellitus type: type 2 Diabetes mellitus complication status: with unspecified complications Diabetes mellitus terminal worker insulin use: without long-term use Qualified Code(s): E11.8 - Type 2 diabetes mellitus with unspecified complications (5) COPD (chronic obstructive pulmonary disease) Current Visit: Yes Status: Chronic Qualifiers: COPD type: emphysema Emphysema type: unspecified Qualified Code(s): J43.9 - Emphysema, unspecified (6) Tobacco abuse Current Visit: Yes Status: Chronic (7) Pancreatic cancer Current Visit: Yes Status: Resolved Assessment and plan: s/p whipple Qualifiers: Pancreatic malignancy location: tail of pancreas Qualified Code(s): C25.2 - Malignant neoplasm of tail of pancreas (8) Moderate protein-calorie malnutrition Current Visit: Yes Status: Chronic - Constitutional Vitals: Temp Pulse Resp BP Pulse Ox 98.0 F 89 18 155/62 98 12/11/16 11:56 12/11/16 11:56 12/11/16 11:56 12/11/16 11:56 12/11/16 11:56 Internal Medicine: Result - Labs CBC & Chem 7: 12/11/16 09:07 12/11/16 09:07 Labs: Short CBC 12/11/16 Range/Units 09:07 WBC 24.9 H (4.3-11.1) K/mcL Hgb 11.1 L D (12.9-16.9) g/dL Hct 33.6 L (37.5-50.1) % Plt Count 319 (140-400) K/mcL Neutrophils # 21.9 H (1.6-8.9) K/mcL BMP 12/11/16 09:07 Sodium 131 L Potassium 3.9 Chloride 106 Carbon Dioxide 18 L BUN 10 Creatinine 0.73 Glucose 242 H Calcium 7.8 L - Attending Attestation I examined this patient and my medical decision-making was reviewed with the Resident Physician on 12/11/16. I agree with the documented findings, disposition and treatment plan as described except to the extent set forth below. Mr. Thurston is currently admitted for sepsis related to CAUTI. He is moderate to high risk due to potential for worsening clinical status from infection. Mr. Tuhrston is doing somewhat better today. His WBC has been decreasing. Blood cx neg thus far but urine positive. He refused labs initially but agreed later. Exam Alert. Comfortable Heart reg No wheeze No edema No abd pain Very [place] I/P 1. CAUTI - present on admission 2. Leukocytosis Further diagnoses and plan as above.
[2016-12-11 10:34] LABS: BUN/Creatinine Ratio 14 (6-26); Blood Urea Nitrogen 10 mg/dL (8-26); Calcium 7.8 mg/dL (8.6-10.8); Carbon Dioxide 18 mEq/L (19-29); Chloride 106 mEq/L (98-109); Glucose 242 mg/dL (70-99); Magnesium 1.1 mg/dL (1.6-2.6); Osmolality,Calculated 279 (280-300); Potassium 3.9 mEq/L (3.5-4.5); Sodium 131 mEq/L (136-145); eGFR For African Americans > 60 (> 60); eGFR For Non-African Americans > 60 (> 60)
[2016-12-11] MEDS ORDERED: Magnesium Sulfate 2 GM in D5% in Water 100 ML IVPB ONE (14:26)
--- NOTE | 2016-12-11 14:34 | Discharge Summary ---
<Lorenzo Jefferson - Last Filed: 12/11/16 14:32> Date of Encounter: 12/11/16 - Discharge Diagnosis (1) Catheter-associated urinary tract infection Priority: Primary Status: Acute (2) Urinary hesitancy Priority: Secondary Status: Acute (3) COPD (chronic obstructive pulmonary disease) Priority: Secondary Status: Chronic Qualifiers: COPD type: emphysema Emphysema type: unspecified Qualified Code(s): J43.9 - Emphysema, unspecified (4) Diabetes mellitus Priority: Secondary Status: Chronic Qualifiers: Diabetes mellitus type: type 2 Diabetes mellitus complication status: with unspecified complications Diabetes mellitus superintendent terminal insulin use: without superintendent terminal use Qualified Code(s): E11.8 - Type 2 diabetes mellitus with unspecified complications (5) Essential (primary) hypertension Priority: Secondary Status: Chronic (6) Tobacco abuse Priority: Secondary Status: Chronic (7) Hypoalbuminemia Priority: Secondary Status: Acute (8) Hypomagnesemia Priority: Secondary Status: Acute (9) Hyponatremia Priority: Secondary Status: Acute - Discharge Medications Prescriptions: levoFLOXacin [Levaquin] 500 mg PO DAILY #7 tablet Levofloxacin [Levaquin] 500 mg PO DAILY #1 tablet Tamsulosin [Flomax] 0.4 mg PO BID #60 cap.er.24h Home Medications: Aspirin 81 mg PO DAILY 10/19/16 [History] Atorvastatin Calcium [Lipitor] 20 mg PO DAILY 10/19/16 [History] Cholecalciferol (Vitamin D3) [Vitamin D3] 2,000 unit PO DAILY 10/19/16 [History] Insulin Glargine [Lantus] 30 unit SQ DAILY 10/19/16 [History] Lisinopril [Zestril] 5 mg PO DAILY 10/19/16 [History] Docusate [Colace] 100 mg PO BID PRN 12/10/16 [History] Furosemide [Lasix] 20 mg PO DAILY 12/10/16 [History] Ibuprofen [Motrin] 400 mg PO DAILY PRN 12/10/16 [History] Metformin HCl [Metformin HCl ER] 1,000 mg PO DAILY 12/10/16 [History] Metoclopramide [Reglan] 10 mg PO QIDAC PRN 12/10/16 [History] Nicotine Patch [Nicoderm] 21 mg TD DAILY 12/10/16 [History] Omeprazole [PriLOSEC] 20 mg PO DAILY 12/10/16 [History] OxyCODONE/APAP 5/325 [Percocet 5/325 MG] 2 tab PO Q4H PRN 12/10/16 [History] Levofloxacin [Levaquin] 500 mg PO DAILY #1 tablet 12/12/16 [Rx] Tamsulosin [Flomax] 0.4 mg PO BID #60 cap.er.24h 12/12/16 [Rx] levoFLOXacin [Levaquin] 500 mg PO DAILY #7 tablet 12/12/16 [Rx] Allergies/Adverse Reactions: Allergies No Known Allergies Allergy (Verified 10/19/16 10:16) Date of admission: 12/10/16 03:35 Primary care physician: PCP [facility] Consults: 12/10/16 18:59 Consult to Urology [CONS] Routine Consulting Provider: Urology Day Reason for Consult: CAUTI, difficulty urinating, refusing chun catheter. Call Completed: Yes Anticipated date of discharge: 12/12/16 - Patient Status Disposition: Home, Self-Care Condition: Fair Functional capacity at discharge: independent ambulation Overall status at discharge: patient is progressing back to baseline - Discharge Instructions Instructions: Urinary Tract Infection in Men (DC), Chronic Obstructive Pulmonary Disease (DC) Follow [facility] With: [facility] [Primary Care Provider[facility] - - Diet and Activity Activity: increase activity as tolerated Diet: advance to your usual diet Hospital course: Mr. Thurston is a 71 year old male, hard of hearing, that presented for difficulty to urinate x 2 weeks. Reported recent history 2 weeks ago of Whipple procedure for pancreatic cancer, he reports being discharged with a chun due to difficulty urinating and desired for discharge. Patient states he followed up with surgeon, Dr. Palma Coppola yesterday AM, was doing well at that time and chun was removed. He notes that afternoon at approximately 3 pm she felt weak with difficulty getting out of bed, was shaking, and unable to urinate. He states that family called EMS because he was "shaking". Upon arrival patient was found to be tachycardiac at 124, temp 99F, RR 22, BP 114/57 and O2 sat 96%. WBC 31.7(>47.2>35.8>225). Lactic acid 2.1(>1.7>1.0). UA positive for blood, nitrite, leukocyte esterase, bacteria, moderate epith cells. Patient had a CT abdomen reflective of post Whipple, some gastric distention with edematous changes, no obstruction; improving biliary dilatation and pancreatic duct dilatation; no free air, no abscess. Patient received one dose Vancomycin and Zosyn in the ED, continued on Cefepine and Vancomycin. He denies any abdominal pain, diarrhea, vomiting. Admits to nausea, burning with urination, difficulty urinating, chills/shaking, and weakness. Patient refusing chun catheter at this time. Only noting urination with bowel movements , notes history of blood in urine. No pain on palpation of abdomen, no erythema or discharge noted at midline incision. Lungs CTAB, no crackles, rales, rhochi on lung exam. No pain on palpation of chest, RRR. No acute distress, very hard of hearing. Spoke to Urology for consult, recommending increasing Flomax to 0.8mg and follow up as outpatient in 2-3 weeks. Spoke with Surgeon, Dr. Coppola from [facility] as family was concerned about need for transfer, discussed case with provider who agreed not needed at that time as patient was stable, we have infectious source, and WBC was improving. This was discussed with patient and family that was agreeable to the plan of care. - Time Spent with Patient Total time spent providing and/or coordinating discharge services: - Constitutional Vitals: Temp Pulse Resp BP Pulse Ox 98.0 F 89 18 155/62 98 12/11/16 11:56 12/11/16 11:56 12/11/16 11:56 12/11/16 11:56 12/11/16 11:56 General appearance: Present: mild distress, A&O X 3 <Long Larsen - Last Filed: 12/12/16 08:57> Date of Encounter: 12/12/16 Time of Encounter: 08:57 Date of admission: 12/10/16 03:35 [facility] care physician: [facility] Consults: 12/10/16 18:59 Consult to Urology [CONS] Routine Consulting Provider: Urology Day Reason for Consult: CAUTI, difficulty urinating, refusing chun catheter. Call Completed: Yes Discharging clinician: Long Larsen Hospital course: Patients pseudomonas was sensitive to levaquin. Will be discharged on po levaquin for 7 days. Patient refused to get labs this morning or conitnue IV abx. He is ok with going home on po levaquin. - Time Spent with Patient Total time spent providing and/or coordinating discharge services: - Constitutional Vitals: Temp Pulse Resp BP Pulse Ox 97.8 F 94 16 154/76 96 12/12/16 07:39 12/12/16 07:39 12/12/16 07:39 12/12/16 07:39 12/12/16 07:39 - Head Head exam: Present: atraumatic, normocephalic - Eye Eye exam: Present: PERRL, conjuntiva pink, sclera anicteric Pupils: Present: PERRL - Neck Neck exam general surgery: Present: supple, trachea midline. Absent: lymphadenopathy - Respiratory Respiratory exam: Present: CTAB. Absent: accessory muscle use, rales, rhonchi, wheezes - Cardiovascular Cardiovascular exam: Present: RRR, +S1, +S2. Absent: diastolic murmur, gallop, rubs, systolic murmur - GI/Abdominal GI/Abdominal exam: Present: normal bowel sounds, soft, no peritoneal signs. Absent: distended, tenderness - Extremities Exam Extremities exam: Present: warm, radial pulses palpable and symetrical. Absent : calf tenderness, cyanotic, pedal edema - Neurological Exam Neurological exam: Present: CN II-XII intact, oriented X3, no focal deficits. Absent: pronater drift, facial droop, speech deficit <Martin Finley - Last Filed: 12/12/16 18:45> Date of Encounter: 12/12/16 - Discharge Diagnosis (1) Catheter-associated urinary tract infection Status: Acute Qualifiers: Indwelling urinary catheter type: indwelling urethral catheter Encounter type: subsequent encounter Qualified Code(s): T83.511D - Infection and inflammatory reaction due to indwelling urethral catheter, subsequent encounter ; N39.0 - Urinary tract infection, site not specified (2) Sepsis Priority: Secondary Status: Resolved Qualifiers: Sepsis type: sepsis due to unspecified organism Qualified Code(s): A41.9 - Sepsis, unspecified organism (3) Essential (primary) hypertension Status: Chronic (4) Diabetes mellitus Status: Chronic Qualifiers: Diabetes mellitus type: type 2 Diabetes mellitus complication status: with unspecified complications Diabetes mellitus halfway insulin use: without superintendent terminal use Qualified Code(s): E11.8 - Type 2 diabetes mellitus with unspecified complications (5) COPD (chronic obstructive pulmonary disease) Status: Chronic Qualifiers: COPD type: emphysema Emphysema type: unspecified Qualified Code(s): J43.9 - Emphysema, unspecified (6) Tobacco abuse Status: Chronic (7) Pancreatic cancer Priority: Secondary Status: Resolved Qualifiers: Pancreatic malignancy location: tail of pancreas Qualified Code(s): C25.2 - Malignant neoplasm of tail of pancreas (8) Moderate protein-calorie malnutrition Priority: Secondary Status: Chronic Date of admission: 12/10/16 03:35 Primary care physician: [facility] Consults: 12/10/16 18:59 Consult to Urology [CONS] Routine Consulting Provider: Urology Day Reason for Consult: CAUTI, difficulty urinating, refusing chun catheter. Call Completed: Yes Hospital course: Mr. Thurston is a 71 year old male - Time Spent with Patient Total time spent providing and/or coordinating discharge services: 38min - Constitutional Vitals: Temp Pulse Resp BP Pulse Ox 97.8 F 94 16 154/76 96 12/12/16 07:39 12/12/16 07:39 12/12/16 07:39 12/12/16 07:39 12/12/16 08:00 - Attending Attestation I examined this patient and my medical decision-making was reviewed with the Resident Physician on 12/12/16. I agree with the documented findings, disposition and treatment plan as described except to the extent set forth below. Mr. Thurston is insistent on leaving this morning. He refused blood work. He is feeling better. His blood cx are neg and urine has pseudomonas. No issues overnight. He is afebrile and vitals stable. Exam alert. Comfortable Heart reg No wheeze Plan D/C today on PO Levaquin Follow up with PCP and surgeon - need WBC rechecked Continue increased Flomax dose.
[2016-12-11] MEDS ORDERED: Nicotine 21 MG PATCH.TD24 TD PRN (15:00)
[2016-12-12 05:04] LABS: Basophils # 0.1 K/mcL (0.0-0.2); Basophils % 0.4 %; Eosinophils # 0.2 K/mcL (0.0-0.6); Eosinophils % 1.3 %; Hematocrit 30.4 % (37.5-50.1); Hemoglobin 9.8 g/dL (12.9-16.9); Immature Granulocytes % 0.4 % (0-4); Lymphocytes % 13.7 %; Mean Corpuscular HGB Conc 32.2 g/dL (31.6-35.5); Mean Corpuscular Hemoglobin 29.3 pg (28.0-33.3); Mean Corpuscular Volume 90.7 fL (83.0-100.0); Mean Platelet Volume 9.4 fL (9.4-12.4); Monocytes # 0.9 K/mcL (0.0-1.3); Monocytes % 6.4 %; Neutrophils # 11.1 K/mcL (1.6-8.9); Platelet Count 324 K/mcL (140-400); Red Blood Count 3.35 M/mcL (4.19-5.50); Red Cell Distribution Width 13.3 % (11.5-14.5); Segmented Neutrophils % 77.8 %
[2016-12-12 05:16] LABS: BUN/Creatinine Ratio 11 (6-26); Blood Urea Nitrogen 8 mg/dL (8-26); Calcium 7.7 mg/dL (8.6-10.8); Carbon Dioxide 21 mEq/L (19-29); Chloride 107 mEq/L (98-109); Glucose 115 mg/dL (70-99); Magnesium 1.4 mg/dL (1.6-2.6); Osmolality,Calculated 279 (280-300); Potassium 3.9 mEq/L (3.5-4.5); Sodium 135 mEq/L (136-145); eGFR For African Americans > 60 (> 60); eGFR For Non-African Americans > 60 (> 60)
[2016-12-12 07:40] VITALS: BP 154/76
[2016-12-12] MEDS: Insulin LISPRO 300 UNITS/3 ML VIAL SQ SCH (08:34)
[2016-12-12] MEDS: *HR* Heparin 5,000 UNIT/ML VIAL SQ SCH (08:35)
[2016-12-12] MEDS: Vancomycin 1,000 MG in D5% in Water 250 ML IVPB SCH (08:36)
[2016-12-12] MEDS: Cefepime HCl 1,000 MG in D5% in Water (Mini-Bag+) 100 ML IVPB SCH (08:36)
[2016-12-12] MEDS ORDERED: levoFLOXacin 500 MG TABLET PO ONE (09:15)
[2016-12-12] MEDS ORDERED: Aminoglycoside Consult 1 EACH MC ONE (11:57)
== END 2016-12-12 11:58 | disposition home or self-care (01) | DRG 698 ==
LOC: 2NENU 20:00 → EMEROO 20:00 → 2NENU 23:28
PROVIDERS: ADMIT Internal Medicine; ATTEND Internal Medicine

== ENCOUNTER 2017-01-20 14:23 | Inpatient (IN) ==
[2017-01-20] MEDS ORDERED: *HR* HYDROmorphone (PF) 1 MG/ML SYRINGE IVP ONE (15:09)
[2017-01-20] MEDS ORDERED: 0.9 % Sodium Chloride 500 ML IVC ONE (15:09)
[2017-01-20] MEDS ORDERED: Lidocaine Viscous Oral Soln 15 ML SOLUTION MM STA (15:09)
[2017-01-20] MEDS ORDERED: Ondansetron 4 MG/2 ML VIAL IVP ONE (15:09)
[2017-01-20 16:38] LABS: INR 1.2; Prothrombin Time 13.5 Seconds (9.4-12.1)
[2017-01-20 16:39] LABS: Hemoglobin 8.9 g/dL (12.9-16.9)
[2017-01-20 16:40] LABS: Eosinophils # 0.1 K/mcL (0.0-0.6); Hematocrit 26.5 % (37.5-50.1); Lymphocytes % 43.1 %; Mean Corpuscular HGB Conc 33.6 g/dL (31.6-35.5); Mean Corpuscular Volume 86.3 fL (83.0-100.0); Mean Platelet Volume 9.5 fL (9.4-12.4); Monocytes % 1.1 %; Neutrophils # 0.9 K/mcL (1.6-8.9); Red Blood Count 3.07 M/mcL (4.19-5.50); Red Cell Distribution Width 13.7 % (11.5-14.5); Segmented Neutrophils % 51.8 %
[2017-01-20 16:45] LABS: Alanine Aminotransferase 8 Units/L (0-55); Albumin 2.3 g/dL (3.5-5.0); Albumin/Globulin Ratio 0.8 (1.1-2.2); Alkaline Phosphatase 72 Units/L (38-126); Aspartate Amino Transferase 14 Units/L (5-34); BUN/Creatinine Ratio 13 (6-26); Bilirubin,Total 0.4 mg/dL (0.2-1.2); Blood Urea Nitrogen 10 mg/dL (8-26); Calcium 8.2 mg/dL (8.6-10.8); Carbon Dioxide 27 mEq/L (19-29); Chloride 104 mEq/L (98-109); Glucose 133 mg/dL (70-99); Magnesium 1.3 mg/dL (1.6-2.6); Osmolality,Calculated 281 (280-300); Potassium 3.7 mEq/L (3.5-4.5); Sodium 135 mEq/L (136-145); Total Protein 5.3 g/dL (6.0-8.3); eGFR For African Americans > 60 (> 60); eGFR For Non-African Americans > 60 (> 60)
[2017-01-20 16:58] LABS: Lymphocytes # 0.7 K/mcL (0.6-4.6); Platelet Count 67 K/mcL (140-400)
[2017-01-20 17:00] LABS: Platelet Estimate Marked Decrease (Normal)
--- NOTE | 2017-01-20 18:45 | Emergency Department Note ---
Disposition Clinical Impression: Pancolitis, Abdominal pain with vomiting Diarrhea Qualifiers: Diarrhea type: unspecified type Qualified Code(s): R19.7 - Diarrhea, unspecified Disposition: Admitted As Inpatient [facility]Primary Care Provider[facility] - Forms: ED Satisfaction Letter Abdominal Pain HPI - General Chief Complaint: ED GI Bleed Stated Complaint: Rectal Bleed Time Seen by Provider: 01/20/17 14:39 Source: patient, family Mode of arrival: ambulatory Limitations: no limitations Nursing Notes Reviewed: Yes Vital Signs Reviewed: Yes - History of Present Illness Pt Subjective Complaint: abdominal pain Onset (ago): day(s) (4) Consistency: constant Location: diffuse Pain Scale: 6 Quality: cramping, aching Radiation: none Improves with: nothing Worsens with: nothing Associated symptoms: Reports: nausea, vomiting, diarrhea. Denies: hematemesis, hematochezia Treatments prior to arrival: prescription analgesics - Related Data Home Medications Medication Instructions Recorded Confirmed Aspirin 81 mg PO DAILY 10/19/16 01/04/17 Atorvastatin Calcium [Lipitor] 20 mg PO DAILY 10/19/16 01/04/17 Cholecalciferol (Vitamin D3) 2,000 unit PO DAILY 10/19/16 01/04/17 [Vitamin D3] Insulin Glargine [Lantus] 30 unit SQ DAILY 10/19/16 01/04/17 Lisinopril [Zestril] 5 mg PO DAILY 10/19/16 01/04/17 Docusate [Colace] 100 mg PO BID PRN 12/10/16 01/04/17 Furosemide [Lasix] 20 mg PO DAILY 12/10/16 01/04/17 Metformin HCl [Metformin HCl ER] 1,000 mg PO DAILY 12/10/16 01/04/17 Omeprazole [PriLOSEC] 20 mg PO DAILY 12/10/16 01/04/17 Previous Rx's Medication Instructions Recorded Capecitabine [Xeloda] 3 tab PO BID #70 tablet 12/23/16 Omeprazole [PriLOSEC] 20 mg PO BIDAC #30 cap 12/23/16 Ondansetron HCl [Zofran] 4 mg PO Q4HR #30 tablet 12/23/16 Prochlorperazine Maleate 10 mg PO Q6H PRN #30 tablet 12/23/16 [Compazine] Lipase/Protease/Amylase [Creon Dr 1 each PO QIDAC #120 cap 01/04/17 24,000 Units Capsule] Lidocaine/Prilocaine [Emla] 1 appl TP AD #30 gm 01/14/17 Magic Mouthwash 10 ml PO Q3H PRN #240 ml 01/18/17 Allergies Allergy/AdvReac Type Severity Reaction Status Date / Time No Known Allergies Allergy Verified 10/19/16 10:16 All systems ED: reviewed and negative except as stated. Constitutional: Reports: weakness Gastrointestinal: Reports: abdominal pain, nausea, vomiting, diarrhea Abdominal Pain PMH - Past Medical History Medical history: Reports: arthritis, cancer, COPD, diabetes, hyperlipidemia, hypertension, other Male Surgical History: Reports: other Psychiatric history: Reports: no psych history - Social History Smoking status: Current every day smoker Alcohol use: Reports: none Drug use: Reports: none Physical Exam - General Limitations: no limitations General appearance: alert, in no apparent distress - Head Head exam: atraumatic, normocephalic, normal inspection - Eye Eye exam: Present: normal appearance, PERRL, EOMI - ENT ENT exam: other (patient has mucosal ulcerations) - Neck Neck exam: Present: normal inspection, full ROM, trachea midline - Chest Chest inspection: Present: normal inspection, symmetric chest wall rise - Cardiovascular Cardiovascular exam: Present: regular rate, normal rhythm, normal heart sounds - Abdominal Exam Abdominal exam: Present: soft Abdominal tenderness: Present: RLQ, LLQ, moderate - Back Exam Back exam: Present: normal inspection, full ROM. Absent: tenderness - Neurological Exam Neurological exam: Present: alert, oriented X3 - Psychiatric Psychiatric exam: Present: normal affect, normal mood - Skin Skin exam: Present: warm, dry, intact, normal color Course Vital Signs Temperature 97.9 F 01/20/17 14:38 Pulse Rate 102 01/20/17 14:38 Respiratory Rate 16 01/20/17 14:38 Blood Pressure 101/64 01/20/17 14:38 O2 Sat by Pulse Oximetry 97 01/20/17 14:38 Temperature 97.9 F 01/20/17 14:38 Pulse Rate 76 01/20/17 18:33 Respiratory Rate 16 01/20/17 18:33 Blood Pressure 139/66 01/20/17 18:33 O2 Sat by Pulse Oximetry 95 06/28/17 18:33 Oxygen Delivery Oxygen Delivery Room Air Abdominal Pain - Lab Data Result diagrams: 01/20/17 16:36 01/20/17 16:19 Lab Results 01/20/17 01/20/17 01/20/17 Range/Units 16:19 16:19 16:19 WBC (4.3-11.1) K/mcL RBC (4.19-5.50) M/mcL Hgb (12.9-16.9) g/dL Hct (37.5-50.1) % MCV (83.0-100.0) fL MCH (28.0-33.3) pg MCHC (31.6-35.5) g/dL RDW (11.5-14.5) % Plt Count (140-400) K/mcL MPV (9.4-12.4) fL Immature Gran % (0-4) % Seg Neutrophils % % Lymphocytes % % Monocytes % % Eosinophils % % Basophils % % Neutrophils # (1.6-8.9) K/mcL Lymphocytes # (0.6-4.6) K/mcL Monocytes # (0.0-1.3) K/mcL Eosinophils # (0.0-0.6) K/mcL Basophils # (0.0-0.2) K/mcL Platelet Estimate (Normal) PT 13.5 H (9.4-12.1) Seconds INR 1.2 APTT 30.0 (26.0-36.0) Seconds Sodium 135 L (136-145) mEq/L Potassium 3.7 (3.5-4.5) mEq/L Chloride 104 (98-109) mEq/L Carbon Dioxide 27 (19-29) mEq/L BUN 10 (8-26) mg/dL Creatinine 0.75 (0.72-1.25) mg/dL Est GFR ( Amer) > 60 (> 60) Est GFR (Non-Af Amer) > 60 (> 60) BUN/Creatinine Ratio 13 (6-26) Glucose 133 H (70-99) mg/dL Calculated Osmolality 281 (280-300) Calcium 8.2 L (8.6-10.8) mg/dL Magnesium 1.3 L (1.6-2.6) mg/dL Total Bilirubin 0.4 (0.2-1.2) mg/dL AST 14 (5-34) Units/L ALT 8 (0-55) Units/L Alkaline Phosphatase 72 (38-126) Units/L Serum Total Protein 5.3 L (6.0-8.3) g/dL Albumin 2.3 L (3.5-5.0) g/dL Globulin 3.0 (2.4-3.5) g/dL Albumin/Globulin Ratio 0.8 L (1.1-2.2) Blood Type A NEGATIVE Antibody Screen NEGATIVE 01/20/17 Range/Units 16:36 WBC 1.7 L (4.3-11.1) K/mcL RBC 3.07 L (4.19-5.50) M/mcL Hgb 8.9 L (12.9-16.9) g/dL Hct 26.5 L (37.5-50.1) % MCV 86.3 (83.0-100.0) fL MCH 29.0 (28.0-33.3) pg MCHC 33.6 (31.6-35.5) g/dL RDW 13.7 (11.5-14.5) % Plt Count 67 L (140-400) K/mcL MPV 9.5 (9.4-12.4) fL Immature Gran % 0.0 (0-4) % Seg Neutrophils % 51.8 % Lymphocytes % 43.1 % Monocytes % 1.1 % Eosinophils % 4.0 % Basophils % 0.0 % Neutrophils # 0.9 L (1.6-8.9) K/mcL Lymphocytes # 0.7 (0.6-4.6) K/mcL Monocytes # 0.0 (0.0-1.3) K/mcL Eosinophils # 0.1 (0.0-0.6) K/mcL Basophils # 0.0 (0.0-0.2) K/mcL Platelet Estimate Marked Decrease L (Normal) PT (9.4-12.1) Seconds INR APTT (26.0-36.0) Seconds Sodium (136-145) mEq/L Potassium (3.5-4.5) mEq/L Chloride (98-109) mEq/L Carbon Dioxide (19-29) mEq/L BUN (8-26) mg/dL Creatinine (0.72-1.25) mg/dL Est GFR ( Amer) (> 60) Est GFR (Non-Af Amer) (> 60) BUN/Creatinine Ratio (6-26) Glucose (70-99) mg/dL Calculated Osmolality (280-300) Calcium (8.6-10.8) mg/dL Magnesium (1.6-2.6) mg/dL Total Bilirubin (0.2-1.2) mg/dL AST (5-34) Units/L ALT (0-55) Units/L Alkaline Phosphatase (38-126) Units/L Serum Total Protein (6.0-8.3) g/dL Albumin (3.5-5.0) g/dL Globulin (2.4-3.5) g/dL Albumin/Globulin Ratio (1.1-2.2) Blood Type Antibody Screen
[2017-01-20] MEDS ORDERED: 0.9 % Sodium Chloride 1,000 ML IVC ONE ×2 (20:01→21:33)
[2017-01-20] MEDS ORDERED: Ondansetron 4 MG/2 ML VIAL IVP PRN (21:10)
[2017-01-20] MEDS ORDERED: Naloxone 0.4 MG/ML INJ IVP PRN (21:10)
[2017-01-20] MEDS ORDERED: *HR* HYDROmorphone (PF) 1 MG/ML SYRINGE IVP PRN (21:10)
[2017-01-20] MEDS ORDERED: Magic Mouthwash 10 ML UD Cup PO PRN ×2 (21:13→21:24)
[2017-01-20] MEDS ORDERED: Dextrose Gel 15 GM PO PRN ×2 (21:34)
[2017-01-20] MEDS ORDERED: D5% in Water 1,000 ML IVC PRN (21:34)
[2017-01-20] MEDS ORDERED: *HR* Dextrose 50 % in Water (Syg) 50 ML SYRINGE IVP PRN (21:34)
--- NOTE | 2017-01-20 21:38 | Internal Med History&Physical ---
Date of Encounter: 01/20/17 Time of Encounter: 21:34 Assessment and Plan (1) Pancolitis Current visit: Yes Status: Acute Patient with bloody diarrhea and abdominal pain. CT abd/pelvis showed pancolitis suspicious for infection or inflammatory colitis. Patient is immunosuppressed on chemotherapy for his pancreatic cancer. Suspect c.diff. c.diff PCR ordered. Flagyl and Cipro IVPB IV fluids 0.9NS at 75mL/hr clear liquid diet, advance as tolerated. Orange and dilaudid PRN for abdominal pain. (2) Neutropenia Current visit: Yes Status: Acute Patient with WBC of 1.7 and absolute neutrophil count of 0.9. Down from previously normal values prior to initiating chemotherapy. Will hold Xeloda. Neutropenic precautions. Qualifiers: Neutropenia type: secondary to cancer chemotherapy Qualified Code(s): D70.1 - Agranulocytosis secondary to cancer chemotherapy (3) Type 2 diabetes mellitus Current visit: Yes Status: Acute check blood sugars ACHS Sliding scale correction dose ACHS hypoglycemic protocol. 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 CT abd/pelvis showed pancolitis suspicious for infection or inflammatory colitis. Patient is immunosuppressed on chemotherapy for his pancreatic cancer. Suspect c.diff. c.diff PCR ordered. Flagyl and Cipro IVPB IV fluids 0.9NS at 75mL/hr clear liquid diet, advance as tolerated. contact precautions. Qualifiers: Diarrhea type: presumed infectious Qualified Code(s): A09 - Infectious gastroenteritis and colitis, unspecified (5) Anemia Current visit: No Status: Acute Patient with Hgb of 8.9, WBC of 1.7, Plt of 67, all down from higher values prior to starting on chemotherapy. Patient is also reporting bloody diarrhea, so there may be acute blood loss anemia as well. FOB ordered check H/H Q6hrs. neutropenic precautions Qualifiers: Anemia type: bone marrow failure Bone marrow failure anemia type: pancytopenia, antineoplastic chemotherapy-induced Qualified Code(s): D61.810 - Antineoplastic chemotherapy induced pancytopenia (6) Hypomagnesemia Current visit: No Status: Acute Magnesium of 1.3. 2gm Magnesium sulfate IVPB. Recheck magnesium with morning labs. (7) Pancreatic cancer Current visit: No Status: Acute Patient has pancreatic cancer s/p whipple and is on chemotherapy, last round . Patient presenting with neutropenia and colitis. Patient expressed possible desire to stop chemotherapy. Palliative care consulted. Qualifiers: Pancreatic malignancy location: head of pancreas Qualified Code(s): C25.0 - Malignant neoplasm of head of pancreas (8) Tobacco abuse Current visit: No Status: Chronic Patient continues to smoke 1PPD. Discussed smoking cessation. Patient not interested in quitting at this time. Nicotine patch ordered. Smoking cessation education ordered. (9) DVT prophylaxis Current visit: Yes Status: Acute sequential compression devices. Patient with bloody diarrhea, and dropping hgb, suspect GI bleeding. pharmacologic prophylaxis contraindicated. Internal Medicine - H&P: HPI Chief complaint: diarrhea Admitted From: Emergency Dept Plans for Post Hospital Care: Home History of present illness: Mr. Thurston is a 71 year old male with hypertension, hyperlipidemia, type 2 diabetes, COPD, pancreatic cancer status post Whipple and on chemotherapy presented to the emergency department today with complaints of abdominal pain and bloody diarrhea. Patient reports diarrhea has been going on for several days, abdominal pain started today. The diarrhea became bloody today as well. Patient has been able to tolerate food, and has not been nauseous or vomiting. He denies any lightheadedness, headaches, chest pain, palpitations, shortness of breath, fever, chills, or sweats. Patient has had 2 rounds of chemotherapy for his pancreatic cancer, with last being on the . Evaluation in the emergency department revealed white blood cell count low at 1.7, magnesium low at 1.3. CT of abdomen and pelvis showed pancolitis suspicious for infectious or inflammatory colitis. On exam, patient alert and oriented, in no acute distress. Patient is significantly hard of hearing. Lungs are clear bilaterally to auscultation, heart has regular rate and rhythm. Abdomen is soft , diffusely tender to palpation, with normal bowel sounds. He has bilateral lower extremity trace edema. Past Med Surg Social Fam HX - Past Medical History Medical history: arthritis, cancer, COPD, diabetes, hyperlipidemia, hypertension , other Psychiatric history: no psych history - Past Surgical History Surgical History: appendectomy, herniorrhaphy, other - Social History Smoking Status: Current every day smoker Packs per day: 1 Smokeless Tobacco Status: No Alcohol use: none Drug use: none - Family History Brother Living Status: Cause of : Cancer Hx Family Cancer: Yes Internal Medicine - H&P: Meds Aspirin 81 mg PO DAILY 10/19/16 [History] Atorvastatin Calcium [Lipitor] 20 mg PO DAILY 10/19/16 [History] Cholecalciferol (Vitamin D3) [Vitamin D3] 2,000 unit PO DAILY 10/19/16 [History] Insulin Glargine [Lantus] 25 - 30 unit SQ DAILY 10/19/16 [History] Lisinopril [Zestril] 5 mg PO DAILY 10/19/16 [History] Furosemide [Lasix] 20 mg PO DAILY 12/10/16 [History] Omeprazole [PriLOSEC] 20 mg PO DAILY 12/10/16 [History] Ondansetron HCl [Zofran] 4 mg PO Q4HR #30 tablet 12/23/16 [Rx] Prochlorperazine Maleate [Compazine] 10 mg PO Q6H PRN #30 tablet 12/23/16 [Rx] Lidocaine/Prilocaine [Emla] 1 appl TP AD #30 gm 01/14/17 [Rx] Magic Mouthwash 10 ml PO Q3H PRN #240 ml 01/18/17 [Rx] Capecitabine [Xeloda] 1,000 mg PO QPM 01/20/17 [History] Capecitabine [Xeloda] 1,500 mg PO QAM 01/20/17 [History] Cyanocobalamin (Vitamin B-12) [Vitamin B12] 1,000 mcg PO DAILY 01/20/17 [History ] Lipase/Protease/Amylase [Creon Dr 24,000 Units Capsule] 1 tab PO QIDAC 01/20/17 [History] Loperamide [Imodium] 2 mg PO BID PRN 01/20/17 [History] Metoclopramide [Reglan] 10 mg PO ACHS 01/20/17 [History] Tamsulosin [Flomax] 0.4 mg PO DAILY 01/20/17 [History] metFORMIN [Glucophage] 1,000 mg PO DAILY 01/20/17 [History] Allergies No Known Allergies Allergy (Verified 10/19/16 10:16) All Systems PM: A 10-system review of systems was performed and is negative for pertinent findings except as documented above in the HPI. - Constitutional Constitutional: no chills, no fever(s), no night sweats - EENT Eyes: no change in vision, no discharge, no pain, no photophobia Ears: no ear discharge, no ear pain, no tinnitus Nose, mouth and throat: no dysphagia, no nasal discharge, no neck pain, no sore throat - Cardiovascular Cardiovascular ROS IM: no chest pain, no diaphoresis, no dyspnea, no lightheadedness, no palpitations, no syncope - Respiratory Respiratory: no cough, no dyspnea, no wheezing, no excessive phlegm production - Gastrointestinal Gastrointestinal: abdominal pain, diarrhea, hematochezia, no hematemesis, no melena, no nausea, no vomiting - Musculoskeletal Musculoskeletal ROS IM: no numbness, no tingling - Integumentary Integumentary IM: no rash, no unusual bruising - Neurological Neurological ROS: no confusion, no convulsions, no focal weakness, no numbness, no tingling, no tremor(s) - Hematologic/Lymphatic Hematologic/Lymphatic: no easy bruising - Constitutional Vitals: Temp Pulse Resp BP Pulse Ox 97.9 F 76 17 139/66 97 01/20/17 14:38 01/20/17 20:19 01/20/17 21:05 01/20/17 21:05 01/20/17 20:19 General appearance: Present: A&O X 3, pleasant, no acute distress - Head Head exam: Present: atraumatic, normocephalic - Eye Eye exam: Present: PERRL, conjuntiva pink, sclera anicteric Pupils: Present: PERRL - Neck Neck exam general surgery: Present: supple, trachea midline. Absent: lymphadenopathy - Respiratory Respiratory exam: Present: CTAB. Absent: accessory muscle use, rales, rhonchi, wheezes - Cardiovascular Cardiovascular exam: Present: RRR, +S1, +S2. Absent: diastolic murmur, gallop, rubs, systolic murmur - GI/Abdominal GI/Abdominal exam: Present: normal bowel sounds, soft, tenderness, no peritoneal signs. Absent: distended - Extremities Exam Extremities exam: Present: pedal edema (trace bilateral), warm, radial pulses palpable and symetrical. Absent: calf tenderness, cyanotic - Neurological Exam Neurological exam: Present: CN II-XII intact, oriented X3, no focal deficits. Absent: facial droop, speech deficit - Skin Skin exam: Present: dry, intact Internal Med - H&P Results - Labs CBC & Chem 7: 01/20/17 16:36 01/20/17 16:19 Labs: All Lab Results (24 Hours) 01/20/17 01/20/17 01/20/17 Range/Units 16:19 16:19 16:19 WBC (4.3-11.1) K/mcL RBC (4.19-5.50) M/mcL Hgb (12.9-16.9) g/dL Hct (37.5-50.1) % MCV (83.0-100.0) fL MCH (28.0-33.3) pg MCHC (31.6-35.5) g/dL RDW (11.5-14.5) % Plt Count (140-400) K/mcL MPV (9.4-12.4) fL Immature Gran % (0-4) % Seg Neutrophils % % Lymphocytes % % Monocytes % % Eosinophils % % Basophils % % Neutrophils # (1.6-8.9) K/mcL Lymphocytes # (0.6-4.6) K/mcL Monocytes # (0.0-1.3) K/mcL Eosinophils # (0.0-0.6) K/mcL Basophils # (0.0-0.2) K/mcL Platelet Estimate (Normal) PT 13.5 H (9.4-12.1) Seconds INR 1.2 APTT 30.0 (26.0-36.0) Seconds Sodium 135 L (136-145) mEq/L Potassium 3.7 (3.5-4.5) mEq/L Chloride 104 (98-109) mEq/L Carbon Dioxide 27 (19-29) mEq/L BUN 10 (8-26) mg/dL Creatinine 0.75 (0.72-1.25) mg/dL Est GFR ( Amer) > 60 (> 60) Est GFR (Non-Af Amer) > 60 (> 60) BUN/Creatinine Ratio 13 (6-26) Glucose 133 H (70-99) mg/dL Calculated Osmolality 281 (280-300) Calcium 8.2 L (8.6-10.8) mg/dL Magnesium 1.3 L (1.6-2.6) mg/dL Total Bilirubin 0.4 (0.2-1.2) mg/dL AST 14 (5-34) Units/L ALT 8 (0-55) Units/L Alkaline Phosphatase 72 (38-126) Units/L Serum Total Protein 5.3 L (6.0-8.3) g/dL Albumin 2.3 L (3.5-5.0) g/dL Globulin 3.0 (2.4-3.5) g/dL Albumin/Globulin Ratio 0.8 L (1.1-2.2) Stool Occult Blood (Negative) Stl C. diff Tox B Gene (Negative) Blood Type A NEGATIVE Antibody Screen NEGATIVE 01/20/17 01/20/17 01/20/17 Range/Units 16:36 20:14 20:14 WBC 1.7 L (4.3-11.1) K/mcL RBC 3.07 L (4.19-5.50) M/mcL Hgb 8.9 L (12.9-16.9) g/dL Hct 26.5 L (37.5-50.1) % MCV 86.3 (83.0-100.0) fL MCH 29.0 (28.0-33.3) pg MCHC 33.6 (31.6-35.5) g/dL RDW 13.7 (11.5-14.5) % Plt Count 67 L (140-400) K/mcL MPV 9.5 (9.4-12.4) fL Immature Gran % 0.0 (0-4) % Seg Neutrophils % 51.8 % Lymphocytes % 43.1 % Monocytes % 1.1 % Eosinophils % 4.0 % Basophils % 0.0 % Neutrophils # 0.9 L (1.6-8.9) K/mcL Lymphocytes # 0.7 (0.6-4.6) K/mcL Monocytes # 0.0 (0.0-1.3) K/mcL Eosinophils # 0.1 (0.0-0.6) K/mcL Basophils # 0.0 (0.0-0.2) K/mcL Platelet Estimate Marked Decrease L (Normal) PT (9.4-12.1) Seconds INR APTT (26.0-36.0) Seconds Sodium (136-145) mEq/L Potassium (3.5-4.5) mEq/L Chloride (98-109) mEq/L Carbon Dioxide (19-29) mEq/L BUN (8-26) mg/dL Creatinine (0.72-1.25) mg/dL Est GFR ( Amer) (> 60) Est GFR (Non-Af Amer) (> 60) BUN/Creatinine Ratio (6-26) Glucose (70-99) mg/dL Calculated Osmolality (280-300) Calcium (8.6-10.8) mg/dL Magnesium (1.6-2.6) mg/dL Total Bilirubin (0.2-1.2) mg/dL AST (5-34) Units/L ALT (0-55) Units/L Alkaline Phosphatase (38-126) Units/L Serum Total Protein (6.0-8.3) g/dL Albumin (3.5-5.0) g/dL Globulin (2.4-3.5) g/dL Albumin/Globulin Ratio (1.1-2.2) Stool Occult Blood Positive A (Negative) Stl C. diff Tox B Gene Negative (Negative) Blood Type Antibody Screen - Diagnostic Studies CT scan - abdomen Additional comments: Abdomen/Pelvis CT 01/20/17 17:14 IMPRESSION: Pancolitis, with circumferential wall thickening and pericolonic stranding suspicious for an infectious or inflammatory colitis. No pericolonic abscess collection or perforation is identified. Postsurgical changes seen from prior Whipple procedure. Similar appearing periportal low with a small amount of pneumobilia noted in the left hepatic lobe. Extensive atherosclerotic disease, with a mid SMA artery severe stenosis, just proximal to the origin of the ileocecal branches. The celiac and GARETT are also patent however. The patient's colitis is not felt related to ischemia given the distribution however. D/ / Jake Durbin MD / Jake Durbin MD Interpreting Provider: Jake Durbin MD
[2017-01-20 22:59] LABS: Hemoglobin 8.7 g/dL (12.9-16.9)
[2017-01-20 23:01] LABS: Hematocrit 26.4 % (37.5-50.1)
[2017-01-20] MEDS: MetroNIDAZOLE 500 MG/100 ML 500 MG/100 ML BAG IVPB SCH (23:56)
[2017-01-21] MEDS: Insulin LISPRO 300 UNITS/3 ML VIAL SQ SCH ×5 (00:37→21:57)
[2017-01-21] MEDS: Nicotine 21 MG PATCH.TD24 TD SCH ×2 (00:38→08:38)
[2017-01-21 03:56] LABS: Mean Corpuscular Hemoglobin 28.8 pg (28.0-33.3)
[2017-01-21 03:58] LABS: Eosinophils # 0.1 K/mcL (0.0-0.6); Eosinophils % 3.3 %; Lymphocytes # 0.9 K/mcL (0.6-4.6); Lymphocytes % 48.3 %; Mean Corpuscular HGB Conc 33.3 g/dL (31.6-35.5); Mean Corpuscular Volume 86.3 fL (83.0-100.0); Mean Platelet Volume 8.9 fL (9.4-12.4); Monocytes # 0.1 K/mcL (0.0-1.3); Monocytes % 3.3 %; Neutrophils # 0.8 K/mcL (1.6-8.9); Red Blood Count 2.78 M/mcL (4.19-5.50); Red Cell Distribution Width 13.4 % (11.5-14.5); Segmented Neutrophils % 45.1 %
[2017-01-21 04:17] LABS: BUN/Creatinine Ratio 13 (6-26); Blood Urea Nitrogen 8 mg/dL (8-26); Calcium 7.6 mg/dL (8.6-10.8); Carbon Dioxide 26 mEq/L (19-29); Chloride 106 mEq/L (98-109); Glucose 104 mg/dL (70-99); Osmolality,Calculated 279 (280-300); Potassium 3.4 mEq/L (3.5-4.5); Sodium 135 mEq/L (136-145); eGFR For African Americans > 60 (> 60); eGFR For Non-African Americans > 60 (> 60)
[2017-01-21 04:23] LABS: Platelet Count 58 K/mcL (140-400)
[2017-01-21 04:24] LABS: Platelet Estimate Decreased (Normal)
[2017-01-21] MEDS: *HR* HYDROcodone/Acet 5/325 mg TABLET PO PRN ×4 (04:28→17:05)
[2017-01-21 05:03] LABS: Magnesium 1.3 mg/dL (1.6-2.6)
[2017-01-21] MEDS: Cyanocobalamin (B-12) 1,000 MCG TABLET PO SCH (08:40)
[2017-01-21] MEDS: MetroNIDAZOLE 500 MG/100 ML 500 MG/100 ML BAG IVPB SCH ×2 (08:41→15:44)
[2017-01-21] MEDS ORDERED: Magic Mouthwash 10 ML UD Cup PO PRN (09:12)
--- NOTE | 2017-01-21 09:15 | Palliative - Consult Note ---
Date of Encounter: 01/21/17 Time of Encounter: 08:55 - Assessment and Plan (1) Pancolitis Current Visit: Yes Status: Acute Assessment and plan: After discussing with oncology it seems the most likely source of this is his xeloda, oncology will be by to discuss with him however the plan appears to be that they will stop this a loading continue with 1 chemotherapeutic agent only. Discussed this with the patient he would like to continue getting chemotherapy , however he wants the GI symptoms to cease and he wants to discuss this further with oncology. (2) Goals of care, counseling/discussion Current Visit: Yes Status: Acute Assessment and plan: Patient's CODE STATUS is already DNR CCA DNI. I think this is appropriate. Patient did reconfirm no further discussion there. Goals of care: Discussed this with the patient he would like to continue getting chemotherapy, however he wants the GI symptoms to cease and he wants to discuss this further with oncology To that and at patient request I did consult oncology. They will come by and discuss further with him chemotherapeutic options that do not include Xeloda. (3) Abdominal pain with vomiting Current Visit: Yes Status: Acute Assessment and plan: Patient reports nausea but no active vomiting going on right now does have some appetite, Anam pain has been well-controlled with his Vicodin. Recommend any changes at this time. (4) Abdominal pain Current Visit: No Status: Acute Assessment and plan: The patient this seems to be well-controlled with Vicodin. We will continue to watch. No changes are anticipated at this time. Qualifiers: Abdominal location: upper abdomen, unspecified Qualified Code(s): R10.10 - Upper abdominal pain, unspecified (5) Pancreatic cancer Current Visit: No Status: Acute Assessment and plan: Being followed by oncology. Discussed with patient he would like to hear options for chemotherapy that do not necessarily include the chemotherapeutic agent that seems to be causing his problems with colitis. As he has requested this information I have consulted oncology. I have also discussed the case with them and they will see the patient. Qualifiers: Pancreatic malignancy location: head of pancreas Qualified Code(s): C25.0 - Malignant neoplasm of head of pancreas (6) Moderate protein-calorie malnutrition Current Visit: No Status: Chronic Assessment and plan: The patient wishes to eat, however the abdominal discomfort and nausea is causing problems for him, as the colitis was down he will be able to get nutrition in. He is interested in trying to fight the cancer as best as he can. Palliative-CN HPI - Data of Consult Patient: new to practice Requesting Physician: Mal Salazar MD [facility] Care Provider[facility] - Consult Narrative Palliative Care/Comfort Measures: Palliative care Reason for consult: Goals of care, History of present illness: Mr. Thurston is a 71 year old male With of history of pancreatic cancer that is T3 N1 M0 stage IIB pancreatic adenocarcinoma status post Whipple surgery last month, getting so Reliance and and Gemzar. The patient had been tolerating this, however he is been having worsening ROMs with bloody stool lesions in the mouth as well as abdominal pain or to the emergency department yesterday with complaints of bloody diarrhea and abdominal pain. Per discussion with ecology is felt this is probably secondary to his Xeloda. She does complain of crampy lower abdominal pain which seems to come and go and is well relieved by his Vicodin. So concerned about pain in his mouth and has multiple lesions in his mouth. She is currently able to eat states he does have some nausea but no active vomiting. Infrequent bloody stools. She denies any other problems. His incision has healed well. Overall he has lost 64 pounds since the initial diagnosis of pancreatic cancer. The patient had talked with family and with the hospitalist last night about wishing to stop chemotherapy. Palliative care was consulted regarding this. Please see the assessment and plan. CC: Mal Salazar MD Abdominal pain and bloody stools Past Med Surg Social Fam HX - Past Medical History Medical history: arthritis, cancer, COPD, diabetes, hyperlipidemia, hypertension , other Psychiatric history: no psych history - Past Surgical History Surgical History: appendectomy, herniorrhaphy, other - Social History Smoking Status: Current every day smoker Packs per day: 1 Smokeless Tobacco Status: No Alcohol use: none Drug use: none - Family History Brother Living Status: Cause of : Cancer Hx Family Cancer: Yes Medications and Allergies Aspirin 81 mg PO DAILY 10/19/16 [History] Atorvastatin Calcium [Lipitor] 20 mg PO DAILY 10/19/16 [History] Cholecalciferol (Vitamin D3) [Vitamin D3] 2,000 unit PO DAILY 10/19/16 [History] Insulin Glargine [Lantus] 25 - 30 unit SQ DAILY 10/19/16 [History] Lisinopril [Zestril] 5 mg PO DAILY 10/19/16 [History] Furosemide [Lasix] 20 mg PO DAILY 12/10/16 [History] Omeprazole [PriLOSEC] 20 mg PO DAILY 12/10/16 [History] Ondansetron HCl [Zofran] 4 mg PO Q4HR #30 tablet 12/23/16 [Rx] Prochlorperazine Maleate [Compazine] 10 mg PO Q6H PRN #30 tablet 12/23/16 [Rx] Lidocaine/Prilocaine [Emla] 1 appl TP AD #30 gm 01/14/17 [Rx] Magic Mouthwash 10 ml PO Q3H PRN #240 ml 01/18/17 [Rx] Capecitabine [Xeloda] 1,000 mg PO QPM 01/20/17 [History] Capecitabine [Xeloda] 1,500 mg PO QAM 01/20/17 [History] Cyanocobalamin (Vitamin B-12) [Vitamin B12] 1,000 mcg PO DAILY 01/20/17 [History ] Lipase/Protease/Amylase [Creon Dr 24,000 Units Capsule] 1 tab PO QIDAC 01/20/17 [History] Loperamide [Imodium] 2 mg PO BID PRN 01/20/17 [History] Metoclopramide [Reglan] 10 mg PO ACHS 01/20/17 [History] Tamsulosin [Flomax] 0.4 mg PO DAILY 01/20/17 [History] metFORMIN [Glucophage] 1,000 mg PO DAILY 01/20/17 [History] Allergies No Known Allergies Allergy (Verified 10/19/16 10:16) - Constitutional Constitutional ROS PAL: decreased appetite, anorexia, weight loss - EENT Eyes: no discharge, no pain Ears: no ear discharge, no ear pain Ears, nose, mouth, throat: no facial pain, no hoarseness, no neck mass, no neck pain - Cardiovascular Cardiovascular ROS: no chest pain, no chest pain at rest - Respiratory Respiratory: no hemoptysis - Gastrointestinal Gastrointestinal: abdominal pain, change in stool character, hematochezia, loose stools, nausea, no constipation, no vomiting - Genitourinary Genitourinary ROS male: no urinary frequency, no urinary hesitancy, no urinary incontinence - Musculoskeletal Musculoskeletal ROS IM: no arthralgias, no back pain, no joint swelling - Integumentary ROS Integumentary: no rash, no skin pain, no skin ulcer - Neurological Neurological ROS: sensory deficit (Hearing defect), no burning sensations, no confusion, no convulsions - Psychiatric Psychiatric general PM: no difficulty concentrating, no homicidal ideation, no suicidal ideation - Endocrine Endocrine IM: other (Positive for diabetes) Palliative Care-Exam - Constitutional Vitals: Temp Pulse Resp BP Pulse Ox 97.9 F 84 16 134/53 96 01/21/17 07:15 01/21/17 07:15 01/21/17 07:15 01/21/17 07:15 01/21/17 07:15 General appearance: Present: no acute distress - Head Head Exam: Present: atraumatic, normal inspection - Eye Eye exam: Present: EOMI, normal appearance - ENT ENT exam: Present: mucous membranes moist. Absent: normal exam (Very hard of hearing) - Neck Neck exam: Present: full ROM - Respiratory Respiratory exam: Present: CTAB - GI/Abdominal Exam GI/Abdominal exam: Present: diminished bowel sounds (Mildly diminished), soft. Absent: tenderness - Extremities Exam Extremities exam: Present: normal inspection. Absent: pedal edema, tenderness ( Not noting any edema currently, however the patient states that it does seem to come and go. And he anticipates she will be swollen up shortly.) - Psychiatric Psychiatric exam: Present: normal affect, normal mood. Absent: agitated, anxious - Skin Skin exam: Present: dry, warm Internal Medicine - CN: Reslt - Labs CBC & Chem 7: 01/21/17 03:30 01/21/17 03:30 Labs: Short CBC 01/20/17 01/21/17 Range/Units 22:46 03:30 WBC 1.8 L (4.3-11.1) K/mcL Hgb 8.7 L 8.0 L (12.9-16.9) g/dL Hct 26.4 L 24.0 L (37.5-50.1) % Plt Count 58 L (140-400) K/mcL Neutrophils # 0.8 L (1.6-8.9) K/mcL BMP 01/21/17 03:30 Sodium 135 L Potassium 3.4 L Chloride 106 Carbon Dioxide 26 BUN 8 Creatinine 0.61 L Glucose 104 H Calcium 7.6 L - ABG Interpretation ABG results: PT/INR, D-dimer PT 13.5 Seconds (9.4-12.1) H 01/20/17 16:19 Consult Discharge Plan - Plan [facility]errals: [facility] [Primary Care Provider] - Palliative Quality Palliative Quality: Screen for Code Status: Yes, Screen for Goals of Care: Yes, Screen for Pain: Yes, If Pain Regimen Started, Initiate Bowel Regimen: Yes, Screen for Nausea/Vomitting: Yes
[2017-01-21 09:18] LABS: Amylase 39 Units/L (25-125)
[2017-01-21 09:20] LABS: Lipase < 10 Units/L (8-78)
[2017-01-21 10:53] LABS: Hematocrit 24.1 % (37.5-50.1); Hemoglobin 7.9 g/dL (12.9-16.9)
[2017-01-21] MEDS: Magic Mouthwash 10 ML UD Cup PO SCH ×2 (12:38→16:50)
[2017-01-21 16:14] LABS: Hematocrit 26.7 % (37.5-50.1); Hemoglobin 8.8 g/dL (12.9-16.9)
--- NOTE | 2017-01-21 17:08 | Internal Med Progress Note ---
Date of Encounter: 01/21/17 Time of Encounter: 10:00 - Assessment and plan (1) Pancolitis Current Visit: Yes Status: Acute Assessment and plan: Continue empiric antibiotic coverage with Cipro and Flagyl for suspected infectious colitis. C. difficile was negative. Additional etiologies include ischemic colitis versus chemotherapy related adverse reaction, less likely. (2) Type 2 diabetes mellitus Current Visit: Yes Status: Acute Assessment and plan: We will provide insulin sliding scale coverage. Qualifiers: Diabetes mellitus complication status: with unspecified complications Diabetes mellitus technician terminal and repeater insulin use: with technician terminal and repeater use Qualified Code(s) : E11.8 - Type 2 diabetes mellitus with unspecified complications; Z79.4 - manager long term care (current) use of insulin (3) Pancreatic cancer Current Visit: No Status: Acute Assessment and plan: He is undergoing chemotherapy. We will consult oncology and palliative care. Qualifiers: Pancreatic malignancy location: head of pancreas Qualified Code(s): C25.0 - Malignant neoplasm of head of pancreas (4) DVT prophylaxis Current Visit: Yes Status: Acute Assessment and plan: SCDs. - Subjective Interval history: Patient reports severe abdominal pain that started on Wednesday. Reports associated nausea, no recent vomiting. Pain is located in the left lower quadrant and is sharp and crampy. Better at rest. He has a history of recently diagnosed pancreatic cancer undergoing chemotherapy. - Constitutional Vitals: Temp Pulse Resp BP Pulse Ox 97.7 F 92 18 102/58 94 01/21/17 14:35 01/21/17 14:35 01/21/17 14:35 01/21/17 14:35 01/21/17 14:35 General appearance: Present: mild distress (Elderly pale ill appearing man), A& O X 3 - Respiratory Respiratory exam: Present: CTAB. Absent: accessory muscle use, rales, rhonchi, wheezes - Cardiovascular Cardiovascular exam: Present: RRR, +S1, +S2. Absent: diastolic murmur, gallop, rubs, systolic murmur - GI/Abdominal GI/Abdominal exam: Present: hypoactive bowel sounds, soft, tenderness, no peritoneal signs. Absent: distended - Extremities Exam Extremities exam: Present: warm, radial pulses palpable and symetrical. Absent : calf tenderness, cyanotic, pedal edema - Skin Skin exam: Present: dry, intact Internal Medicine: Result - Labs CBC & Chem 7: 01/21/17 15:50 01/21/17 03:30 Labs: Short CBC 01/20/17 01/21/17 01/21/17 Range/Units 22:46 03:30 10:45 WBC 1.8 L (4.3-11.1) K/mcL Hgb 8.7 L 8.0 L 7.9 L (12.9-16.9) g/dL Hct 26.4 L 24.0 L 24.1 L (37.5-50.1) % Plt Count 58 L (140-400) K/mcL Neutrophils # 0.8 L (1.6-8.9) K/mcL 01/21/17 Range/Units 15:50 WBC (4.3-11.1) K/mcL Hgb 8.8 L (12.9-16.9) g/dL Hct 26.7 L (37.5-50.1) % Plt Count (140-400) K/mcL Neutrophils # (1.6-8.9) K/mcL BMP 01/21/17 03:30 Sodium 135 L Potassium 3.4 L Chloride 106 Carbon Dioxide 26 BUN 8 Creatinine 0.61 L Glucose 104 H Calcium 7.6 L - ABG Interpretation ABG results: PT/INR, D-dimer PT 13.5 Seconds (9.4-12.1) H 01/20/17 16:19 Consult Discharge Plan - Plan [facility]errals: [facility] [Primary Care Provider] -
[2017-01-21] MEDS ORDERED: Potassium Chloride Elixir 20 MEQ/15 ML UDC PO ONE (17:15)
[2017-01-21] MEDS ORDERED: Magnesium Sulfate 4 GM in D5% in Water 100 ML IVPB ONE (17:15)
--- NOTE | 2017-01-21 18:08 | Oncology Inp Consult Note ---
Date of Encounter: 01/22/17 Time of Encounter: 18:06 Assessment and Plan (1) Pancolitis Status: Acute Assessment and plan: Likely from chemotherapy. Mostly Xeloda. C. difficile negative Currently on IV Flagyl and Cipro His brother had DPD deficiency and had severe mucositis with Xeloda. 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 In people with DPD deficiency that drug concentration gets higher We will give him a break from chemotherapy. For cycle 2 chemotherapy will dose reduce Xeloda drastically area I had a long discussion with his daughter over the phone. Clinically he is doing well at this time. We will watch him closely with subsequent chemotherapy drugs. (2) Pancreatic cancer Status: Acute Assessment and plan: Post Whipple surgery. Positive margin in [address] positive which puts him at a high risk Finished cycle one chemotherapy. Qualifiers: Pancreatic malignancy location: head of pancreas Qualified Code(s): C25.0 - Malignant neoplasm of head of pancreas (3) Pancytopenia due to chemotherapy Status: Acute Assessment and plan: Neutropenia is mild at 800. But with his colitis we will watch neutrophil counts closely Thrombocytopenia later count 58K. Mostly from Gemzar but Xeloda may be contributing to some of it Anemia. Current hemoglobin around 7.6 Transfuse as clinically indicated - Data of Consult Patient: known to practice within the last 3 years Requesting Physician: Mal Salazar MD Primary Care Provider: PCP [facility] - Consult Narrative Reason for consult: Pancolitis History of present illness: Mr. Thurston is a 71 year old male with hypertension, hyperlipidemia, type 2 diabetes, COPD, pancreatic cancer status post Whipple and on chemotherapy presented to the emergency department today with complaints of abdominal pain and bloody diarrhea. CT abdomen and pelvis with contrast 01/20/2017 showed knutson colitis circumferential wall thickening and pericolonic stranding with extensive atherosclerosis with miD SMA severe stenosis. But the patient's colitis is not felt related to ischemia Oncological history Diagnosis: T3, N1 MX stage IIB pancreatic adenocarcinoma post Whipple surgery Obstructive jaundice developed on August 2016 with steatorrhea. Bilirubin 19.6. MRCP on 09/29/2016 showed head of pancreas tumor Board 2 cm. No major liver lesion or gallbladder lesion. Dr. Jaffe did ERCP and EUS 10/21/2016. He was biopsy from head of pancreas and common bile duct showed cells suspicious for malignancy CT abdomen and pelvis and CT chest [facility] on 11/20/2016 showed 2.3 cm mass in the head of pancreas with dilated peripancreatic ducts were no obvious liver lesion. CT chest showed indeterminate nodular lesion right upper lobe and subpleural small nodule. Extensive emphysema. No thoracic lymphadenopathy Underwent Whipple surgery 11/24/[address] Coppola [facility] with an eventful postop course. Pathology report Tumor size 3.4 x 2.1 x 2 cm Peripancreatic soft tissue involvement Distal pancreatic margin focally positive breast of margins negative 5/36 lymph nodes involved ( likely involved by direct extension) Well differentiated adenocarcinoma grade 1 and solid configuration focal suspicious lymphovascular invasion. Also perineural invasion present CT abdomen and pelvis with contrast 12/03/2016 at [facility] showed status post Whipple surgery with edema of small bowel loops. Also. Moderate bibasal pleural effusion periportal edema off the liver CT abdomen and pelvis with IV contrast also showed some small bowel edema otherwise negative He does have some urinary retention and was evaluated by urology Also diabetes with blood glucose better controlled now Adjuvant chemotherapy Treatment plan gemzar day 1,8 and 15 with xeloda 1500mg the morning and 1 g in the evening days 1-14 , every 21 days for [address] Akhtar radiation oncology. Plan is to consider chemoradiation after [address] Akhtar will reevaluate after 2 cycles of chemotherapy for radiation consideration given positive margin and multiple lymph node involvement [place] on 01/08/17 Treatment Summary: 01/08/17 Gemzar C1 D1 01/15/17 Gemzar C1 D8 He also completed cycle 1 Xeloda as mentioned. Has no diarrhea or skin problems on 01/14/2017 . But subsequently developed severe diarrhea as mentioned Past Med Surg Social Fam HX - Past Medical History Medical history: arthritis, cancer, COPD, diabetes, hyperlipidemia, hypertension , other Psychiatric history: no psych history - Past Surgical History Surgical History: appendectomy, herniorrhaphy, other - Social History Smoking Status: Current every day smoker Packs per day: 1 Smokeless Tobacco Status: No Alcohol use: none Drug use: none - Family History Brother Living Status: Cause of : Cancer Hx Family Cancer: Yes Medications and Allergies Aspirin 81 mg PO DAILY 10/19/16 [History] Atorvastatin Calcium [Lipitor] 20 mg PO DAILY 10/19/16 [History] Cholecalciferol (Vitamin D3) [Vitamin D3] 2,000 unit PO DAILY 10/19/16 [History] Insulin Glargine [Lantus] 25 - 30 unit SQ DAILY 10/19/16 [History] Lisinopril [Zestril] 5 mg PO DAILY 10/19/16 [History] Furosemide [Lasix] 20 mg PO DAILY 12/10/16 [History] Omeprazole [PriLOSEC] 20 mg PO DAILY 12/10/16 [History] Ondansetron HCl [Zofran] 4 mg PO Q4HR #30 tablet 12/23/16 [Rx] Prochlorperazine Maleate [Compazine] 10 mg PO Q6H PRN #30 tablet 12/23/16 [Rx] Lidocaine/Prilocaine [Emla] 1 appl TP AD #30 gm 01/14/17 [Rx] Magic Mouthwash 10 ml PO Q3H PRN #240 ml 01/18/17 [Rx] Capecitabine [Xeloda] 1,000 mg PO QPM 01/20/17 [History] Capecitabine [Xeloda] 1,500 mg PO QAM 01/20/17 [History] Cyanocobalamin (Vitamin B-12) [Vitamin B12] 1,000 mcg PO DAILY 01/20/17 [History ] Lipase/Protease/Amylase [Creon Dr 24,000 Units Capsule] 1 tab PO QIDAC 01/20/17 [History] Loperamide [Imodium] 2 mg PO BID PRN 01/20/17 [History] Metoclopramide [Reglan] 10 mg PO ACHS 01/20/17 [History] Tamsulosin [Flomax] 0.4 mg PO DAILY 01/20/17 [History] metFORMIN [Glucophage] 1,000 mg PO DAILY 01/20/17 [History] Allergies No Known Allergies Allergy (Verified 10/19/16 10:16) Review of systems: His bloody diarrhea has resolved in the last 3-4 hours. He is on clear liquids and that down. Denied abdominal pain. No nausea or vomiting at this time Oncology - Exam - Constitutional Vitals: Temp Pulse Resp BP Pulse Ox 97.7 F 92 18 102/58 94 01/21/17 14:35 01/21/17 14:35 01/21/17 14:35 01/21/17 14:35 01/21/17 14:35 Exam: GENERAL: Alert and oriented, well appearing. Very hard of hearing Mental Status: Affect appropriate for circumstances HEENT: Sclerae anicteric. No mucositis or thrush. No other oral or pharyngeal lesions or erythema. Skin: No rashes or petechiae. No evidence of skin malignancy Lymph nodes: No cervical, supraclavicular, axillary, or inguinal adenopathy. Lungs: Air entry normal with normal breath sounds. No rhonchi or wheezing Cardiovascular: Regular rate and rhythm. No skipped beats Abdomen: Soft, no major tenderness at this time and bowel sounds are active Extremities: No edema. No calf swelling or tenderness. No joint deformity. Neurologic: Alert, cranial nerves II-XII intact; Limited exam due to patient condition but no focal deficits Oncology - Results - Labs Labs: Short CBC 01/20/17 01/21/17 01/21/17 Range/Units 22:46 03:30 10:45 WBC 1.8 L (4.3-11.1) K/mcL Hgb 8.7 L 8.0 L 7.9 L (12.9-16.9) g/dL Hct 26.4 L 24.0 L 24.1 L (37.5-50.1) % Plt Count 58 L (140-400) K/mcL Neutrophils # 0.8 L (1.6-8.9) K/mcL 01/21/17 Range/Units 15:50 WBC (4.3-11.1) K/mcL Hgb 8.8 L (12.9-16.9) g/dL Hct 26.7 L (37.5-50.1) % Plt Count (140-400) K/mcL Neutrophils # (1.6-8.9) K/mcL BMP 01/21/17 03:30 Sodium 135 L Potassium 3.4 L Chloride 106 Carbon Dioxide 26 BUN 8 Creatinine 0.61 L Glucose 104 H Calcium 7.6 L Consult Discharge Plan - Plan [facility]errals: [facility] [Primary Care Provider] -
[2017-01-21] MEDS: Magnesium Sulfate 2 GM in D5% in Water 100 ML IVPB SCH ×2 (18:12→20:24)
[2017-01-21 21:33] LABS: Hematocrit 25.6 % (37.5-50.1); Hemoglobin 8.5 g/dL (12.9-16.9)
[2017-01-22] MEDS: MetroNIDAZOLE 500 MG/100 ML 500 MG/100 ML BAG IVPB SCH ×2 (00:39→09:36)
[2017-01-22 05:48] LABS: Mean Corpuscular Volume 86.6 fL (83.0-100.0); Red Cell Distribution Width 13.3 % (11.5-14.5)
[2017-01-22 05:50] LABS: Eosinophils # 0.1 K/mcL (0.0-0.6); Eosinophils % 4.5 %; Hematocrit 22.7 % (37.5-50.1); Hemoglobin 7.6 g/dL (12.9-16.9); Mean Corpuscular HGB Conc 33.5 g/dL (31.6-35.5); Monocytes # 0.1 K/mcL (0.0-1.3); Monocytes % 4.5 %; Neutrophils # 0.8 K/mcL (1.6-8.9); Red Blood Count 2.62 M/mcL (4.19-5.50)
[2017-01-22 05:54] LABS: Platelet Count 53 K/mcL (140-400)
[2017-01-22 06:11] LABS: BUN/Creatinine Ratio 10 (6-26); Blood Urea Nitrogen 7 mg/dL (8-26); Calcium 7.4 mg/dL (8.6-10.8); Carbon Dioxide 25 mEq/L (19-29); Chloride 107 mEq/L (98-109); Glucose 111 mg/dL (70-99); Osmolality,Calculated 277 (280-300); Potassium 3.4 mEq/L (3.5-4.5); Sodium 134 mEq/L (136-145); eGFR For African Americans > 60 (> 60); eGFR For Non-African Americans > 60 (> 60)
[2017-01-22 06:27] LABS: Platelet Estimate Decreased (Normal); Reactive Lymphocytes Present (Not Present)
[2017-01-22] MEDS: Insulin LISPRO 300 UNITS/3 ML VIAL SQ SCH ×3 (08:37→17:50)
[2017-01-22] MEDS: Magic Mouthwash 10 ML UD Cup PO SCH ×2 (08:37→12:37)
--- NOTE | 2017-01-22 08:50 | Palliative Progress Note ---
Date of Encounter: 01/22/17 Time of Encounter: 07:30 - Assessment and plan (1) Pancolitis Current Visit: Yes Status: Acute Assessment and plan: The patient feels that he is getting better, I would like to advance his diet. He states that he is hungry and feels that only with some regular food can he get better. He states he does like Jell-O, however he is getting sick of having it 3 times a day. (2) Goals of care, counseling/discussion Current Visit: Yes Status: Acute Assessment and plan: CODE STATUS is clear DNR CCA, DNI. Tells me that he has filled out medical power of insurance attorney and living will, over the [place] copies on the chart at this time and no family is present. Since the patient does get most of his care at the [place] of the paperwork may be there. The patient's short-term goal of care is to have his diet increased, and she is getting tired of Jell-O and he would very much like to go home as soon as possible as there is a great deal of family coming in today and tomorrow for the January. (3) Abdominal pain with vomiting Current Visit: Yes Status: Acute Assessment and plan: The patient denies any further vomiting, he states that his abdominal pain is under good control with the Vicodin. He wishes to increase his diet that is at all possible. (4) Abdominal pain Current Visit: No Status: Acute Assessment and plan: The patient states this is much better today, he would like to advance his diet. Would also like to go home as soon as possible. Qualifiers: Abdominal location: upper abdomen, unspecified Qualified Code(s): R10.10 - Upper abdominal pain, unspecified (5) Pancreatic cancer Current Visit: No Status: Acute Assessment and plan: Under care for stage IIB pancreatic cancer with the cancer center. Patient is unhappy with the GI problems, but he is interested in continuing the chemotherapy as long as his bowels will be able to tolerate it. I noted in the oncology note, that there will be a rest given on the therapy in general, and then a decreased dose of or elimination of the Xeloda. Qualifiers: Pancreatic malignancy location: head of pancreas Qualified Code(s): C25.0 - Malignant neoplasm of head of pancreas (6) Moderate protein-calorie malnutrition Current Visit: No Status: Chronic Assessment and plan: The patient states that he is more than willing to eat, however he is still on a clear liquid diet. He wishes to have this advanced as soon as is reasonably possible. Of note the patient is feeling much better and would very much like to go home as soon as that is centered okay. - Time Spent With Patient Total time spent is greater than 50% in coordination of care (as documented) at patient's floor/unit and/or counseling patient: - Subjective Interval history: The patient reports feeling much better today. He feels that the Magic mouthwash Basilio prescribed is doing quite well for him, he also states that he is getting very tired of a clear liquid diet would like to eat some regular food. He states that he likes Jell-O, however he is getting sick of it. He feels he can tolerate increasing the diet. Is under good control at this time. - Constitutional Vitals: Abnormal lab results WBC 2.0 K/mcL (4.3-11.1) L 01/22/17 04:59 RBC 2.62 M/mcL (4.19-5.50) L 01/22/17 04:59 Hgb 7.6 g/dL (12.9-16.9) L 01/22/17 04:59 Hct 22.7 % (37.5-50.1) L 01/22/17 04:59 Plt Count 53 K/mcL (140-400) L 01/22/17 04:59 Neutrophils # 0.8 K/mcL (1.6-8.9) L 01/22/17 04:59 Reactive Lymphocytes Present (Not Present) A 01/22/17 04:59 Platelet Estimate Decreased (Normal) L 01/22/17 04:59 PT 13.5 Seconds (9.4-12.1) H 01/20/17 16:19 Sodium 134 mEq/L (136-145) L 01/22/17 04:59 Potassium 3.4 mEq/L (3.5-4.5) L 01/22/17 04:59 BUN 7 mg/dL (8-26) L 01/22/17 04:59 Creatinine 0.68 mg/dL (0.72-1.25) L 01/22/17 04:59 Glucose 111 mg/dL (70-99) H 01/22/17 04:59 POC Glucose 163 (58-89) H 01/22/17 08:12 Calculated Osmolality 277 (280-300) L 01/22/17 04:59 Calcium 7.4 mg/dL (8.6-10.8) L 01/22/17 04:59 Serum Total Protein 5.3 g/dL (6.0-8.3) L 01/20/17 16:19 Albumin 2.3 g/dL (3.5-5.0) L 01/20/17 16:19 Albumin/Globulin Ratio 0.8 (1.1-2.2) L 01/20/17 16:19 Stool Occult Blood Positive (Negative) A 01/20/17 20:14 General appearance: Present: no acute distress - Head Head exam: Present: atraumatic, normal inspection - Eye Eye exam: Present: normal appearance - ENT ENT exam: Present: mucous membranes moist - Neck Neck exam: Present: full ROM - Respiratory Respiratory exam: Present: CTAB - Cardiovascular Cardiovascular exam: Present: RRR - GI/Abdominal GI/Abdominal exam: Present: normal bowel sounds, soft. Absent: tenderness (No pain on mild palpation.) - Extremities Exam Extremities exam: Absent: pedal edema (He states his feet do swell up a little bit later in the day. Over there is minimal if any edema at this time.) - Neurological Exam Neurological exam: Present: alert, oriented X3 (The patient is extremely hard of hearing, however he continued to his left ear he can carry on a conversation. ) - Psychiatric Psychiatric exam: Present: normal affect, normal mood. Absent: agitated, anxious - Skin Skin exam: Present: dry, warm Palliative Quality Palliative Quality: Screen for Code Status: Yes, Screen for Goals of Care: Yes, Screen for Pain: Yes, If Pain Regimen Started, Initiate Bowel Regimen: Yes, Screen for Nausea/Vomitting: Yes - Labs CBC & Chem 7: 01/22/17 04:59 01/22/17 04:59 Labs: Laboratory Results - last 24 hr 01/21/17 01/21/17 01/21/17 09:00 10:45 11:18 WBC RBC Hgb 7.9 L Hct 24.1 L MCV MCH MCHC RDW Plt Count MPV Immature Gran % Seg Neutrophils % Lymphocytes % Monocytes % Eosinophils % Basophils % Neutrophils # Lymphocytes # Monocytes # Eosinophils # Basophils # Reactive Lymphocytes Platelet Estimate Sodium Potassium Chloride Carbon Dioxide BUN Creatinine Est GFR ( Amer) Est GFR (Non-Af Amer) BUN/Creatinine Ratio Glucose POC Glucose 150 H Calculated Osmolality Calcium Magnesium Amylase 39 Lipase < 10 01/21/17 01/21/17 01/21/17 15:50 17:03 21:25 WBC RBC Hgb 8.8 L 8.5 L Hct 26.7 L 25.6 L MCV MCH MCHC RDW Plt Count MPV Immature Gran % Seg Neutrophils % Lymphocytes % Monocytes % Eosinophils % Basophils % Neutrophils # Lymphocytes # Monocytes # Eosinophils # Basophils # Reactive Lymphocytes Platelet Estimate Sodium Potassium Chloride Carbon Dioxide BUN Creatinine Est GFR ( Amer) Est GFR (Non-Af Amer) BUN/Creatinine Ratio Glucose POC Glucose 156 H Calculated Osmolality Calcium Magnesium Amylase Lipase 01/21/17 01/22/17 01/22/17 21:52 04:59 04:59 WBC 2.0 L RBC 2.62 L Hgb 7.6 L Hct 22.7 L MCV 86.6 MCH 29.0 MCHC 33.5 RDW 13.3 Plt Count 53 L MPV 10.0 Immature Gran % 0.0 Seg Neutrophils % 40.0 Lymphocytes % 51.0 Monocytes % 4.5 Eosinophils % 4.5 Basophils % 0.0 Neutrophils # 0.8 L Lymphocytes # 1.0 Monocytes # 0.1 Eosinophils # 0.1 Basophils # 0.0 Reactive Lymphocytes Present A Platelet Estimate Decreased L Sodium 134 L Potassium 3.4 L Chloride 107 Carbon Dioxide 25 BUN 7 L Creatinine 0.68 L Est GFR ( Amer) > 60 Est GFR (Non-Af Amer) > 60 BUN/Creatinine Ratio 10 Glucose 111 H POC Glucose 209 H Calculated Osmolality 277 L Calcium 7.4 L Magnesium 2.0 Amylase Lipase 01/22/17 08:12 WBC RBC Hgb Hct MCV MCH MCHC RDW Plt Count MPV Immature Gran % Seg Neutrophils % Lymphocytes % Monocytes % Eosinophils % Basophils % Neutrophils # Lymphocytes # Monocytes # Eosinophils # Basophils # Reactive Lymphocytes Platelet Estimate Sodium Potassium Chloride Carbon Dioxide BUN Creatinine Est GFR ( Amer) Est GFR (Non-Af Amer) BUN/Creatinine Ratio Glucose POC Glucose 163 H Calculated Osmolality Calcium Magnesium Amylase Lipase - ABG Interpretation ABG results: PT/INR, D-dimer PT 13.5 Seconds (9.4-12.1) H 01/20/17 16:19 Consult Discharge Plan - Plan [facility]errals: [facility] [Primary Care Provider] -
[2017-01-22] MEDS: Nicotine 21 MG PATCH.TD24 TD SCH (09:35)
[2017-01-22] MEDS: Cyanocobalamin (B-12) 1,000 MCG TABLET PO SCH (09:38)
[2017-01-22] MEDS ORDERED: Furosemide 20 MG/2 ML VIAL IVP ONE (10:03)
[2017-01-22] MEDS ORDERED: 0.9 % Sodium Chloride 250 ML ONE (12:01)
--- NOTE | 2017-01-22 16:03 | Discharge Summary ---
Date of Encounter: 01/26/17 Time of Encounter: 15:58 - Discharge Diagnosis (1) Pancolitis Priority: Primary Status: Acute (2) Type 2 diabetes mellitus Priority: Secondary Status: Acute Qualifiers: Diabetes mellitus complication status: with unspecified complications Diabetes mellitus emt intermediate insulin use: with custodial use Qualified Code(s) : E11.8 - Type 2 diabetes mellitus with unspecified complications; Z79.4 - detention (current) use of insulin (3) Pancreatic cancer Priority: Secondary Status: Acute Qualifiers: Pancreatic malignancy location: head of pancreas Qualified Code(s): C25.0 - Malignant neoplasm of head of pancreas (4) DVT prophylaxis Priority: Secondary Status: Acute - Discharge Medications Prescriptions: levoFLOXacin [Levaquin] 750 mg PO DAILY #5 tablet metroNIDAZOLE [Flagyl] 500 mg PO TID #25 tablet Home Medications: Aspirin 81 mg PO DAILY 10/19/16 [History] Atorvastatin Calcium [Lipitor] 20 mg PO DAILY 10/19/16 [History] Cholecalciferol (Vitamin D3) [Vitamin D3] 2,000 unit PO DAILY 10/19/16 [History] Insulin Glargine [Lantus] 25 - 30 unit SQ DAILY 10/19/16 [History] Lisinopril [Zestril] 5 mg PO DAILY 10/19/16 [History] Furosemide [Lasix] 20 mg PO DAILY 12/10/16 [History] Omeprazole [PriLOSEC] 20 mg PO DAILY 12/10/16 [History] Ondansetron HCl [Zofran] 4 mg PO Q4HR #30 tablet 12/23/16 [Rx] Prochlorperazine Maleate [Compazine] 10 mg PO Q6H PRN #30 tablet 12/23/16 [Rx] Lidocaine/Prilocaine [Emla] 1 appl TP AD #30 gm 01/14/17 [Rx] Magic Mouthwash 10 ml PO Q3H PRN #240 ml 01/18/17 [Rx] Cyanocobalamin (Vitamin B-12) [Vitamin B12] 1,000 mcg PO DAILY 01/20/17 [History ] Lipase/Protease/Amylase [Creon Dr 24,000 Units Capsule] 1 tab PO QIDAC 01/20/17 [History] Tamsulosin [Flomax] 0.4 mg PO DAILY 01/20/17 [History] metFORMIN [Glucophage] 1,000 mg PO DAILY 01/20/17 [History] levoFLOXacin [Levaquin] 750 mg PO DAILY #5 tablet 01/22/17 [Rx] metroNIDAZOLE [Flagyl] 500 mg PO TID #25 tablet 01/22/17 [Rx] Allergies/Adverse Reactions: Allergies No Known Allergies Allergy (Verified 10/19/16 10:16) Date of admission: 01/20/17 21:10 Primary care physician: PCP [place] Consults: 01/20/17 21:31 Consult to Palliative Care [CONS] Routine Comment: Consulting Provider: Palliative Care Day Reason for Consult: Pancreatic cancer on chemo. Patient thinking about discontinuing chemo. discussion of goals of care Call Completed: No 01/21/17 09:09 Consult to Oncology Hematology [CONS] Routine Consulting Provider: Helen Truong Reason for Consult: established patient, on chemo for pancreatic cancer. spoke with david maldonado this am about this, consider forstopping xeloda. consult at patient request. He would like to continue chemo if gi will clear up Time Notified: 09:00 Call Completed: Yes 01/21/17 10:57 dietary consult [Consult to Nutrition] [CONS] Routine Comment: pancolitis and pancreatic cancer Consulting Provider: NUTRITION Reason for Dietary Consult: PO Supplementation - Patient Status Disposition: Home, Self-Care Condition: Fair Functional capacity at discharge: independent ambulation Overall status at discharge: patient is progressing back to baseline - Discharge Instructions Instructions: Acute Diarrhea (GEN), Acute Abdominal Pain (GEN) Follow Up With: Helen Truong MD [Partnered Physician] - 02/02/17 11:10 am [place],PCP [Primary Care Provider] - 01/25/17 12:30 pm - Diet and Activity Activity: ambulate only with your walker Diet: diabetic diet, low salt diet Hospital course: Mr. Thurston is a 71 year old male with past medical history significant for hypertension and recently diagnosed pancreatic cancer undergoing chemotherapy who presented to the hospital for evaluation of abdominal pain and rectal bleed. He was diagnosed with pancolitis and was admitted to the medical service. He was treated with Cipro and Flagyl. Oncology was consulted. Upon their evaluation there was high suspicion of chemotherapy related pancolitis. The patient was initially neutropenic. He was given Neupogen and his white count increased appropriately. Patient will be discharged home to complete a course of Levaquin and Flagyl. He was advised to follow-up with PCP and oncologist. - Time Spent with Patient Total time spent providing and/or coordinating discharge services: Greater than 30 minutes - Constitutional Vitals: Temp Pulse Resp BP Pulse Ox 97.6 F 106 18 129/59 96 01/22/17 13:16 01/22/17 13:16 01/22/17 13:16 01/22/17 13:16 01/22/17 13:16 General appearance: Present: mild distress (Elderly pale ill appearing man), A& O X 3 - Respiratory Respiratory exam: Present: CTAB. Absent: accessory muscle use, rales, rhonchi, wheezes - Cardiovascular Cardiovascular exam: Present: RRR, +S1, +S2. Absent: diastolic murmur, gallop, rubs, systolic murmur - GI/Abdominal GI/Abdominal exam: Present: normal bowel sounds, soft, no peritoneal signs. Absent: distended, tenderness - Extremities Exam Extremities exam: Present: warm, radial pulses palpable and symetrical. Absent : calf tenderness, cyanotic, pedal edema - Skin Skin exam: Present: dry, intact - VTE Documentation of Mechanical Device: Intermittent pneumatic compression device
[2017-01-22 16:07] VITALS: BP 168/74
[2017-01-22 17:12] LABS: Basophils % 0.4 %; Eosinophils # 0.1 K/mcL (0.0-0.6); Immature Granulocytes % 0.4 % (0-4); Lymphocytes # 1.1 K/mcL (0.6-4.6); Mean Corpuscular HGB Conc 33.3 g/dL (31.6-35.5); Mean Corpuscular Hemoglobin 28.7 pg (28.0-33.3); Mean Platelet Volume 9.3 fL (9.4-12.4); Monocytes # 0.1 K/mcL (0.0-1.3); Monocytes % 5.9 %; Neutrophils # 1.1 K/mcL (1.6-8.9); Red Blood Count 3.49 M/mcL (4.19-5.50); Red Cell Distribution Width 13.3 % (11.5-14.5); Segmented Neutrophils % 44.3 %
[2017-01-22 17:34] LABS: Platelet Count 46 K/mcL (140-400)
== END 2017-01-22 18:35 | disposition home or self-care (01) | DRG 385 ==
LOC: EMEROO 14:23 → 3ANU 14:23 → SUATTDRO 21:10 → 3ANU 21:14
PROVIDERS: ADMIT Internal Medicine; ATTEND Internal Medicine

== ENCOUNTER 2019-02-18 20:24 | Observation (INO) ==
--- NOTE | 2019-02-18 20:37 | Emergency Department Note ---
Disposition Clinical Impression: Hypoglycemia, Hypokalemia Hypertension Qualifiers: Hypertension type: essential hypertension Qualified Code(s): I10 - Essential (primary) hypertension Disposition: Admitted As Inpatient Condition: Fair Time of Disposition: 22:19 General Adult HPI - General Chief complaint: ED Recheck/Abnormal Lab/Rx Stated complaint: Low Sugar Time Seen by Provider: 02/18/19 20:25 Source: patient, EMS Mode of arrival: EMS Limitations: other (hard of hairing) Nursing Notes Reviewed: Yes Vital Signs Reviewed: Yes - History of Present Illness HPI Narrative: Pt is a 73 yo male here with the chief complaint of hypoglycemia. The patient's stated that he was not acting normally and called EMS. States he has a chronic right-sided facial droop. His glucose was initially in the low 20s and went up with Dextrose via EMS. Recheck in EMS was in the 200s. It then went down to 100 via EMS. She reports that the patient does have a history of type 1 diabetes and has an insulin pump in place, does have a history of pancreatic cancer. He was unable to give very much history due to his baseline hearing impairment and that he has no pain, shortness of breath, abdominal pain, nausea vomiting or diarrhea, venous. He states that he is eating not becoming hypoglycemic due to lack of food. States that he feels weak all over but is unable to clearly give a history surrounding this. ROS limited due to the patient's inability to hear. Pt Subjective Complaint: low blood sugar - Related Data Home Medications Medication Instructions Recorded Confirmed Aspirin 81 mg PO DAILY 10/19/16 02/18/19 Atorvastatin Calcium [Lipitor] 20 mg PO DAILY 10/19/16 02/18/19 Cholecalciferol (Vitamin D3) 1,000 unit PO DAILY 10/19/16 02/18/19 [Vitamin D3] Insulin Glargine [Lantus] 25 - 30 unit SQ DAILY 10/19/16 02/18/19 Lisinopril [Zestril] 40 mg PO DAILY 10/19/16 02/18/19 metFORMIN [Glucophage] 500 mg PO DAILY 01/20/17 02/18/19 Furosemide [Lasix] 20 mg PO DAILY 08/27/17 02/18/19 Garlic [Odorless Garlic] 1,000 mg PO DAILY 08/27/17 02/18/19 Cyanocobalamin (Vitamin B-12) 5,000 mcg PO DAILY 02/18/19 02/18/19 [Vitamin B12] Levothyroxine Sodium [Levoxyl] 50 mcg PO DAILY 02/18/19 02/18/19 Pregabalin [Lyrica] 100 mg PO BID 02/18/19 02/18/19 Previous Rx's Medication Instructions Recorded Potassium Chloride [K-Tab ER] 20 meq PO DAILY #20 tablet.er 02/02/17 Lidocaine/Prilocaine [Emla] 1 appl TP TID #30 gm 09/10/17 Ascorbic Acid [Vitamin C] 500 mg PO DAILY #30 tablet 12/01/18 Ferrous Sulfate [Iron] 325 mg PO DAILY #30 tablet 12/01/18 Allergies Allergy/AdvReac Type Severity Reaction Status Date / Time No Known Allergies Allergy Verified 02/18/19 20:30 Review of Systems: Review of systems is limited due to the patient's hearing impairment Constitutional: denies fever, chills HEENT: denies blurry vision, + hearing loss Cardio: denies chest pain, palpiltations Lungs: denies SOB, cough, sputum production GI: denies N/V/D, denies abdominal pain : denies dysuria, hematuria Neuro: deneis numbness or tingling, denies dizziness Skin: + insulin pump Lymph: denies swelling Allergy: denies seasonal allergies or food allergies All systems ED: reviewed and negative except as stated. Review of Systems: As Per HPI Past Medical History - Past Medical History Attestation: Yes The following information was validated with the patient. Medical history: Reports: arthritis, cancer, COPD, diabetes, hyperlipidemia, hypertension, other Surgical history: Reports: appendectomy, herniorrhaphy, other Psychiatric history: Reports: no psych history - Social History Smoking Status: Current every day smoker Smokeless Tobacco Status: No Alcohol use: Reports: none Drug use: Reports: none Physical Exam General: disheveled patient lying in bed who appears non-toxic, no apparent distress Head: Atraumatic, normocephalic. Eyes: Sclera icteric. EOMI. Pupils equal size. ENT: Mucous membranes moist. Heart: Regular rate and rhythm without appreciable murmur. S1S2 CTA Neck: no JVD Lungs: Normal respiratory pattern without distress, lungs clear to auscultation b/l. No wheeze, rhonchi, rales or stridor Abdomen: Soft, non-tender, non-distended, no guarding or peritoneal signs. No bruising noted to the abdomen. Insulin pump present. Skin: Warm and dry without rash. Neurologic: Awake and alert with normal mental status. Pupils are equal. Moves all extremities equally well. No focal deficits or lateralizing signs. Follows command. Strength intact. Psychiatric: Mood and affect appropriate. Musculoskeletal: Mild trace pitting peripheral edema. No asymmetrical swelling, no calf tenderness - General Limitations: physical limitation (hearing difficulty) General appearance: in no apparent distress Course Course Narrative: Here with the chief complaint of hypoglycemia. The patient's stated that he was not acting normally and called EMS. His glucose was initially in the low 20s and went up with therapy. Recheck in the emergency room was 96. We will obtain basic labs to rule out any acute source of infection including a chest x- ray and a urinalysis. Will monitor patient in the emergency room for any further hypoglycemic events and if needed will admit the patient for further evaluation. Disposition is pending at this time. - Reevaluation(s) Reevaluation #1: Repeat accucheck 37, will give the pt amp of dextrose and some food. Removing insulin pump. informed that he will be admitted. PRODUCTION SUPERVISOR TRAINEE instructed to repeat glucose in 45 min. Time: 21:44 Reevaluation #2: Troponin added to orders. Nurse instructed to repeat BP. Time: 21:54 Reevaluation #3: Repeat glucose 137 after food/dextrose/insulin pump removed Time: 22:21 - Consultations Consultation #1: Dr Maret accepted the patient for admission Time: 22:21 Vital Signs Temperature 97.7 F 02/18/19 20:30 Pulse Rate 86 02/18/19 20:30 Respiratory Rate 20 02/18/19 20:30 Blood Pressure 195/73 02/18/19 20:30 O2 Sat by Pulse Oximetry 97 02/18/19 20:30 Temperature 97.8 F 02/19/19 06:46 Pulse Rate 95 02/19/19 06:46 Respiratory Rate 16 02/19/19 06:46 Blood Pressure 176/76 02/19/19 06:46 O2 Sat by Pulse Oximetry 95 02/19/19 06:46 Oxygen Delivery Oxygen Delivery Room Air Medical Decision Making - [facility] Narrative Medical decision making narrative: Pt presented Via EMS with a chief complaint of weakness. His glucose was in the 20s while at home per the and he was found slumped over. Patient arrived and his glucose was in the 90s. He had basic labs which were noncontributory other than a potassium of 3.4, which was replaced with oral potassium. The patient refused to urinate multiple times and was given fluids as well as by mouth fluids. His repeat Accu-Chek was 37. At this time his insulin pump was removed and he was given an amp of dextrose as well as food including crackers and peanut butter and orange juice. Was noted to be hypertensive throughout his stay and troponin was added on to labs. At this time will not provide any medication to treat hypertension. Informed the that we would be admitting the patient for further workup and evaluation, as now his insulin pump has been removed. 2210: Glucose was 137. Troponin <0.03. Patient was accepted for admission by Dr. Marte. - Medical Records Medical records reviewed: Yes I reviewed the patient's medical records. - Lab Data Lab results reviewed: Yes I reviewed the patient's lab results. Result diagrams: 02/19/19 04:31 02/19/19 04:31 Lab Results 02/18/19 02/18/19 02/18/19 Range/Units 20:29 20:38 20:38 WBC 8.9 (4.3-11.1) K/mcL RBC 4.03 L (4.19-5.50) M/mcL Hgb 11.0 L (12.9-16.9) g/dL Hct 35.3 L (37.5-50.1) % MCV 87.6 (83.0-100.0) fL MCH 27.3 L (28.0-33.3) pg MCHC 31.2 L (31.6-35.5) g/dL RDW 16.7 H (11.5-14.5) % Plt Count 171 (140-400) K/mcL MPV 11.1 (9.4-12.4) fL Immature Gran % 0.6 (0-4) % Seg Neutrophils % 80.6 % Lymphocytes % 10.0 % Monocytes % 7.5 % Eosinophils % 1.0 % Basophils % 0.3 % Neutrophils # 7.2 (1.6-8.9) K/mcL Lymphocytes # 0.9 (0.6-4.6) K/mcL Monocytes # 0.7 (0.0-1.3) K/mcL Eosinophils # 0.1 (0.0-0.6) K/mcL Basophils # 0.0 (0.0-0.2) K/mcL Sodium 140 (136-145) mEq/L Potassium 3.2 L (3.5-5.1) mEq/L Chloride 113 H (98-107) mEq/L Carbon Dioxide 20 L (23-29) mEq/L BUN 17 (8-23) mg/dL Creatinine 1.16 (0.70-1.30) mg/dL Est GFR ( Amer) > 60 (> 60) Est GFR (Non-Af Amer) > 60 (> 60) BUN/Creatinine Ratio 15 (6-26) Glucose 75 (70-105) mg/dL POC Glucose 92 (70-99) mg/dL Calculated Osmolality 290 (280-300) Lactic Acid (0.5-2.2) mmol/L Calcium 8.2 L (8.6-10.3) mg/dL Total Bilirubin 0.2 L (0.3-1.0) mg/dL AST 25 (13-39) Units/L ALT 20 (7-52) Units/L Alkaline Phosphatase 174 H (34-104) Units/L Troponin I < 0.03 (< 0.04) ng/mL Serum Total Protein 6.1 L (6.4-8.9) g/dL Albumin 2.8 L (3.5-5.7) g/dL Globulin 3.3 (2.4-3.5) g/dL Albumin/Globulin Ratio 0.8 L (1.1-2.2) Urine Color (Yellow) Urine Clarity (Clear) Urine pH (5.0-8.0) pH Units Ur Specific [place] (1.010-1.025) Urine Protein (Neg-Trace) mg/dL Urine Glucose (UA) (Normal) mg/dL Urine Ketones (Negative) mg/dL Urine Blood (Negative) Urine Nitrite (Negative) Urine Bilirubin (Negative) Urine Urobilinogen (Normal) mg/dL Ur Leukocyte Esterase (Negative) Urine Microscopic RBC (0-3) per hpf Urine Microscopic WBC (0-3) per hpf Ur Squamous Epith Cells (None-Few) per lpf Urine Bacteria (None-Few) per hpf Hyaline Casts (None-Few) per lpf Ur Culture Indicated? (NO) 02/18/19 02/18/19 Range/Units 20:46 21:52 WBC (4.3-11.1) K/mcL RBC (4.19-5.50) M/mcL Hgb (12.9-16.9) g/dL Hct (37.5-50.1) % MCV (83.0-100.0) fL MCH (28.0-33.3) pg MCHC (31.6-35.5) g/dL RDW (11.5-14.5) % Plt Count (140-400) K/mcL MPV (9.4-12.4) fL Immature Gran % (0-4) % Seg Neutrophils % % Lymphocytes % % Monocytes % % Eosinophils % % Basophils % % Neutrophils # (1.6-8.9) K/mcL Lymphocytes # (0.6-4.6) K/mcL Monocytes # (0.0-1.3) K/mcL Eosinophils # (0.0-0.6) K/mcL Basophils # (0.0-0.2) K/mcL Sodium (136-145) mEq/L Potassium (3.5-5.1) mEq/L Chloride (98-107) mEq/L Carbon Dioxide (23-29) mEq/L BUN (8-23) mg/dL Creatinine (0.70-1.30) mg/dL Est GFR ( Amer) (> 60) Est GFR (Non-Af Amer) (> 60) BUN/Creatinine Ratio (6-26) Glucose (70-105) mg/dL POC Glucose (70-99) mg/dL Calculated Osmolality (280-300) Lactic Acid 1.4 (0.5-2.2) mmol/L Calcium (8.6-10.3) mg/dL Total Bilirubin (0.3-1.0) mg/dL AST (13-39) Units/L ALT (7-52) Units/L Alkaline Phosphatase (34-104) Units/L Troponin I (< 0.04) ng/mL Serum Total Protein (6.4-8.9) g/dL Albumin (3.5-5.7) g/dL Globulin (2.4-3.5) g/dL Albumin/Globulin Ratio (1.1-2.2) Urine Color Yellow (Yellow) Urine Clarity Clear (Clear) Urine pH 6.0 (5.0-8.0) pH Units Ur Specific [place] 1.018 (1.010-1.025) Urine Protein >=300 H (Neg-Trace) mg/dL Urine Glucose (UA) Normal (Normal) mg/dL Urine Ketones Negative (Negative) mg/dL Urine Blood Small H (Negative) Urine Nitrite Negative (Negative) Urine Bilirubin Negative (Negative) Urine Urobilinogen Normal (Normal) mg/dL Ur Leukocyte Esterase Negative (Negative) Urine Microscopic RBC 3-5 H (0-3) per hpf Urine Microscopic WBC 5-15 H (0-3) per hpf Ur Squamous Epith Cells Many H (None-Few) per lpf Urine Bacteria None Seen (None-Few) per hpf Hyaline Casts Few (None-Few) per lpf Ur Culture Indicated? YES A (NO) - Radiology Data Radiology results reviewed: Yes I reviewed the patient's radiology results. Chest X-Ray 02/18/19 20:38 IMPRESSION: No focal consolidation. D/ / Reji Capps MD / Reji Capps MD Interpreting Provider: Reji Capps MD - EKG Data EKG #1 EKG attestation: Yes I reviewed and interpreted this EKG. EKG results narrative: Ekg showed normal sinus rhythm,. Normal axis Normal intervals. No acute ST elevation or T wave inversions. No acute changes from previous ekg. Attestation Statement - Attestation Attestation: I, Francisco Dodson, examined this patient and my medical decision-making was reviewed with the FOREST ECOLOGIST/PA/Advanced Practice Nurse/Resident Physician. I agree with the documented findings, disposition and treatment plan as described except to the extent set forth below. 73-year-old male presents emergency Department with concerns of altered mental status. Upon EMS arrival he had snoring respirations, he had of fingerstick blood sugar of 26. He was given dextrose in route to the hospital is now significantly improved. Patient is very hard of hearing and has difficulty giving history regarding his case presentation. He denies chest pain or shortness breath or abdominal pain. He does have a insulin pump which is on his anterior abdomen. He was given something to eat in the emergency department h owever he became hypoglycemic again. The insulin pump was then removed urine patient denies fever, chills, vomiting, diarrhea. He has a history of pancreatic cancer and is status post Whipple procedure. Blood pressure was significantly elevated upon arrival however it gradually improved with obse rvation. He did not have evidence of end organ dysfunction on laboratory testing. I reviewed the EKG with the resident and agree with the interpretation. Troponin negative. Patient will be admitted for further care and evaluation.
[2019-02-18 20:57] LABS: Basophils % 0.3 %; Eosinophils # 0.1 K/mcL (0.0-0.6); Hematocrit 35.3 % (37.5-50.1); Immature Granulocytes % 0.6 % (0-4); Lymphocytes # 0.9 K/mcL (0.6-4.6); Mean Corpuscular HGB Conc 31.2 g/dL (31.6-35.5); Mean Corpuscular Hemoglobin 27.3 pg (28.0-33.3); Mean Corpuscular Volume 87.6 fL (83.0-100.0); Mean Platelet Volume 11.1 fL (9.4-12.4); Monocytes # 0.7 K/mcL (0.0-1.3); Monocytes % 7.5 %; Neutrophils # 7.2 K/mcL (1.6-8.9); Platelet Count 171 K/mcL (140-400); Red Blood Count 4.03 M/mcL (4.19-5.50); Red Cell Distribution Width 16.7 % (11.5-14.5); Segmented Neutrophils % 80.6 %; White Blood Count 8.9 K/mcL (4.3-11.1)
[2019-02-18 21:17] LABS: Alanine Aminotransferase 20 Units/L (7-52); Albumin 2.8 g/dL (3.5-5.7); Albumin/Globulin Ratio 0.8 (1.1-2.2); Alkaline Phosphatase 174 Units/L (34-104); Aspartate Amino Transferase 25 Units/L (13-39); BUN/Creatinine Ratio 15 (6-26); Bilirubin,Total 0.2 mg/dL (0.3-1.0); Blood Urea Nitrogen 17 mg/dL (8-23); Calcium 8.2 mg/dL (8.6-10.3); Carbon Dioxide 20 mEq/L (23-29); Chloride 113 mEq/L (98-107); Globulin 3.3 g/dL (2.4-3.5); Glucose 75 mg/dL (70-105); Osmolality,Calculated 290 (280-300); Potassium 3.2 mEq/L (3.5-5.1); Sodium 140 mEq/L (136-145); Total Protein 6.1 g/dL (6.4-8.9); eGFR For African Americans > 60 (> 60); eGFR For Non-African Americans > 60 (> 60)
[2019-02-18] MEDS ORDERED: Potassium Chloride Elixir 20 MEQ/15 ML UDC PO ONE (21:22)
[2019-02-18] MEDS ORDERED: *HR* Dextrose 50 % in Water (Syg) 50 ML SYRINGE IVP ONE (21:47)
[2019-02-18] MEDS ORDERED: *HR* Metoprolol 5 MG/5 ML VIAL IVP ONE (21:50)
[2019-02-18] MEDS ORDERED: *HR* Dextrose 50 % in Water (Syg) 50 ML SYRINGE ONE (21:54)
[2019-02-18 22:01] LABS: Bilirubin,Urine Negative (Negative); Blood,Urine Small (Negative); Clarity,Urine Clear (Clear); Color,Urine Yellow (Yellow); Glucose,Urine (UA) Normal (Normal); Ketones,Urine Negative (Negative); Leukocyte Esterase,Urine Negative (Negative); Nitrite,Urine Negative (Negative); Protein,Urine >=300 mg/dL (Neg-Trace); Specific Gravity,Urine 1.018 (1.010-1.025); Urobilinogen,Urine Normal (Normal)
[2019-02-18 22:03] LABS: Bacteria,Urine None Seen per hpf (None-Few); Hyaline Casts,Urine Few per lpf (None-Few); Squamous Epithelial Cell,Urine Many per lpf (None-Few)
[2019-02-18 22:10] LABS: Troponin I < 0.03 ng/mL (< 0.04)
[2019-02-19] MEDS ORDERED: Naloxone 0.4 MG/ML INJ IVP PRN (02:05)
[2019-02-19] MEDS ORDERED: *HR* Dextrose 50 % in Water (Syg) 50 ML SYRINGE IVP PRN ×2 (02:06→10:03)
[2019-02-19] MEDS ORDERED: Dextrose Gel 15 GM/37.5 ML TUBE PO PRN ×4 (02:06→10:03)
[2019-02-19] MEDS ORDERED: D5% in Water 1,000 ML IVC PRN ×2 (02:06→10:03)
--- NOTE | 2019-02-19 02:13 | Internal Med History&Physical ---
Date of Encounter: 02/19/19 Time of Encounter: 00:19 Internal Medicine - H&P: HPI Chief complaint: Hypoglycemia Admitted From: Emergency Dept Plans for Post Hospital Care: Home History of present illness: Mr. Thurston is a 73 year old male Patient presented to the emergency department with hypoglycemia. He is very hard of hearing, but his is at bedside. She was concerned at home that the patient was not acting normally and upon checking his sugars they were in the 20s. She called the ambulance and the patient was transported to the hospital for further management. He has a history of diabetes and utilizes an insulin pump. The pump has been in place for one year, and there have not been previous issues with the insulin pump in the past. He also has a history of pancreatic cancer. In the emergency department patient's initial vital signs notable for a blood pressure 195/73 then later rechecked at 215/76. Upon arrival patient's blood sugar was 92. It did drop again to 37 however shortly thereafter CBC within normal limits BMP notable for potassium of 3.2 and a glucose of 75. Lactic acid 1.4 Initial troponin undetectable Urinalysis negative for infection Chest x-ray no focal consolidation EKG: Normal sinus rhythm, rate 84, QTC 467 ms, no ischemic changes. In the emergency department patient received an amp of D50 as well as 40 mEq of potassium. The insulin pump was removed and patient was admitted to the hospital for further monitoring. Upon my evaluation, patient is resting comfortably in the hospital bed in no acute distress. He is hard of hearing, but does answer questions. He denies chest pain, abdominal pain, nausea, vomiting, diarrhea and constipation. He is a full code. Past Med Surg Social Fam HX - Past Medical History Medical history: arthritis, cancer, COPD, diabetes, hyperlipidemia, hypertension, other Additional medical history: pancreatic cancer Psychiatric history: no psych history - Past Surgical History Surgical History: appendectomy, herniorrhaphy, other Additional surgical history: removed part of colon and pancreas d/t pancreatic cancer - Social History Smoking Status: Current every day smoker Smokeless Tobacco Status: No Alcohol use: none Drug use: none - Family History Brother Living Status: Hx Family Cancer: Yes Internal Medicine - H&P: Meds Aspirin 81 mg PO DAILY 10/19/16 [History] Atorvastatin Calcium [Lipitor] 20 mg PO DAILY 10/19/16 [History] Cholecalciferol (Vitamin D3) [Vitamin D3] 1,000 unit PO DAILY 10/19/16 [History] Insulin Glargine [Lantus] 25 - 30 unit SQ DAILY 10/19/16 [History] Lisinopril [Zestril] 40 mg PO DAILY 10/19/16 [History] metFORMIN [Glucophage] 500 mg PO DAILY 01/20/17 [History] Potassium Chloride [K-Tab ER] 20 meq PO DAILY #20 tablet.er 02/02/17 [Rx] Furosemide [Lasix] 20 mg PO DAILY 08/27/17 [History] Garlic [Odorless Garlic] 1,000 mg PO DAILY 08/27/17 [History] Lidocaine/Prilocaine [Emla] 1 appl TP TID #30 gm 09/10/17 [Rx] Ascorbic Acid [Vitamin C] 500 mg PO DAILY #30 tablet 12/01/18 [Rx] Ferrous Sulfate [Iron] 325 mg PO DAILY #30 tablet 12/01/18 [Rx] Cyanocobalamin (Vitamin B-12) [Vitamin B12] 5,000 mcg PO DAILY 02/18/19 [History] Levothyroxine Sodium [Levoxyl] 50 mcg PO DAILY 02/18/19 [History] Pregabalin [Lyrica] 100 mg PO BID 02/18/19 [History] Allergy/AdvReac Type Severity Reaction Status Date / Time No Known Allergies Allergy Verified 02/18/19 20:30 All Systems PM: A 10-system review of systems was performed and is negative for pertinent findings except as documented above in the HPI. - Constitutional Vitals: Temp Pulse Resp BP Pulse Ox 97.7 F 88 14 161/68 93 02/19/19 02:00 02/19/19 02:00 02/19/19 02:00 02/19/19 02:00 02/19/19 02:00 General appearance: Present: cooperative, pleasant, no acute distress, answers questions appropriately Exam: Hard of hearing, but does cooperate with exam and answer questions - Head Head exam: Present: normal inspection - Eye Eye exam: Present: EOMI, normal appearance - Neck Neck exam general surgery: Present: full ROM - Respiratory Respiratory exam: Present: CTAB. Absent: rales, respiratory distress, rhonchi, wheezes - Cardiovascular Cardiovascular exam: Present: RRR. Absent: diastolic murmur, systolic murmur - GI/Abdominal GI/Abdominal exam: Present: normal bowel sounds, soft. Absent: tenderness - Extremities Exam Extremities exam: Present: warm, radial pulses palpable and symmetrical. Absent: calf tenderness, pedal edema, tenderness - Neurological Exam Neurological exam: Present: no focal deficits, strengths equal and symetr throughout. Absent: motor sensory deficit, facial droop, speech deficit Additional comments: Hard of hearing - Skin Skin exam: Present: dry, normal color, warm Internal Med - H&P Results - Labs CBC & Chem 7: 02/18/19 20:38 02/18/19 20:38 Labs: Short CBC 02/18/19 Range/Units 20:38 WBC 8.9 (4.3-11.1) K/mcL Hgb 11.0 L (12.9-16.9) g/dL Hct 35.3 L (37.5-50.1) % Plt Count 171 (140-400) K/mcL Neutrophils # 7.2 (1.6-8.9) K/mcL BMP 02/18/19 20:38 Sodium 140 Potassium 3.2 L Chloride 113 H Carbon Dioxide 20 L BUN 17 Creatinine 1.16 Glucose 75 Calcium 8.2 L Cardiac Enzymes 02/18/19 Range/Units 20:38 Troponin I < 0.03 (< 0.04) ng/mL Liver Function 02/18/19 Range/Units 20:38 Total Bilirubin 0.2 L (0.3-1.0) mg/dL AST 25 (13-39) Units/L ALT 20 (7-52) Units/L Alkaline Phosphatase 174 H (34-104) Units/L Albumin 2.8 L (3.5-5.7) g/dL Urine 02/18/19 Range/Units 21:52 Urine Color Yellow (Yellow) Urine Clarity Clear (Clear) Urine pH 6.0 (5.0-8.0) pH Units Ur Specific [place] 1.018 (1.010-1.025) Urine Protein >=300 H (Neg-Trace) mg/dL Urine Glucose (UA) Normal (Normal) mg/dL - Impressions ITS Impressions Chest X-Ray 02/18/19 20:38 IMPRESSION: No focal consolidation. D/ / Reji Capps MD / Reji Capps MD Interpreting Provider: Reji Capps MD - Assessment and Plan (1) Hypoglycemia Current Visit: Yes Status: Acute Assessment and plan: Likely secondary to insulin pump malfunction. Patient has been eating appropriately at home. Blood sugars have improved since the removal of the insulin pump. Continue to monitor blood sugars Hold off on insulin Diabetic diet Accu-Cheks every 2 hours (2) Hypertension Current Visit: Yes Status: Acute Assessment and plan: Elevated blood pressure in the emergency room has returned to normal upon arrival to the floor without intervention. Continue to monitor blood pressure Qualifiers: Hypertension type: essential hypertension Qualified Code(s): I10 - Essential (primary) hypertension (3) Hypokalemia Current Visit: Yes Status: Acute Assessment and plan: Potassium 3.2 in the emergency department. Patient was given 40 mEq of potassium in the ER. Repeat labs in the morning Check magnesium Replete as indicated (4) Diabetes mellitus Current Visit: No Status: Chronic Assessment and plan: Presenting with hypoglycemia due to insulin pump. Insulin pump has been removed Monitor sugars every 6 hours Diabetic diet Hold home meds. Insulin regimen adjustment at discharge Qualifiers: Diabetes mellitus type: type 2 Diabetes mellitus alf insulin use: without exterminator helper termite use Diabetes mellitus complication status: with other specified complication Qualified Code(s): E11.69 - Type 2 diabetes mellitus with other specified complication (5) Tobacco abuse Current Visit: No Status: Chronic Assessment and plan: Nicotine patch as needed (6) DVT prophylaxis Current Visit: No Status: Acute Assessment and plan: Subcutaneous heparin - Time Spent With Patient Total time spent is greater than 50% in coordination of care (as documented) at patient's floor/unit and/or counseling patient: Greater than 35 minutes
[2019-02-19] MEDS ORDERED: Nicotine 21 MG PATCH.TD24 TD PRN (02:19)
[2019-02-19 04:47] LABS: Hemoglobin 10.3 g/dL (12.9-16.9); Red Cell Distribution Width 16.4 % (11.5-14.5)
[2019-02-19 04:49] LABS: Hematocrit 31.4 % (37.5-50.1); Immature Platelets 7.6 % (1.1-6.1); Mean Corpuscular HGB Conc 32.8 g/dL (31.6-35.5); Mean Corpuscular Hemoglobin 27.9 pg (28.0-33.3); Mean Corpuscular Volume 85.1 fL (83.0-100.0); Platelet Count 141 K/mcL (140-400); Red Blood Count 3.69 M/mcL (4.19-5.50); White Blood Count 10.3 K/mcL (4.3-11.1)
[2019-02-19 05:03] LABS: BUN/Creatinine Ratio 17 (6-26); Blood Urea Nitrogen 18 mg/dL (8-23); Calcium 7.6 mg/dL (8.6-10.3); Carbon Dioxide 16 mEq/L (23-29); Chloride 114 mEq/L (98-107); Glucose 192 mg/dL (70-105); Magnesium 1.8 mg/dL (1.6-2.6); Osmolality,Calculated 295 (280-300); Potassium 3.6 mEq/L (3.5-5.1); Sodium 139 mEq/L (136-145); eGFR For African Americans > 60 (> 60); eGFR For Non-African Americans > 60 (> 60)
[2019-02-19] MEDS: *HR* Heparin 5,000 UNIT/ML VIAL SQ SCH ×2 (05:54→17:43)
[2019-02-19] MEDS: Lisinopril 20 MG TABLET PO SCH (09:21)
--- NOTE | 2019-02-19 09:58 | Internal Med Progress Note ---
Hospitalist Progress Note - Encounter Date of Encounter: 02/19/19 Time of Encounter: 09:56 - Subjective Interval History: the patient was seen and examined at bedside. patient is hard of hearing denies CP or SOB BS 199, d/c D5 infusion and closely monitor BS insulin pump has removed - Exam Vitals: Temp Pulse Resp BP Pulse Ox 97.8 F 95 16 176/76 95 02/19/19 06:46 02/19/19 06:46 02/19/19 06:46 02/19/19 06:46 02/19/19 06:46 Exam: Physical examination: Gen.: Patient is alert and awake , hard of hearing , not in respiratory distress or pain HEENT: perrla , EOMI, no thyroid gland enlargement, no neck mass, supple neck Heart: S1 and S2 [place], normal sinus rhythm, no cardiac murmur no gallop rhythm Chest: Air entry equal bilaterally, clear chest, no wheezing, crackles or crepitation Abdomen: Soft nontender nondistended positive bowel sounds, no organomegaly Extremities: No pitting edema, peripheral pulses palpable, no cyanosis tenderness Neuro: Able to move all 4 limbs DVT Prophylaxis: heparin - Summary of Assessment and Plan Summary of Assessment and Plan: (1) Hypoglycemia Current Visit: Yes Status: Acute Assessment and plan: Likely secondary to insulin pump malfunction. Patient has been eating appropriately at home. Blood sugars have improved since the removal of the insulin pump. Continue to monitor blood sugars d/c D 5 infusion closely monitor BS Hold off on insulin Diabetic diet Accu-Cheks every 2 hours (2) Hypertension Current Visit: Yes Status: Acute Assessment and plan: resume on home BP medication Lisinopril 40 mg daily Qualifiers: Hypertension type: essential hypertension Qualified Code(s): I10 - Essential (primary) hypertension (3) Hypokalemia Current Visit: Yes Status: Acute Assessment and plan: replaced check serum phosphorus (4) Diabetes mellitus Current Visit: No Status: Chronic Assessment and plan: Presenting with hypoglycemia due to insulin pump. Insulin pump has been removed probably need long acting insulin on discharge Diabetic diet Hold home meds. Insulin regimen adjustment at discharge Qualifiers: Diabetes mellitus type: type 2 Diabetes mellitus senior care insulin use: without corrections officer use Diabetes mellitus complication status: with other specified complication Qualified Code(s): E11.69 - Type 2 diabetes mellitus with other specified complication (5) Tobacco abuse Current Visit: No Status: Chronic Assessment and plan: Nicotine patch as needed (6) DVT prophylaxis Current Visit: No Status: Acute Assessment and plan: Subcutaneous heparin - Time Spent with Patient Total time spent is greater than 50% in coordination of care (as documented) at patient's floor/unit and/or counseling patient: Internal Medicine: Result - Labs CBC & Chem 7: 02/19/19 04:31 02/19/19 04:31 Labs: Short CBC 02/18/19 02/19/19 Range/Units 20:38 04:31 WBC 8.9 10.3 (4.3-11.1) K/mcL Hgb 11.0 L 10.3 L (12.9-16.9) g/dL Hct 35.3 L 31.4 L (37.5-50.1) % Plt Count 171 141 (140-400) K/mcL Neutrophils # 7.2 (1.6-8.9) K/mcL BMP 02/18/19 02/19/19 20:38 04:31 Sodium 140 139 Potassium 3.2 L 3.6 Chloride 113 H 114 H Carbon Dioxide 20 L 16 L BUN 17 18 Creatinine 1.16 1.06 Glucose 75 192 H Calcium 8.2 L 7.6 L Cardiac Enzymes 02/18/19 Range/Units 20:38 Troponin I < 0.03 (< 0.04) ng/mL Liver Function 02/18/19 Range/Units 20:38 Total Bilirubin 0.2 L (0.3-1.0) mg/dL AST 25 (13-39) Units/L ALT 20 (7-52) Units/L Alkaline Phosphatase 174 H (34-104) Units/L Albumin 2.8 L (3.5-5.7) g/dL Urine 02/18/19 Range/Units 21:52 Urine Color Yellow (Yellow) Urine Clarity Clear (Clear) Urine pH 6.0 (5.0-8.0) pH Units Ur Specific [place] 1.018 (1.010-1.025) Urine Protein >=300 H (Neg-Trace) mg/dL Urine Glucose (UA) Normal (Normal) mg/dL - Impressions Impressions Chest X-Ray 02/18/19 20:38 IMPRESSION: No focal consolidation. D/ / Reji Capps MD / Reji Capps MD Interpreting Provider: Reji Capps MD Consult Discharge Plan - Plan [facility]: [facility] [Primary Care Provider[facility] -
[2019-02-19] MEDS: Insulin LISPRO 300 UNITS/3 ML VIAL SQ SCH ×2 (11:18→17:41)
[2019-02-19 11:54] LABS: Phosphorous 3.2 mg/dL (2.7-4.5)
[2019-02-20] MEDS: *HR* Heparin 5,000 UNIT/ML VIAL SQ SCH (05:51)
[2019-02-20] MEDS: Insulin LISPRO 300 UNITS/3 ML VIAL SQ SCH (08:51)
[2019-02-20] MEDS: Lisinopril 20 MG TABLET PO SCH (08:52)
[2019-02-20 08:57] LABS: Estimated Average Glucose 200 mg/dl
[2019-02-20 09:24] VITALS: BP 216/87
--- NOTE | 2019-02-20 09:25 | Discharge Summary ---
- NOTES TO OUTPATIENT PROVIDER Notes to Outpatient Provider: f/u with PCP in one week. f/u with [facility] in one week. Please stop taking Insulin at home. 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 Thurston is a 73 year old male with known past medical history of hypertension, hyperlipidemia, hypothyroidism and DM2 who is on lantus and ?? Insulin pump ( which is not working now ) with recent HbA1C @ 7.9 pt was brought into the hospital by stating he was more confused and not acting himself. It seems to be he was very hypoglycemia and BS in 20's. he was given D50 and D5 Iv hydration. His blood sugars improved. His HbA1C 8.6. Now it seems pt has been taking too much Lantus at home. It is too risky for him to be on insulin inj so talked to pt's daughter at bed side and explained to her about the changes. Started him on Metformin 500mg BID and Glipizide 5mg BID. Also recommended to stop his Lantus / Insulin. He does have some fluctuations in his BP. This morning he is so agitated and wanted to leave the hospital. So his BP stayed high in 200's. He is alert, awake and O x 4. Daughter was at bed side explained to her about this situation and with BP being so high I can not send him home now since he may get stroke with that high BP. However since pt is getting more and more agitated and BP keep going high, he decided to sign AMA paper and leave now. I added another BP med Metoprolol to his home Med Lisinopril. I asked the family to check his BP after few hrs at home when he calms down. - Time Spent with Patient Total time spent providing and/or coordinating discharge services: - Discharge Medications Prescriptions: New GlipiZIDE [Glucotrol] 5 mg PO BIDWM #60 tablet Metoprolol [Lopressor] 25 mg PO BID #60 tablet Nicotine Patch [Nicoderm] 21 mg TD DAILY PRN #30 patch.td24 PRN Reason: Nicotine Cravings Continued Lisinopril [Zestril] 40 mg PO DAILY Cholecalciferol (Vitamin D3) [Vitamin D3] 1,000 unit PO DAILY Atorvastatin Calcium [Lipitor] 20 mg PO DAILY Aspirin 81 mg PO DAILY Potassium Chloride [K-Tab ER] 20 meq PO DAILY #20 tablet.er Furosemide [Lasix] 20 mg PO DAILY Garlic [Odorless Garlic] 1,000 mg PO DAILY Lidocaine/Prilocaine [Emla] 1 appl TP TID #30 gm Ferrous Sulfate [Iron] 325 mg PO DAILY #30 tablet Ascorbic Acid [Vitamin C] 500 mg PO DAILY #30 tablet Cyanocobalamin (Vitamin B-12) [Vitamin B12] 5,000 mcg PO DAILY Levothyroxine Sodium [Levoxyl] 50 mcg PO DAILY Pregabalin [Lyrica] 100 mg PO BID Changed metFORMIN [Glucophage] 500 mg PO BID #60 tablet Discontinued Insulin Glargine [Lantus] 25 - 30 unit SQ DAILY Home Medications: Aspirin 81 mg PO DAILY 10/19/16 [History] Atorvastatin Calcium [Lipitor] 20 mg PO DAILY 10/19/16 [History] Cholecalciferol (Vitamin D3) [Vitamin D3] 1,000 unit PO DAILY 10/19/16 [History] Lisinopril [Zestril] 40 mg PO DAILY 10/19/16 [History] Potassium Chloride [K-Tab ER] 20 meq PO DAILY #20 tablet.er 02/02/17 [Rx] Furosemide [Lasix] 20 mg PO DAILY 08/27/17 [History] Garlic [Odorless Garlic] 1,000 mg PO DAILY 08/27/17 [History] Lidocaine/Prilocaine [Emla] 1 appl TP TID #30 gm 02/16/18 [Rx] Ascorbic Acid [Vitamin C] 500 mg PO DAILY #30 tablet 12/01/18 [Rx] Ferrous Sulfate [Iron] 325 mg PO DAILY #30 tablet 12/01/18 [Rx] Cyanocobalamin (Vitamin B-12) [Vitamin B12] 5,000 mcg PO DAILY 02/18/19 [History] Levothyroxine Sodium [Levoxyl] 50 mcg PO DAILY 02/18/19 [History] Pregabalin [Lyrica] 100 mg PO BID 02/18/19 [History] GlipiZIDE [Glucotrol] 5 mg PO BIDWM #60 tablet 02/20/19 [Rx] Metoprolol [Lopressor] 25 mg PO BID #60 tablet 02/20/19 [Rx] Nicotine Patch [Nicoderm] 21 mg TD DAILY PRN #30 patch.td24 02/20/19 [Rx] metFORMIN [Glucophage] 500 mg PO BID #60 tablet 02/20/19 [Rx] Allergies/Adverse Reactions: Allergy/AdvReac Type Severity Reaction Status Date / Time No Known Allergies Allergy Verified 02/18/19 20:30 Date of admission: 02/18/19 22:33 Primary care physician: PCP ELI - Constitutional Vitals: Temp Pulse Resp BP Pulse Ox 97.8 F 103 15 212/92 95 02/20/19 08:25 02/20/19 08:25 02/20/19 08:25 02/20/19 08:25 02/20/19 08:25 General appearance: Present: cooperative, A&O X 3, pleasant, no acute distress, answers questions appropriately Exam: Gen: Alert, awake, Oriented to time,place and person..Very agitated Chest: Diminished breath sounds B/L, No wheezing, No crackles, No rales Heart: S1S2+ RRR No murmurs Abd: Soft, NT, BS +, No organomegaly Ext: No edema, pulses are palpable, No calf tenderness Neuro : No acute focal neuro deficits noticed Skin: No rash. - Patient Status Disposition: Left Against Medical Advice Condition: Fair Overall status at discharge: patient is back to baseline - Discharge Instructions [facility]: [facility] - (Please call Wednesday to schedule hospital follow up appointment for 7-10 days from date of discharge. ) - Diet and Activity Activity: increase activity as tolerated Diet: low salt diet
--- NOTE | 2019-02-20 14:26 | Electrocardiograph Report ---
[address] [place], [place] [address] Test Date: 2019-02-18 Pat Name: Elias Thurston Department: [id number] Room: 3B63 Gender: M Physician Relations Representative: : 1945 Requested By: Jose Alejandro Burrell Order Number: [id number] Reading MD: Tom Bustillo Measurements Intervals [place] Rate: 84 P: -14 AL: 199 QRS: 36 QRSD: 75 T: 57 QT: 395 QTc: 467 Interpretive Statements Sinus rhythm Borderline low voltage, extremity leads Electronically Signed On 02-20-2019 14:25:03 EDT by Tom Bustillo
== END 2019-02-20 09:30 | disposition left against medical advice (07) ==
LOC: 3BNU 20:24 → EMEROOARM 20:24 → SUATTDRO 22:33 → 3BNU 23:55
PROVIDERS: ADMIT Family Medicine; ATTEND Family Medicine